=== PATIENT | male | born 1985 | race Caucasian/White ===

== ENCOUNTER 2018-03-11 11:37 | Emergency (ER) | payer OTHER, MEDICAID, SELFPAY ==
[2018-03-11 11:57] VITALS: BP 133/81; PULSE 77; RESP 18; TEMP 37.1; O2SAT 97
--- NOTE | 2018-03-11 14:19 | ED.HA ---
HPI - Headache <Anu Strickland PA-C - Last Filed: 03/11/18 20:50> General Chief Complaint: Headache Stated Complaint: MIGRANE Time Seen by Provider: 03/11/18 14:19 Source: patient Mode of arrival: ambulatory Limitations: no limitations History of Present Illness HPI Narrative: This 32-year-old male comes to the ED today due to migraine which is not improving with [id number] medication. He is a and has had numerous concussions. States he has chronic daily headache, but he has also had migraines for many years, up to twice a month, and sometimes down improve with [id number] Percogesic. He states that this is a typical migraine for him with generalized headache along with sensitivity to light as well as noise and smells. He states that he tried to drink coffee this morning and vomited that, still has some nausea but states this has not improved since he arrived here. He has not been sick recently, denies fever, earache or recent illness. He has not had any difficulty with new weakness, walking or talking and significant other who accompanies with him states he seems normal in terms of mentation and coordination today. Related Data Home Medications Medication Instructions Recorded Confirmed Unknown Night Medication 1 tab PO BEDTIME PRN 03/11/18 03/11/18 diphenhydramine-acetaminophen 1 tab PO PRN PRN 03/11/18 03/11/18 [Percogesic] metoprolol tartrate 1 tab PO BID 03/11/18 03/11/18 Allergies Allergy/AdvReac Type Severity Reaction Status Date / Time amoxicillin Allergy Verified 03/11/18 11:56 Review of Systems <Anu Strickland PA-C - Last Filed: 03/11/18 20:50> Review of Systems All systems reviewed & are unremarkable except as noted in HPI and below Exam <Anu Strickland PA-C - Last Filed: 03/11/18 20:50> Narrative Exam Narrative: GENERAL APPEARANCE: Patient sitting comfortably, in no distress. HEENT: PERRL, EOMI, normal TMs and oropharynx, no sinus TTP NECK: Supple LUNGS: Clear to auscultation bilaterally. HEART: Rate and rhythm regular without murmur, normal S1 and S2, no S3 or S4. ABDOMEN: Soft, NT, ND, + BS x 4 quadrants NEUROLOGIC: Alert and oriented, normal speech, gait and coordination. MUSCULOSKELETAL: Full Csp AROM Initial Vital Signs Initial Vital Signs: Vital Signs Temperature 98.7 F 03/11/18 11:57 Pulse Rate 77 03/11/18 11:57 Respiratory Rate 18 03/11/18 11:57 Blood Pressure 133/81 H 03/11/18 11:57 Pulse Oximetry 97 03/11/18 11:57 <Marysol Vazquez DO - Last Filed: 03/12/18 08:51> Initial Vital Signs Initial Vital Signs: Vital Signs Temperature 98.7 F 03/11/18 11:57 Pulse Rate 77 03/11/18 11:57 Respiratory Rate 18 03/11/18 11:57 Blood Pressure 133/81 H 03/11/18 11:57 Pulse Oximetry 97 03/11/18 11:57 Course <Anu Strickland PA-C - Last Filed: 03/11/18 20:50> Hospital Course: Patient reported feeling much improved after administration of fluids and medications Orders Ordered: Discontinued Medications Sodium Chloride (Normal Saline 0.9%) 1,000 mls @ 1,000 mls/hr IV BOLUS ONE Stop: 03/11/18 14:40 Last Infusion: 03/11/18 16:05 Dose: 0 mls/hr Admin: 03/11/18 14:31 Dose: 1,000 mls/hr Ketorolac Tromethamine (Toradol) 30 mg IV NOW ONE Stop: 03/11/18 14:29 Last Admin: 03/11/18 14:30 Dose: 30 mg Ondansetron HCl (Zofran) 4 mg IV NOW ONE Stop: 03/11/18 13:42 Last Admin: 03/11/18 14:30 Dose: 4 mg Vital Signs - 8 hr 03/11/18 16:02 Pulse Rate 66 Respiratory Rate 14 Blood Pressure [Right Arm] 115/68 Pulse Oximetry 95 <Marysol Vazquez DO - Last Filed: 03/12/18 08:51> Orders Ordered: Discontinued Medications Sodium Chloride (Normal Saline 0.9%) 1,000 mls @ 1,000 mls/hr IV BOLUS ONE Stop: 03/11/18 14:40 Last Infusion: 03/11/18 16:05 Dose: 0 mls/hr Admin: 03/11/18 14:31 Dose: 1,000 mls/hr Ketorolac Tromethamine (Toradol) 30 mg IV NOW ONE Stop: 03/11/18 14:29 Last Admin: 03/11/18 14:30 Dose: 30 mg Ondansetron HCl (Zofran) 4 mg IV NOW ONE Stop: 03/11/18 13:42 Last Admin: 03/11/18 14:30 Dose: 4 mg Vital Signs - 8 hr 03/11/18 16:02 Pulse Rate 66 Respiratory Rate 14 Blood Pressure [Right Arm] 115/68 Pulse Oximetry 95 Discharge Plan Departure Patient Disposition: Home, Self-Care Clinical Impression: Migraine Discharge Date/Time: 03/11/18 16:14 Interventions: ED Discharge Assessment Last Done: 03/11/18 16:14 Instructions: DI for Migraine Activity Restrictions/Additional Instructions: Please get to the closest ED if you have any acutely worsening symptoms, otherwise rest in a dark, quiet room for the rest of the day. Continue your usual medications. You should follow up with your PCP to discuss whether you should be on preventative medication for your migraines Prescriptions: No Action metoprolol tartrate 25 mg tablet 1 tab PO BID RF: 0 diphenhydramine-acetaminophen [Percogesic] 12.5-325 mg Tablet 1 tab PO PRN PRN (Reason: Headache) RF: 0 Unknown Night Medication 1 tab PO BEDTIME PRN (Reason: Migraine Headache) RF: 0 Referrals: Zac WONG [Other] <Marysol Vazquez DO - Last Filed: 03/12/18 08:51> Cosign ED Attending Khurramature Attestation: I was immediately available in the department for consultation. Documentation has been reviewed. I agree with assessment and plan.
[2018-03-11] MEDS: ONDANSETRON 4 MG/2 ML INJ IV (14:30)
[2018-03-11] MEDS: KETOROLAC 60 MG/2 ML VIAL 30 MG IV (14:30)
[2018-03-11] MEDS: SODIUM CHLORIDE 0.9% 1,000 ML 1000 ML IV (14:31)
[2018-03-11 16:02] VITALS: BP 115/68; PULSE 66; RESP 14; O2SAT 95
== END 2018-03-11 16:14 | disposition home or self-care (01) ==
PROVIDERS: Emergency Provider Internal Medicine
DX: G43.909 Migraine, unspecified, not intractable, without status migrainosus (principal)
CPT/HCPCS: 96361; 96374; 96375; 99283; 99284; J1885; J2405

== ENCOUNTER 2018-12-02 16:47 | Emergency (ER) | payer OTHER, MEDICAID, SELFPAY ==
[2018-12-02 16:54] VITALS: BP 143/82; PULSE 89; RESP 19; TEMP 37.2; O2SAT 96; BMI 32.2
--- NOTE | 2018-12-02 19:59 | PC.NURSE ---
pt reports tooth has been broken for a long time. Denies fever, chills N/V/D, vision changes, jaw pain. Reports that he is having a headache from the tooth and his right ear hurts In front of it motioning to the front of his right ear.
--- NOTE | 2018-12-02 20:01 | PC.NURSE ---
Pt states he has an appointment with [facility] for dental care tomorrow. States I was hoping I could sleep some tonight and is in the ER for pain relief.
--- NOTE | 2018-12-02 20:14 | ED.DENTAL ---
HPI - Dental/Oral <Anu Strickland PA-C - Last Filed: 12/02/18 22:41> General Chief complaint: Dental/Oral Stated complaint: TOOTH INFECTION RIGHT SIDE PAIN MIGRAINE Time Seen by Provider: 12/02/18 19:57 Source: patient Mode of arrival: ambulatory Limitations: no limitations History of Present Illness HPI Narrative: This 33-year-old male complains of worsening dental pain. He states that he has had a broken right lower tooth for some time, however pain has been worsening for the past few days to the point that his usual usrf-ewc-[id number] pain relievers (since that time, oragel, warm salt water), are not helping. He states that he has not had any fever. He has not had any new cough, cold, or respiratory symptoms. No earache or sinus pain. He states that he tends to try to avoid medications at home including NSAIDs as he took a lot in the in past. Did take a leftover [place] that he had from shoulder problems and this did not help. He states that he does have a dental appointment in the morning at [facility] and was hoping to get some pain medication for this to help him sleep tonight. He states that he used to use pain medications in the past for injuries but does not now. Review of state [employer] database shows no prescriptions Related Data Home Medications Medication Instructions Recorded Confirmed Unknown Night Medication 1 tab PO BEDTIME PRN 03/11/18 03/11/18 diphenhydramine-acetaminophen 1 tab PO PRN PRN 03/11/18 03/11/18 [Percogesic] metoprolol tartrate 1 tab PO BID 03/11/18 03/11/18 Allergies Allergy/AdvReac Type Severity Reaction Status Date / Time amoxicillin Allergy Verified 03/11/18 11:56 Review of Systems <Anu Strickland PA-C - Last Filed: 12/02/18 22:41> Review of Systems ROS Unobtainable: All systems reviewed & are unremarkable except as noted in HPI and below PFSH <Anu Strickland PA-C - Last Filed: 12/02/18 22:41> Medical History Chronic back pain (Chronic) Chronic daily headache (Chronic) History of multiple concussions (Chronic) Migraine headache (Chronic) Tendinitis (Chronic) Surgical History Hx of tympanostomy tubes (Resolved) Social History Smoking Status: Current every day smoker Tobacco: How many years used: 20 alcohol intake: current substance use type: marijuana Social History Smoking Status: Current every day smoker Tobacco: How many years used: 20 alcohol intake: current substance use type: marijuana Exam <Anu Strickland PA-C - Last Filed: 12/02/18 22:41> Narrative Exam Narrative: GENERAL APPEARANCE: Patient sitting comfortably, in no distress. HEAD: No sinus TTP. EYES: PERRL, EOMI. EARS: Normal auditory canals, TMS intact with normal light reflexes. ORAL CAVITY: Poor dentition with multiple repairs and fractures right lower premolars, 1 with some pulp exposed that is tender. No gumline inflammation or abscess. THROAT: Clear. NECK/THYROID: Neck supple, full range of motion, no cervical lymphadenopathy. LUNGS: Clear to auscultation HEART: RRR without murmur, nl S1, S2, no S3 or S4. Initial Vital Signs Initial Vital Signs: Vital Signs Temperature 98.9 F 12/02/18 16:54 Pulse Rate 89 12/02/18 16:54 Respiratory Rate 12/02/18 16:54 Blood Pressure 143/82 H 12/02/18 16:54 Pulse Oximetry 96 12/02/18 16:54 <Neo Galaviz DO - Last Filed: 12/02/18 22:56> Initial Vital Signs Initial Vital Signs: Vital Signs Temperature 98.9 F 12/02/18 16:54 Pulse Rate 89 12/02/18 16:54 Respiratory Rate 12/02/18 16:54 Blood Pressure 143/82 H 12/02/18 16:54 Pulse Oximetry 96 12/02/18 16:54 Course <Anu Strickland PA-C - Last Filed: 12/02/18 22:41> Orders Ordered: Discontinued Medications Ibuprofen (Advil) 800 mg PO NOW ONE Stop: 12/02/18 20:16 Last Admin: 12/02/18 20:19 Dose: 800 mg Oxycodone/Acetaminophen (Percocet 5/325) 2 tab PO NOW ONE Stop: 12/02/18 20:29 Last Admin: 12/02/18 20:40 Dose: 2 tab Vital Signs - 8 hr 12/02/18 16:54 12/02/18 21:17 Temperature 98.9 F Pulse Rate 89 72 Respiratory Rate 19 14 Blood Pressure 143/82 H 125/85 Pulse Oximetry 96 97 <Neo Galaviz DO - Last Filed: 12/02/18 22:56> Orders Ordered: Discontinued Medications Ibuprofen (Advil) 800 mg PO NOW ONE Stop: 12/02/18 20:16 Last Admin: 12/02/18 20:19 Dose: 800 mg Oxycodone/Acetaminophen (Percocet 5/325) 2 tab PO NOW ONE Stop: 12/02/18 20:29 Last Admin: 12/02/18 20:40 Dose: 2 tab Vital Signs - 8 hr 12/02/18 16:54 12/02/18 21:17 Temperature 98.9 F Pulse Rate 89 72 Respiratory Rate 19 14 Blood Pressure 143/82 H 125/85 Pulse Oximetry 96 97 Discharge Plan Departure Patient Disposition: Home Clinical Impression: Toothache Fracture of tooth Qualifiers: Encounter type: initial encounter Fracture type: closed Qualified Code(s): S02.5XXA - Fracture of tooth (traumatic), initial encounter for closed fracture Discharge Date/Time: 12/02/18 21:19 Interventions: ED Discharge Assessment Last Done: 12/02/18 21:17 Instructions: DI for Dental Pain Activity Restrictions/Additional Instructions: We have given you a dose of strong pain medication tonight along with ibuprofen to help inflammation. Please continue your Orajel at home, and see your dentist as planned tomorrow morning Prescriptions: No Action metoprolol tartrate 25 mg tablet 1 tab PO BID RF: 0 diphenhydramine-acetaminophen [Percogesic] 12.5-325 mg Tablet 1 tab PO PRN PRN (Reason: Headache) RF: 0 Unknown Night Medication 1 tab PO BEDTIME PRN (Reason: Migraine Headache) RF: 0 Referrals: MARVIN, Zac Palacios [Other] [facility] [Other] <Neo Galaviz DO - Last Filed: 12/02/18 22:56> Cosign ED Attending Laura Attestation: I was available for consultation during this patient's emergency department encounter
[2018-12-02] MEDS: IBUPROFEN 400 MG TABLET 800 MG PO (20:19)
--- NOTE | 2018-12-02 20:37 | ED_ITS ---
HPI - Dental/Oral <Anu Strickland PA-C - Last Filed: 12/02/18 22:41> General Chief complaint: Dental/Oral Stated complaint: TOOTH INFECTION RIGHT SIDE PAIN MIGRAINE Time Seen by Provider: 12/02/18 19:57 Source: patient Mode of arrival: ambulatory Limitations: no limitations History of Present Illness HPI Narrative: This 33-year-old male complains of worsening dental pain. He states that he has had a broken right lower tooth for some time, however pain has been worsening for the past few days to the point that his usual mjxf-ylb-[id number] pain relievers (since that time, oragel, warm salt water), are not helping. He states that he has not had any fever. He has not had any new cough, cold, or respiratory symptoms. No earache or sinus pain. He states that he tends to try to avoid medications at home including NSAIDs as he took a lot in the in past. Did take a leftover [place] that he had from shoulder problems and this did not help. He states that he does have a dental appointment in the morning at [facility] and was hoping to get some pain medication for this to help him sleep tonight. He states that he used to use pain medications in the past for injuries but does not now. Review of state [employer] database shows no prescriptions Related Data Home Medications Medication Instructions Recorded Confirmed Unknown Night Medication 1 tab PO BEDTIME PRN 03/11/18 03/11/18 diphenhydramine-acetaminophen 1 tab PO PRN PRN 03/11/18 03/11/18 [Percogesic] metoprolol tartrate 1 tab PO BID 03/11/18 03/11/18 Allergies Allergy/AdvReac Type Severity Reaction Status Date / Time amoxicillin Allergy Verified 03/11/18 11:56 Review of Systems <Anu Strickland PA-C - Last Filed: 12/02/18 22:41> Review of Systems ROS Unobtainable: All systems reviewed & are unremarkable except as noted in HPI and below PFSH <Anu Strickland PA-C - Last Filed: 12/02/18 22:41> Medical History Chronic back pain (Chronic) Chronic daily headache (Chronic) History of multiple concussions (Chronic) Migraine headache (Chronic) Tendinitis (Chronic) Surgical History Hx of tympanostomy tubes (Resolved) Social History Smoking Status: Current every day smoker Tobacco: How many years used: 20 alcohol intake: current substance use type: marijuana Social History Smoking Status: Current every day smoker Tobacco: How many years used: 20 alcohol intake: current substance use type: marijuana Exam <Anu Strickland PA-C - Last Filed: 12/02/18 22:41> Narrative Exam Narrative: GENERAL APPEARANCE: Patient sitting comfortably, in no distress. HEAD: No sinus TTP. EYES: PERRL, EOMI. EARS: Normal auditory canals, TMS intact with normal light reflexes. ORAL CAVITY: Poor dentition with multiple repairs and fractures right lower premolars, 1 with some pulp exposed that is tender. No gumline inflammation or abscess. THROAT: Clear. NECK/THYROID: Neck supple, full range of motion, no cervical lymphadenopathy. LUNGS: Clear to auscultation HEART: RRR without murmur, nl S1, S2, no S3 or S4. Initial Vital Signs Initial Vital Signs: Vital Signs Temperature 98.9 F 12/02/18 16:54 Pulse Rate 89 12/02/18 16:54 Respiratory Rate 12/02/18 16:54 Blood Pressure 143/82 H 12/02/18 16:54 Pulse Oximetry 96 12/02/18 16:54 <Neo Galaviz DO - Last Filed: 12/02/18 22:56> Initial Vital Signs Initial Vital Signs: Vital Signs Temperature 98.9 F 12/02/18 16:54 Pulse Rate 89 12/02/18 16:54 Respiratory Rate 12/02/18 16:54 Blood Pressure 143/82 H 12/02/18 16:54 Pulse Oximetry 96 12/02/18 16:54 Course <Anu Strickland PA-C - Last Filed: 12/02/18 22:41> Orders Ordered: Discontinued Medications Ibuprofen (Advil) 800 mg PO NOW ONE Stop: 12/02/18 20:16 Last Admin: 12/02/18 20:19 Dose: 800 mg Oxycodone/Acetaminophen (Percocet 5/325) 2 tab PO NOW ONE Stop: 12/02/18 20:29 Last Admin: 12/02/18 20:40 Dose: 2 tab Vital Signs - 8 hr 12/02/18 16:54 12/02/18 21:17 Temperature 98.9 F Pulse Rate 89 72 Respiratory Rate 19 14 Blood Pressure 143/82 H 125/85 Pulse Oximetry 96 97 <Neo Galaviz DO - Last Filed: 12/02/18 22:56> Orders Ordered: Discontinued Medications Ibuprofen (Advil) 800 mg PO NOW ONE Stop: 12/02/18 20:16 Last Admin: 12/02/18 20:19 Dose: 800 mg Oxycodone/Acetaminophen (Percocet 5/325) 2 tab PO NOW ONE Stop: 12/02/18 20:29 Last Admin: 12/02/18 20:40 Dose: 2 tab Vital Signs - 8 hr 12/02/18 16:54 12/02/18 21:17 Temperature 98.9 F Pulse Rate 89 72 Respiratory Rate 19 14 Blood Pressure 143/82 H 125/85 Pulse Oximetry 96 97 Discharge Plan Departure Patient Disposition: Home Clinical Impression: Toothache Fracture of tooth Qualifiers: Encounter type: initial encounter Fracture type: closed Qualified Code(s): S02.5XXA - Fracture of tooth (traumatic), initial encounter for closed fracture Discharge Date/Time: 12/02/18 21:19 Interventions: ED Discharge Assessment Last Done: 12/02/18 21:17 Instructions: DI for Dental Pain Activity Restrictions/Additional Instructions: We have given you a dose of strong pain medication tonight along with ibuprofen to help inflammation. Please continue your Orajel at home, and see your dentist as planned tomorrow morning Prescriptions: No Action metoprolol tartrate 25 mg tablet 1 tab PO BID RF: 0 diphenhydramine-acetaminophen [Percogesic] 12.5-325 mg Tablet 1 tab PO PRN PRN (Reason: Headache) RF: 0 Unknown Night Medication 1 tab PO BEDTIME PRN (Reason: Migraine Headache) RF: 0 Referrals: MARVIN, Zac Palacios [Other] [facility] [Other] <Neo Galaviz DO - Last Filed: 12/02/18 22:56> Cosign ED Attending Laura Attestation: I was available for consultation during this patient's emergency department encounter
[2018-12-02] MEDS: OXYCODONE/ACETAMINOPHEN 5/325 TABLET 2 TAB PO (20:40)
[2018-12-02 21:17] VITALS: BP 125/85; PULSE 72; RESP 14; O2SAT 97
== END 2018-12-02 21:19 | disposition home or self-care (01) ==
PROVIDERS: Emergency Provider Internal Medicine
DX: K03.81 Cracked tooth (principal)
CPT/HCPCS: 99282

== ENCOUNTER 2018-12-20 22:16 | Emergency (ER) | payer OTHER, MEDICAID, SELFPAY ==
[2018-12-20 23:04] VITALS: BP 152/93; PULSE 75; RESP 18; TEMP 36.9; O2SAT 98; BMI 31.9
[2018-12-21] MEDS: KETOROLAC 60 MG/2 ML VIAL 30 MG IV (01:08)
[2018-12-21] MEDS: diphenhydrAMINE 50 MG/ML VIAL 25 MG IV (01:08)
[2018-12-21] MEDS: METOCLOPRAMIDE 10 MG/2 ML INJ IV (01:09)
[2018-12-21] MEDS: SODIUM CHLORIDE 0.9% 1,000 ML 1000 ML IV (01:09)
--- NOTE | 2018-12-21 01:47 | ED.DENTAL ---
HPI - Dental/Oral General Chief complaint: Dental/Oral Stated complaint: DENTAL PAIN, HEADACHE Time Seen by Provider: 12/21/18 01:01 Source: patient Mode of arrival: ambulatory Limitations: no limitations History of Present Illness HPI Narrative: Patient is a 33-year-old male with a history of migraines here for evaluation of a migraine. He states that he has known dental issues both on the left lower in the left upper teeth. [place] His next scheduled dental appointment is not for several weeks. He states that his pain in the left side of his mouth has worsened over the past several days. Related Data Home Medications Medication Instructions Recorded Confirmed Unknown Night Medication 1 tab PO BEDTIME PRN 03/11/18 03/11/18 diphenhydramine-acetaminophen 1 tab PO PRN PRN 03/11/18 03/11/18 [Percogesic] metoprolol tartrate 1 tab PO BID 03/11/18 03/11/18 Previous Rx's Medication Instructions Recorded clindamycin HCl 300 mg PO Q6H 7 Days #28 cap 12/21/18 hydrocodone-acetaminophen [[place]] 1 tab PO Q4-6H PRN #10 tab 12/21/18 Allergies Allergy/AdvReac Type Severity Reaction Status Date / Time amoxicillin Allergy Verified 12/20/18 23:04 Review of Systems Constitutional Denies fatigue, Denies fever(s), Reports headache(s) and Denies weakness ENT Ears, Nose, Mouth, and Throat: Denies change in voice, Denies dizziness, Reports headache(s), Denies disequilibrium, Denies sore throat and Denies throat swelling Comments: Dental pain Cardiovascular Denies dyspnea Respiratory Denies dyspnea Musculoskeletal Denies myalgias and Denies arthralgias Integumentary/Breasts Denies rash Neurologic Denies confusion, Denies dizziness, Reports headache(s), Denies paresthesias, Denies disequilibrium and Denies weakness Psychiatric Denies anxiety and Denies confusion Endocrine Denies fatigue Allergic/Immunologic Denies throat swelling [facility] Medical History Chronic back pain (Chronic) Chronic daily headache (Chronic) History of multiple concussions (Chronic) Migraine headache (Chronic) Tendinitis (Chronic) Social History Smoking Status: Current every day smoker Tobacco: How many years used: 20 alcohol intake: current substance use type: marijuana Exam Initial Vital Signs Initial Vital Signs: Vital Signs Temperature 98.5 F 12/20/18 23:04 Pulse Rate 75 12/20/18 23:04 Respiratory Rate 18 12/20/18 23:04 Blood Pressure 152/93 H 12/20/18 23:04 Pulse Oximetry 98 12/20/18 23:04 Const General: well developed, well groomed and No acute distress Orientation: alert, awake and oriented x3 HENMT Teeth and gingiva: caries, poor dentition and other (Tooth 18. Fractured) Throat: posterior oropharynx normal Resp Effort & Inspection: normal respiratory effort Cardio Rate: regular rate Rhythm: regular rhythm Skin Lesions: no lesions Rashes: no rashes Neuro General: alert, awake and oriented x3 Cognition: normal cognition Speech: speech normal Gait: normal gait Extrem General: normal to inspection and capillary refill normal Psych Appearance: grossly normal and well kempt Course Orders Ordered: Discontinued Medications Hydrocodone Bitart/Acetaminophen (Vicodin Prepack) 1 bottle MISC SEEINSTR ONE Stop: 12/21/18 02:04 Last Admin: 12/21/18 02:44 Dose: 1 bottle Hydrocodone Bitart/Acetaminophen ([place] 5/325) 1 tab PO NOW ONE Stop: 12/21/18 02:04 Last Admin: 12/21/18 02:44 Dose: 1 tab Clindamycin HCl (Cleocin) 300 mg PO NOW ONE Stop: 12/21/18 02:04 Last Admin: 12/21/18 02:44 Dose: 300 mg Diphenhydramine HCl (Benadryl) 25 mg IV NOW ONE Stop: 12/21/18 00:38 Last Admin: 12/21/18 01:08 Dose: 25 mg Sodium Chloride (Normal Saline 0.9%) 1,000 mls @ 1,000 mls/hr IV BOLUS ONE Stop: 12/21/18 01:36 Last Infusion: 12/21/18 02:33 Dose: 0 mls/hr Admin: 12/21/18 01:09 Dose: 1,000 mls/hr Ketorolac Tromethamine (Toradol) 30 mg IV NOW ONE Stop: 12/21/18 00:38 Last Admin: 12/21/18 01:08 Dose: 30 mg Metoclopramide HCl (Reglan) 10 mg IV NOW ONE Stop: 12/21/18 00:38 Last Admin: 12/21/18 01:09 Dose: 10 mg Vital Signs - 8 hr 12/20/18 23:04 Temperature 98.5 F Pulse Rate 75 Respiratory Rate 18 Blood Pressure 152/93 H Pulse Oximetry 98 MDM - Dental/Oral MDM Narrative Medical decision making narrative: Patient reported improvement of some of his headache after the medicines here in the ER. Has no drainable abscess noted on the exam today. Does have multiple caries and fractured teeth. Informed him he needed to follow up with his dentist regarding this. Will send home with a prescription for pain medication and also antibiotics. He was given a 1st dose of these medications here in the ER. Patient expressed understanding and agreement plan. Discharge Plan Departure Patient Disposition: Home Clinical Impression: Dental caries Headache Qualifiers: Headache type: unspecified Headache chronicity pattern: unspecified pattern Intractability: not intractable Qualified Code(s): R51 - Headache Instructions: DI for Dental Pain Activity Restrictions/Additional Instructions: Take the medications as directed. You were given your 1st dose of antibiotics here in the emergency department. The next dose will be later this morning. Your dental issues do require a dentist. Return to the emergency department for any new or worsening symptoms Prescriptions: New clindamycin HCl 300 mg capsule 300 mg PO Q6H 7 Days Qty: 28 RF: 0 hydrocodone-acetaminophen [[place]] 5-325 mg tablet 1 tab PO Q4-6H PRN (Reason: pain) Qty: 10 RF: 0 No Action metoprolol tartrate 25 mg tablet 1 tab PO BID RF: 0 diphenhydramine-acetaminophen [Percogesic] 12.5-325 mg Tablet 1 tab PO PRN PRN (Reason: Headache) RF: 0 Unknown Night Medication 1 tab PO BEDTIME PRN (Reason: Migraine Headache) RF: 0
[2018-12-21] MEDS: HYDROCODONE/ACET 5/325 PREPACK 1 BOTTLE MISC (02:44)
[2018-12-21] MEDS: CLINDAMYCIN 150 MG CAPSULE 300 MG PO (02:44)
[2018-12-21] MEDS: HYDROCODONE/ACET 5/325 TABLET 1 TAB PO (02:44)
[2018-12-21 02:59] VITALS: BP 126/78; PULSE 80; RESP 18; O2SAT 98
== END 2018-12-21 03:05 | disposition home or self-care (01) ==
PROVIDERS: Emergency Provider Emergency Medicine
DX: K02.9 Dental caries, unspecified (principal); R51 Headache
CPT/HCPCS: 36591; 96361; 96374; 96375; 99283; 99284; J1200; J1885; J2765

== ENCOUNTER 2019-09-19 21:04 | Emergency (ER) | payer OTHER, MEDICAID, SELFPAY ==
[2019-09-19 21:13] VITALS: BP 138/78; PULSE 88; RESP 18; TEMP 36.9; O2SAT 98
--- NOTE | 2019-09-19 21:21 | ED.HA ---
HPI - Headache General Chief Complaint: Headache Stated Complaint: migraine Time Seen by Provider: 09/19/19 21:15 Source: patient Mode of arrival: Ambulatory Limitations: no limitations History of Present Illness HPI Narrative: 34-year-old male with a history of migraines here with what he states his migraine. He states that he did have a headache yesterday but he took his medication at home and is seem to keep it low. He states that today the medicines were not working. He states his feels just like his prior headaches. No fevers. Related Data Home Medications Medication Instructions Recorded Confirmed Unknown Night Medication 1 tab PO BEDTIME PRN 03/11/18 03/11/18 diphenhydramine-acetaminophen 1 tab PO PRN PRN 03/11/18 03/11/18 [Percogesic] metoprolol tartrate 1 tab PO BID 03/11/18 03/11/18 Previous Rx's Medication Instructions Recorded hydrocodone-acetaminophen [[place]] 1 tab PO Q4-6H PRN #10 tab 12/21/18 Allergies Allergy/AdvReac Type Severity Reaction Status Date / Time amoxicillin Allergy Verified 12/20/18 23:04 Review of Systems Constitutional Constitutional: Denies fever(s) and Reports headache(s) Eyes Eyes: Reports photophobia ENT Ears, Nose, Mouth, and Throat: Denies vertigo, Denies dizziness, Reports headache(s) and Denies disequilibrium Cardiovascular Cardiovascular: Denies chest pain and Denies dyspnea Respiratory Respiratory: Denies dyspnea Gastrointestinal Gastrointestinal: Denies abdominal pain Integumentary/Breasts Skin/Breast: Denies rash Neurologic Neurologic: Denies confusion, Denies vertigo, Denies dizziness, Reports headache(s) and Denies disequilibrium Psychiatric Psychiatric: Denies confusion Hematologic/Lymphatic Hematologic/Lymphatic: Denies easy bleeding and Denies easy bruising Patient History Medical History Chronic back pain (Chronic) Chronic daily headache (Chronic) History of multiple concussions (Chronic) Migraine headache (Chronic) Tendinitis (Chronic) Surgical History Hx of tympanostomy tubes (Resolved) Social History Smoking Status: Current every day smoker Tobacco: How many years used: 20 alcohol intake: current substance use type: marijuana Smoking Status: Current every day smoker alcohol intake frequency: holidays/special occasions only Substance Use Type: marijuana Exam Initial Vital Signs Initial Vital Signs: Vital Signs Temperature 98.4 F 09/19/19 21:13 Pulse Rate 88 09/19/19 21:13 Respiratory Rate 18 09/19/19 21:13 Blood Pressure 138/78 09/19/19 21:13 Pulse Oximetry 98 09/19/19 21:13 Const General: cooperative, healthy appearing, comfortable and well developed Orientation: alert, awake and oriented x3 HENMT Head: normal to inspection and normocephalic Resp Effort & Inspection: normal respiratory effort Auscultation: clear to auscultation bilaterally Cardio Rate: regular rate Rhythm: regular rhythm Skin Lesions: no lesions Rashes: no rashes Neuro General: alert, awake and oriented x3 Cranial Nerves: CN's II-XI intact bilaterally Cognition: normal cognition Speech: speech normal Gait: normal gait Extrem General: normal to inspection and capillary refill normal Psych Appearance: grossly normal and well kempt Course Orders Ordered: Discontinued Medications Diphenhydramine HCl (Benadryl) 25 mg IV NOW ONE Stop: 09/19/19 21:22 Last Admin: 09/19/19 21:37 Dose: 25 mg Documented by: SHAYLA Sodium Chloride (Normal Saline 0.9%) 1,000 mls @ 1,000 mls/hr IV BOLUS ONE Stop: 09/19/19 22:20 Last Admin: 09/19/19 21:37 Dose: 1,000 mls/hr Documented by: SHAYLA Ketorolac Tromethamine (Toradol) 30 mg IV NOW ONE Stop: 09/19/19 21:22 Last Admin: 09/19/19 21:37 Dose: 30 mg Documented by: SHAYLA Metoclopramide HCl (Reglan) 10 mg IV NOW ONE Stop: 09/19/19 21:22 Last Admin: 09/19/19 21:37 Dose: 10 mg Documented by: SHAYLA Vital Signs Vital signs: Vital Signs - 8 hr 09/19/19 21:13 Temperature 98.4 F Pulse Rate 88 Respiratory Rate 18 Blood Pressure 138/78 Pulse Oximetry 98 MDM - Headache MDM Narrative Medical decision making narrative: Patient reports improvement of symptoms after medications. He has a history of migraines and states this feels just like his migraines. Was not a sudden onset. No neck pain. No fevers. Will hold on any radiologic studies for now. Patient has medication at home that he takes. He was given return precautions and follow-up instructions. He expressed understanding and agreement with plan. Discharge Plan Departure Patient Disposition: Home Clinical Impression: Migraine Qualifiers: Migraine type: unspecified Status migrainosus presence: without status migrainosus Intractability: not intractable Qualified Code(s): G43.909 - Migraine, unspecified, not intractable, without status migrainosus Instructions: DI for Migraine Activity Restrictions/Additional Instructions: Continue all of your medications as directed. Contact your primary provider for follow-up. Return to the emergency department for any new or worsening symptoms Prescriptions: No Action metoprolol tartrate 25 mg tablet 1 tab PO BID RF: 0 diphenhydramine-acetaminophen [Percogesic] 12.5-325 mg Tablet 1 tab PO PRN PRN (Reason: Headache) RF: 0 Unknown Night Medication 1 tab PO BEDTIME PRN (Reason: Migraine Headache) RF: 0 hydrocodone-acetaminophen [[place]] 5-325 mg tablet 1 tab PO Q4-6H PRN (Reason: pain) Qty: 10 RF: 0
[2019-09-19] MEDS: METOCLOPRAMIDE 10 MG/2 ML INJ IV (21:37)
[2019-09-19] MEDS: diphenhydrAMINE 50 MG/ML VIAL 25 MG IV (21:37)
[2019-09-19] MEDS: KETOROLAC 60 MG/2 ML VIAL 30 MG IV (21:37)
[2019-09-19] MEDS: SODIUM CHLORIDE 0.9% 1,000 ML 1000 ML IV (21:37)
[2019-09-19 22:46] VITALS: BP 116/75; PULSE 67; RESP 18; O2SAT 96
== END 2019-09-19 22:46 | disposition home or self-care (01) ==
PROVIDERS: Emergency Provider Emergency Medicine
DX: G43.909 Migraine, unspecified, not intractable, without status migrainosus (principal)
CPT/HCPCS: 36415; 96361; 96374; 96375; 99284; J1200; J1885; J2765

== ENCOUNTER 2019-12-06 20:27 | Emergency (ER) | payer OTHER, MEDICAID, SELFPAY ==
[2019-12-06 20:33] VITALS: BP 135/68; PULSE 115; RESP 24; TEMP 36.3; O2SAT 96
--- NOTE | 2019-12-06 22:28 | ED_ITS ---
HPI - Fever General Chief Complaint: Fever Stated Complaint: chills, cough, vomiting Time Seen by Provider: 12/06/19 22:28 Source: patient Mode of arrival: Ambulatory Limitations: no limitations History of Present Illness HPI Narrative: This is a 34-year-old male comes in with fevers, chills, patient states he has had nausea and vomiting that started today. He has had a cough but he states this is been chronic and likely secondary to his tobacco use. He has had a little bit yellow productive sputum. Productive sputum is not new. He denies any chest pain or shortness of breath. He has had a little bit of h eadache. No neck pain. No altered mental status. He has not had a bowel movement for about 24 hours but states he is passing gas regularly. He denies any abdominal pain. Denies any back or flank pain. Denies any urinary frequency, dysuria urgency. No rashes or skin changes. He states he has myalgias and hurts all over. He does have a roommate who had recent cold-like symptoms. He is also accompanied by his was here for her ankle. He has a history of migraines, and is supposed to take vitamin D3. He denies any other medical history. Has multiple history of orthopedic injuries but no prior surgeries. He does use tobacco as well as marijuana, denies other illicit. Occasional alcohol none recent. Related Data Home Medications Medication Instructions Recorded Confirmed Unknown Night Medication 1 tab PO BEDTIME PRN 03/11/18 03/11/18 diphenhydramine-acetaminophen 1 tab PO PRN PRN 03/11/18 03/11/18 [Percogesic] metoprolol tartrate 1 tab PO BID 03/11/18 03/11/18 Previous Rx's Medication Instructions Recorded hydrocodone-acetaminophen [[place]] 1 tab PO Q4-6H PRN #10 tab 12/21/18 ondansetron HCl [Zofran] 4 mg PO Q6H PRN #5 tab 12/06/19 oseltamivir [Tamiflu] 75 mg PO Q12H 5 Days #10 cap 12/06/19 Allergies Allergy/AdvReac Type Severity Reaction Status Date / Time amoxicillin Allergy Verified 12/20/18 23:04 Review of Systems Review of Systems ROS Unobtainable: All systems reviewed & are unremarkable except as noted in HPI and below Patient History Medical History Chronic back pain (Chronic) Chronic daily headache (Chronic) History of multiple concussions (Chronic) Migraine headache (Chronic) Tendinitis (Chronic) Surgical History Hx of tympanostomy tubes (Resolved) Social History Smoking Status: Current every day smoker Tobacco: How many years used: 20 alcohol intake: current substance use type: marijuana Smoking Status: Current every day smoker alcohol intake frequency: holidays/special occasions only Substance Use Type: marijuana Exam Narrative Exam Narrative: GEN: well nourished, well appearing male, alert and oriented x 3, patient appears to be in moderate distress. Patient is diaphoretic. He feels warm to the touch. HEENT: Atraumatic, pupils are equal round reactive to light, extraocular movements are intact, nares are clear, TMs are clear with no fluid, there is no conjunctival pallor. Throat is clear without any exudates, erythema, tonsillar enlargement or uvular deviation HEART: Regular rate and rhythm without murmur, clicks, rubs. LUNGS:Lungs clear to auscultation, no wheezes, rales, crackles, chest moves symmetrically, dry cough is present. No tachypnea accessory muscle use. ABD:bowel sounds normal, soft, non-tender, no guarding, rebound, rigidity, no masses noted, no hepatosplenomegaly :No CVA tenderness MSCL: Non-tender, no muscle atrophy, full range of motion, normal gait NEURO:CN 2-12 intact, sensation normal SKIN: No rash or other skin changes. No petechiae. Initial Vital Signs Initial Vital Signs: Vital Signs Temperature 97.4 F L 12/06/19 20:33 Pulse Rate 115 H 12/06/19 20:33 Respiratory Rate 24 12/06/19 20:33 Blood Pressure 135/68 12/06/19 20:33 Pulse Oximetry 96 12/06/19 20:33 Course Orders Ordered: ED Orders 12/06/19 21:17 Influenza A & B (PCR) Stat Discontinued Medications Ondansetron HCl (Zofran Odt Prepack) 1 bottle MISC SEEINSTR ONE Stop: 03/11/20 22:47 Last Admin: 12/06/19 22:58 Dose: 1 bottle Documented by: SHAYLA Oseltamivir Phosphate (Tamiflu) 75 mg PO NOW ONE Stop: 12/06/19 22:47 Last Admin: 12/06/19 22:58 Dose: 75 mg Documented by: SHAYLA Vital Signs Vital signs: Vital Signs - 8 hr 12/06/19 23:05 Temperature 98.8 F Pulse Rate 105 H Respiratory Rate 18 Blood Pressure 113/63 Pulse Oximetry 96 MDM - Fever Lab Data Attestation: I reviewed the patient's lab results. Labs: Lab Results 12/06/19 Range/Units 21:17 Influenza A (RT-PCR) Flu a positive H (NEGATIVE) Influenza B (RT-PCR) Flu b negative (NEGATIVE) Discharge Plan Departure Patient Disposition: Home Clinical Impression: Influenza A Discharge Date/Time: 12/06/19 23:06 Instructions: DI for Influenza -- Adult Activity Restrictions/Additional Instructions: Follow-up with your physician in the next week if her symptoms are not starting to improve. Continue ibuprofen and/or Tylenol as needed for fevers. You may take Tamiflu 1 tablet twice daily x5 days. You may take Zofran 1 tablet every 6 hours as needed for nausea. Return to ER for new shortness of breath, chest pain or pressure, lightheadedness or passing out, persistent vomiting, black or bloody stools, abdominal pain, swelling in her extremities, altered mental status or new or concerning symptoms. Prescriptions: New ondansetron HCl [Zofran] 4 mg tablet 4 mg PO Q6H PRN (Reason: nausea and vomiting) Qty: 5 RF: 0 oseltamivir [Tamiflu] 75 mg capsule 75 mg PO Q12H 5 Days Qty: 10 RF: 0 No Action metoprolol tartrate 25 mg tablet 1 tab PO BID RF: 0 diphenhydramine-acetaminophen [Percogesic] 12.5-325 mg Tablet 1 tab PO PRN PRN (Reason: Headache) RF: 0 Unknown Night Medication 1 tab PO BEDTIME PRN (Reason: Migraine Headache) RF: 0 hydrocodone-acetaminophen [[place]] 5-325 mg tablet 1 tab PO Q4-6H PRN (Reason: pain) Qty: 10 RF: 0 Stand Alone Forms: Work Release Note
[2019-12-06 22:38] LABS: Influenza A - CEPHEID Flu A POSITIVE (NEGATIVE); Influenza B - CEPHEID Flu B NEGATIVE (NEGATIVE)
[2019-12-06] MEDS: ONDANSETRON 4 MG ODT PREPACK 1 BOTTLE MISC (22:58)
[2019-12-06] MEDS: OSELTAMIVIR 75 MG CAPSULE PO (22:58)
[2019-12-06 23:05] VITALS: BP 113/63; PULSE 105; RESP 18; TEMP 37.1; O2SAT 96
== END 2019-12-06 23:06 | disposition home or self-care (01) ==
PROVIDERS: Emergency Provider Emergency Medicine
DX: J10.1 Influenza due to other identified influenza virus with other respiratory manifestations (principal)
CPT/HCPCS: 87502; 99283

== ENCOUNTER 2019-12-10 04:18 | Emergency (ER) | payer OTHER, MEDICAID, SELFPAY ==
[2019-12-10 04:27] VITALS: BP 140/78; PULSE 84; RESP 18; TEMP 36.4; O2SAT 97; BMI 31.9
--- NOTE | 2019-12-10 04:36 | ED.BACK ---
HPI - Back Pain/Injury General Chief Complaint: Back Pain/Injury Stated Complaint: low back pain, rt hip pain Time Seen by Provider: 12/10/19 04:23 Source: patient Mode of arrival: Ambulatory Limitations: no limitations History of Present Illness HPI Narrative: 34-year-old male here for evaluation of lower back pain and right hip and right upper leg pain. He states the symptoms have been going on for past 24-36 hours. He was recently here in the emergency department and diagnosed with the flu. He has been taking Tylenol and ibuprofen for those symptoms any does feel like that the body aches associated with the flu have improved. He is not having any bowel or bladder symptoms. No fevers. No specific trauma. Did not fall on his hip. Related Data Home Medications Medication Instructions Recorded Confirmed Unknown Night Medication 1 tab PO BEDTIME PRN 03/11/18 03/11/18 diphenhydramine-acetaminophen 1 tab PO PRN PRN 03/11/18 03/11/18 [Percogesic] metoprolol tartrate 1 tab PO BID 03/11/18 03/11/18 Previous Rx's Medication Instructions Recorded hydrocodone-acetaminophen [[place]] 1 tab PO Q4-6H PRN #10 tab 12/21/18 ondansetron HCl [Zofran] 4 mg PO Q6H PRN #5 tab 12/06/19 oseltamivir [Tamiflu] 75 mg PO Q12H 5 Days #10 cap 12/06/19 cyclobenzaprine 10 mg PO TID PRN #12 tab 12/10/19 hydrocodone-acetaminophen [[place]] 1 tab PO Q6H PRN #7 tab 12/10/19 Allergies Allergy/AdvReac Type Severity Reaction Status Date / Time amoxicillin Allergy Verified 12/20/18 23:04 Review of Systems Constitutional Constitutional: Denies headache(s) ENT Ears, Nose, Mouth, and Throat: Denies headache(s) Musculoskeletal Musculoskeletal: Reports back pain Comments: Right hip pain Integumentary/Breasts Skin/Breast: Denies lesions and Denies rash Neurologic Neurologic: Denies behavioral changes and Denies headache(s) Psychiatric Psychiatric: Denies behavioral changes Hematologic/Lymphatic Hematologic/Lymphatic: Denies easy bleeding and Denies easy bruising Patient History Medical History Chronic back pain (Chronic) Chronic daily headache (Chronic) History of multiple concussions (Chronic) Migraine headache (Chronic) Tendinitis (Chronic) Social History Smoking Status: Current every day smoker Tobacco: How many years used: 20 alcohol intake: current substance use type: marijuana Smoking Status: Current every day smoker alcohol intake frequency: holidays/special occasions only Substance Use Type: marijuana Exam Initial Vital Signs Initial Vital Signs: Vital Signs Temperature 97.6 F 12/10/19 04:27 Pulse Rate 84 12/10/19 04:27 Respiratory Rate 18 12/10/19 04:27 Blood Pressure 140/78 12/10/19 04:27 Pulse Oximetry 97 12/10/19 04:27 Const General: cooperative and comfortable Resp Effort & Inspection: normal respiratory effort Cardio Rate: regular rate Back/Spine/Pelvis Thoracic/Lumbar Spine: No thoracic spinal tenderness and No lumbar spinal tenderness Skin Lesions: no lesions Rashes: no rashes Extrem General: capillary refill normal Psych Appearance: grossly normal and well kempt Course Orders Ordered: Discontinued Medications Al Hydrox/Mg Hydrox/Simethicone 20 ml/ Lidocaine HCl 15 ml 0 ml PO NOW ONE Stop: 12/10/19 04:37 Last Admin: 12/10/19 04:45 Dose: Not Given Documented by: MAREK Ketorolac Tromethamine (Toradol) 30 mg IM NOW ONE Stop: 12/10/19 04:38 Vital Signs Vital signs: Vital Signs - 8 hr 12/10/19 04:27 Temperature 97.6 F Pulse Rate 84 Respiratory Rate 18 Blood Pressure 140/78 Pulse Oximetry 97 MDM - Back Pain/Injury MDM Narrative Medical decision making narrative: Patient without red flag symptoms consistent with cauda equina. No specific trauma. I feel we could hold on radiologic studies. I do suspect this is musculoskeletal. Was given Toradol here in the ER. Will send home with other symptomatic treatment. Patient was given return precautions and follow-up instructions. He expressed understanding and agreement. Discharge Plan Departure Patient Disposition: Home Clinical Impression: Lumbar back pain Radiculopathy Qualifiers: Spinal region: lumbosacral Qualified Code(s): M54.17 - Radiculopathy, lumbosacral region Instructions: DI for Back Pain With Sciatica Activity Restrictions/Additional Instructions: Take antibiotics as directed. Contact your primary provider for a follow-up. Return to the emergency department for any new or worsening symptoms Prescriptions: New cyclobenzaprine 10 mg tablet 10 mg PO TID PRN (Reason: muscle spasm) Qty: 12 RF: 0 hydrocodone-acetaminophen [[place]] 5-325 mg tablet 1 tab PO Q6H PRN (Reason: pain) Qty: 7 RF: 0 No Action ondansetron HCl [Zofran] 4 mg tablet 4 mg PO Q6H PRN (Reason: nausea and vomiting) Qty: 5 RF: 0 oseltamivir [Tamiflu] 75 mg capsule 75 mg PO Q12H 5 Days Qty: 10 RF: 0 metoprolol tartrate 25 mg tablet 1 tab PO BID RF: 0 diphenhydramine-acetaminophen [[place]ercoges[place]] 12.5-325 mg Tablet 1 tab PO PRN PRN (Reason: Headache) RF: 0 Unknown Night Medication 1 tab PO BEDTIME PRN (Reason: Migraine Headache) RF: 0 hydrocodone-acetaminophen [[place]] 5-325 mg tablet 1 tab PO Q4-6H PRN (Reason: pain) Qty: 10 RF: 0
[2019-12-10] MEDS: KETOROLAC 60 MG/2 ML VIAL 30 MG IM (05:05)
[2019-12-10 05:10] VITALS: BP 130/73; PULSE 83; RESP 18; TEMP 36.6; O2SAT 100
== END 2019-12-10 05:11 | disposition home or self-care (01) ==
PROVIDERS: Emergency Provider Emergency Medicine
DX: M54.17 Radiculopathy, lumbosacral region (principal); M54.6 Pain in thoracic spine
CPT/HCPCS: 96372; 99283; J1885

== ENCOUNTER 2020-02-25 20:27 | Emergency (ER) | payer OTHER, MEDICAID, SELFPAY ==
[2020-02-25 20:47] VITALS: BP 120/69; PULSE 85; RESP 20; TEMP 36.8; O2SAT 99; BMI 28.8
--- NOTE | 2020-02-25 20:56 | DI.RAD.S_ITS ---
PROCEDURE: XR FINGER RT MIN 2V INDICATIONS: caught in mower, blood and limited movement to distal TECHNIQUE: AP hand, 2 views of the second finger(s) acquired. COMPARISON: None. FINDINGS: Bones: No fractures or dislocations. The second digit appears intact. The there is a remote partially dictation of the third digit tuft. No suspicious bony lesions. Soft tissues: No suspicious soft tissue calcifications. No radiodense foreign bodies in the soft tissue. IMPRESSION: 1. Intact the second digit. 2. Probable remote partially dictation of the third digit tuft. Dictated by: Mica Chu M.D. on 02/25/2020 at 21:38 Approved by: Mica Chu M.D. on 02/25/2020 at 21:39
--- NOTE | 2020-02-25 22:41 | ED.GENADULT ---
HPI - General Adult General Chief complaint: Extremity Injury, Upper Stated complaint: injured right index finger Time Seen by Provider: 02/25/20 22:18 Source: patient Mode of arrival: Ambulatory Limitations: no limitations History of Present Illness HPI narrative: 34-year-old [id number] male here for evaluation of an injury that he sustained to the tip of his right index finger. Patient states that he was working on his mobile or when he caught his finger between the bleed and the edge of the more. The more was not on at the time. He was try and dislodge a object that was stuck in the area. No other injuries reported from the event. Related Data Home Medications Medication Instructions Recorded Confirmed Unknown Night Medication 1 tab PO BEDTIME PRN 03/11/18 03/11/18 diphenhydramine-acetaminophen 1 tab PO PRN PRN 03/11/18 03/11/18 [Percogesic] metoprolol tartrate 1 tab PO BID 03/11/18 03/11/18 Previous Rx's Medication Instructions Recorded hydrocodone-acetaminophen [[place]] 1 tab PO Q4-6H PRN #10 tab 12/21/18 ondansetron HCl [Zofran] 4 mg PO Q6H PRN #5 tab 12/06/19 cyclobenzaprine 10 mg PO TID PRN #12 tab 12/10/19 hydrocodone-acetaminophen [[place]] 1 tab PO Q6H PRN #7 tab 12/10/19 Allergies Allergy/AdvReac Type Severity Reaction Status Date / Time amoxicillin Allergy Verified 12/20/18 23:04 Review of Systems ENT Ears, Nose, Mouth, and Throat: Denies disequilibrium Musculoskeletal Comments: Right index finger pain Integumentary/Breasts Comments: Bruising to the right index finger Neurologic Neurologic: Denies disequilibrium Hematologic/Lymphatic Hematologic/Lymphatic: Denies easy bleeding and Denies easy bruising Patient History Medical History Chronic back pain (Chronic) Chronic daily headache (Chronic) History of multiple concussions (Chronic) Migraine headache (Chronic) Tendinitis (Chronic) Surgical History Hx of tympanostomy tubes (Resolved) Social History Smoking Status: Current every day smoker Tobacco: How many years used: 20 alcohol intake: current substance use type: marijuana Smoking Status: Current every day smoker alcohol intake frequency: 0-2 drinks per day Substance Use Type: marijuana Exam Initial Vital Signs Initial Vital Signs: Vital Signs Temperature 98.3 F 02/25/20 20:47 Pulse Rate 85 02/25/20 20:47 Respiratory Rate 20 02/25/20 20:47 Blood Pressure 120/69 02/25/20 20:47 Pulse Oximetry 99 02/25/20 20:47 Cardio Pulses: radial pulses present on the right Skin Other: Bruising to distal right index finger Extrem Other: Right index finger MCP and PIP joint unremarkable. Some pain with flexion of the D IP joint however has quite a bit of discomfort with palpation of the distal right index finger. Does have a very distal subungual hematoma however proximal portion of the nail unremarkable. Psych Appearance: well kempt Procedures Orthopedic Splinting/Casting Injury #1: Side: right Upper Extremity Injury Location: finger Upper Extremity Immobilizer: aluminum form splint Post splinting neuro exam: no change Post splinting vascular exam: no change Placed by: Nursing Course Orders Ordered: ED Orders 02/25/20 20:56 XR finger RT min 2V Stat Vital Signs Vital signs: Vital Signs - 8 hr 02/25/20 20:47 Temperature 98.3 F Pulse Rate 85 Respiratory Rate 20 Blood Pressure 120/69 Pulse Oximetry 99 Medical Decision Making Imaging Data Extremity x-ray #1: Radiologist's Impression: [address] [id number] XRay Report Signed Patient: Andrzej Kirkland JMR#: [id number] : 1985Acct:[id number] Age/Sex: 34 / MDate of Service: 02/25/20 Loc: ED Accession Number: [id number] Procedure: XR finger RT min 2V Ordering Provider: Neo Galaviz D.O. PROCEDURE: XR FINGER RT MIN 2V INDICATIONS: caught in mower, blood and limited movement to distal TECHNIQUE: AP hand, 2 views of the second finger(s) acquired. COMPARISON: None. FINDINGS: Bones: No fractures or dislocations. The second digit appears intact. The there is a remote partially dictation of the third digit tuft. No suspicious bony lesions. Soft tissues: No suspicious soft tissue calcifications. No radiodense foreign bodies in the soft tissue. IMPRESSION: 1. Intact the second digit. 2. Probable remote partially dictation of the third digit tuft. Dictated by: Mica Chu M.D. on 02/25/2020 at 21:38 Approved by: Mica Chu M.D. on 02/25/2020 at 21:39 [facility] Narrative Medical decision making narrative: My read of the review graft shows what looks like a distal tuft fracture of the right index finger. Has a very distal subungual hematoma. I have low suspicion that there is a nail bed injury. Was placed in a aluminum splint for comfort. Discussed this with the patient. He expressed understanding and agreement with plan. Discharge Plan Departure Patient Disposition: Home Clinical Impression: Closed fracture of phalanx of index finger Qualifiers: Encounter type: initial encounter Phalanx: distal Fracture alignment: nondisplaced Laterality: right Qualified Code(s): S62.660A - Nondisplaced fracture of distal phalanx of right index finger, initial encounter for closed fracture Discharge Date/Time: 02/25/20 22:54 Instructions: How to Take Care of Your Splint Activity Restrictions/Additional Instructions: You can take the splint off to shower however I would keep it on for the majority of the time for the next 4 weeks. Contact your primary provider for follow-up. Return to the emergency department for any new or worsening symptoms Prescriptions: No Action ondansetron HCl [Zofran] 4 mg tablet 4 mg PO Q6H PRN (Reason: nausea and vomiting) Qty: 5 RF: 0 metoprolol tartrate 25 mg tablet 1 tab PO BID RF: 0 diphenhydramine-acetaminophen [[place]] 12.5-325 mg Tablet 1 tab PO PRN PRN (Reason: Headache) RF: 0 Unknown Night Medication 1 tab PO BEDTIME PRN (Reason: Migraine Headache) RF: 0 hydrocodone-acetaminophen [[place]] 5-325 mg tablet 1 tab PO Q4-6H PRN (Reason: pain) Qty: 10 RF: 0 cyclobenzaprine 10 mg tablet 10 mg PO TID PRN (Reason: muscle spasm) Qty: 12 RF: 0 hydrocodone-acetaminophen [[place]] 5-325 mg tablet 1 tab PO Q6H PRN (Reason: pain) Qty: 7 RF: 0 Stand Alone Forms: Work Release Note
--- NOTE | 2020-02-25 22:53 | PC.NURSE ---
aluminum splint and coban applied to finger.
== END 2020-02-25 22:54 | disposition home or self-care (01) ==
PROVIDERS: Emergency Provider Emergency Medicine
DX: S62.660A Nondisplaced fracture of distal phalanx of right index finger, initial encounter for closed fracture (principal)
CPT/HCPCS: 73140; 99283

== ENCOUNTER 2020-05-14 01:28 | Emergency (ER) | payer OTHER, MEDICAID, SELFPAY ==
[2020-05-14 01:30] VITALS: BP 153/95; PULSE 77; RESP 20; TEMP 36.6; O2SAT 98; BMI 30.4
--- NOTE | 2020-05-14 01:43 | ED.GENADULT ---
HPI - General Adult General Chief complaint: Headache Stated complaint: migraine/ has had body aches Time Seen by Provider: 05/14/20 01:41 Source: patient Mode of arrival: Ambulatory Limitations: no limitations History of Present Illness HPI narrative: Patient is a 34-year-old male with a history of migraines. Patient states that he has daily headaches and then his. The time when his headaches are worse than others. He does take medication for these. He has been taking his medication. He is here for evaluation of what he states is 1 of his typical migraines that has just progressed to the point where he felt like he needed to come into the emergency department. He has been in the emergency department in the past for similar symptoms and states that the IV medications he receives very often improves his headache. He denies any fevers. No trauma. Does have photophobia. States that loud noises also make his headache worse. Related Data Home Medications Medication Instructions Recorded Confirmed Unknown Night Medication 1 tab PO BEDTIME PRN 03/11/18 03/11/18 diphenhydramine-acetaminophen 1 tab PO PRN PRN 03/11/18 03/11/18 [Percogesic] metoprolol tartrate 1 tab PO BID 03/11/18 03/11/18 Previous Rx's Medication Instructions Recorded hydrocodone-acetaminophen [[place]] 1 tab PO Q4-6H PRN #10 tab 12/21/18 ondansetron HCl [Zofran] 4 mg PO Q6H PRN #5 tab 12/06/19 cyclobenzaprine 10 mg PO TID PRN #12 tab 12/10/19 hydrocodone-acetaminophen [[place]] 1 tab PO Q6H PRN #7 tab 12/10/19 Allergies Allergy/AdvReac Type Severity Reaction Status Date / Time amoxicillin Allergy Verified 12/20/18 23:04 Review of Systems Constitutional Constitutional: Denies fever(s) and Reports headache(s) Eyes Eyes: Reports blurry vision and Reports photophobia ENT Ears, Nose, Mouth, and Throat: Denies vertigo, Denies dizziness, Reports headache(s), Denies tinnitus, Denies sinus pain, Denies sinus pressure and Denies sore throat Cardiovascular Cardiovascular: Denies chest pain and Denies dyspnea Respiratory Respiratory: Denies dyspnea Gastrointestinal Gastrointestinal: Denies abdominal pain and Reports nausea Musculoskeletal Musculoskeletal: Denies arthralgias, Denies myalgias and Denies tingling Integumentary/Breasts Skin/Breast: Denies lesions and Denies rash Neurologic Neurologic: Denies behavioral changes, Denies confusion, Denies vertigo, Denies dizziness, Reports headache(s) and Denies tingling Psychiatric Psychiatric: Denies behavioral changes and Denies confusion Hematologic/Lymphatic Hematologic/Lymphatic: Denies easy bleeding and Denies easy bruising Patient History Medical History Chronic back pain (Chronic) Chronic daily headache (Chronic) History of multiple concussions (Chronic) Migraine headache (Chronic) Tendinitis (Chronic) Surgical History Hx of tympanostomy tubes (Resolved) Social History Smoking Status: Current every day smoker Tobacco: How many years used: 20 alcohol intake: current substance use type: marijuana Smoking Status: Current every day smoker alcohol intake frequency: 0-2 drinks per day Substance Use Type: marijuana Exam Initial Vital Signs Initial Vital Signs: Vital Signs Temperature 97.8 F 05/14/20 01:30 Pulse Rate 77 05/14/20 01:30 Respiratory Rate 20 05/14/20 01:30 Blood Pressure 153/95 H 05/14/20 01:30 Pulse Oximetry 98 05/14/20 01:30 Const General: cooperative Limitations: mental status not altered HENMT Head: normal to inspection and normocephalic Nose: external nose normal Face and sinus: normal facial exam Resp Effort & Inspection: normal respiratory effort Auscultation: clear to auscultation bilaterally Cardio Rate: regular rate Rhythm: regular rhythm Skin Lesions: no lesions Rashes: no rashes Neuro General: patient alert, patient awake and patient oriented x3 Cranial Nerves: CN's II-XI intact bilaterally Cognition: normal cognition Speech: speech normal Sensory Exam: no sensory deficits noted Extrem General: normal to inspection and capillary refill normal Psych Appearance: grossly normal and well kempt Scores GCS Abiodun coma scale eye opening: Spontaneous Abiodun coma scale verbal response: Orientated [place] coma scale motor response: Obey commands [place] coma scale total score: 15 Course Orders Ordered: Discontinued Medications Acetaminophen (Tylenol) 975 mg PO NOW ONE Stop: 05/14/20 01:48 Last Admin: 05/14/20 02:06 Dose: 975 mg Documented by: ARLENE Diphenhydramine HCl (Benadryl) 25 mg IV NOW ONE Stop: 05/14/20 01:48 Last Admin: 05/14/20 02:07 Dose: 25 mg Documented by: ARLENE Sodium Chloride (Normal Saline 0.9%) 1,000 mls @ 1,000 mls/hr IV BOLUS ONE Stop: 05/14/20 02:46 Last Infusion: 05/14/20 03:10 Dose: 0 mls/hr Documented by: Admin: 05/14/20 02:06 Dose: 1,000 mls/hr Documented by: ARLENE Ketorolac Tromethamine (Toradol) 30 mg IV NOW ONE Stop: 05/14/20 01:48 Last Admin: 05/14/20 02:09 Dose: 30 mg Documented by: ARLENE Metoclopramide HCl (Reglan) 10 mg IV NOW ONE Stop: 05/14/20 01:48 Last Admin: 05/14/20 02:10 Dose: 10 mg Documented by: ARLENE Vital Signs Vital signs: Vital Signs - 8 hr 05/14/20 01:30 05/14/20 03:03 Temperature 97.8 F Pulse Rate 77 92 H Respiratory Rate 20 16 Blood Pressure 153/95 H 122/78 Pulse Oximetry 98 99 Medical Decision Making MDM Narrative Medical decision making narrative: Patient reports improvement of his headache after the IV medications. He states that is improved from a 7/10 to a 4/10. He states that he feels like it is at the point where he can be discharged home. He is still having some photophobia but it is much improved. Low suspicion for TIA/CVA or subarachnoid hemorrhage. He states this feels like 1 of his typical migraines. Hold on radiologic studies for now. He is given return precautions and follow-up instructions. He expressed understanding and agreement. Discharge Plan Departure Patient Disposition: Home Clinical Impression: Migraine Qualifiers: Migraine type: unspecified Status migrainosus presence: without status migrainosus Intractability: not intractable Qualified Code(s): G43.909 - Migraine, unspecified, not intractable, without status migrainosus Discharge Date/Time: 05/14/20 03:11 Instructions: DI for Migraine Activity Restrictions/Additional Instructions: Continue all of your medications as directed. Contact your primary provider for follow-up. Return to the emergency department for any new or worsening symptoms Prescriptions: No Action ondansetron HCl [Zofran] 4 mg tablet 4 mg PO Q6H PRN (Reason: nausea and vomiting) Qty: 5 RF: 0 metoprolol tartrate 25 mg tablet 1 tab PO BID RF: 0 diphenhydramine-acetaminophen [Percogesic] 12.5-325 mg Tablet 1 tab PO PRN PRN (Reason: Headache) RF: 0 Unknown Night Medication 1 tab PO BEDTIME PRN (Reason: Migraine Headache) RF: 0 hydrocodone-acetaminophen [[place]] 5-325 mg tablet 1 tab PO Q4-6H PRN (Reason: pain) Qty: 10 RF: 0 cyclobenzaprine 10 mg tablet 10 mg PO TID PRN (Reason: muscle spasm) Qty: 12 RF: 0 hydrocodone-acetaminophen [[place]] 5-325 mg tablet 1 tab PO Q6H PRN (Reason: pain) Qty: 7 RF: 0
[2020-05-14] MEDS: SODIUM CHLORIDE 0.9% 1,000 ML 1000 ML IV (02:06)
[2020-05-14] MEDS: ACETAMINOPHEN 325 MG TABLET 975 MG PO (02:06)
[2020-05-14] MEDS: diphenhydrAMINE 50 MG/ML VIAL 25 MG IV (02:07)
[2020-05-14] MEDS: KETOROLAC 60 MG/2 ML VIAL 30 MG IV (02:09)
[2020-05-14] MEDS: METOCLOPRAMIDE 10 MG/2 ML INJ IV (02:10)
[2020-05-14 03:03] VITALS: BP 122/78; PULSE 92; RESP 16; O2SAT 99
== END 2020-05-14 03:11 | disposition home or self-care (01) ==
PROVIDERS: Emergency Provider Emergency Medicine
DX: G43.909 Migraine, unspecified, not intractable, without status migrainosus (principal)
CPT/HCPCS: 36415; 96361; 96374; 96375; 99284; J1200; J1885; J2765

== ENCOUNTER 2020-05-16 19:33 | Emergency (ER) | payer OTHER, MEDICAID, SELFPAY ==
[2020-05-16 19:44] VITALS: BP 139/100; PULSE 79; RESP 18; TEMP 36.2; O2SAT 99
[2020-05-16 20:30] VITALS: BP 148/93; PULSE 99; O2SAT 98
--- NOTE | 2020-05-16 20:34 | PC.NURSE ---
Patient states awoke with headache and left side posterior neck pain this morning. Reports headache as 2/10 and neckpain as 5/10/ States that neck pain is primary reason for visit to ED. Denies muscular injury and able to flex neck to chin. No abnormalities noted upon palpation and no visible wounds.
--- NOTE | 2020-05-16 21:13 | ED.HA ---
HPI - Headache General Chief Complaint: Headache Stated Complaint: migraine/ massive head ache, neck pain Time Seen by Provider: 05/16/20 21:13 Source: patient Mode of arrival: Ambulatory Limitations: no limitations History of Present Illness HPI Narrative: 34-year-old male here for evaluation of a headache on the right side of his head and also pain on the left side of back of his neck. He was seen here in this emergency department a couple days ago by myself for a migraine. Patient states that since that time his symptoms have improved somewhat however worsened recently. He states that the pain in his neck is not causing him to have headache. No fevers. Has not tried anything for symptoms prior to arrival Related Data Home Medications Medication Instructions Recorded Confirmed Unknown Night Medication 1 tab PO BEDTIME PRN 03/11/18 03/11/18 diphenhydramine-acetaminophen 1 tab PO PRN PRN 03/11/18 03/11/18 [Percogesic] metoprolol tartrate 1 tab PO BID 03/11/18 03/11/18 Previous Rx's Medication Instructions Recorded hydrocodone-acetaminophen [[place]] 1 tab PO Q4-6H PRN #10 tab 12/21/18 ondansetron HCl [Zofran] 4 mg PO Q6H PRN #5 tab 12/06/19 cyclobenzaprine 10 mg PO TID PRN #12 tab 12/10/19 hydrocodone-acetaminophen [[place]] 1 tab PO Q6H PRN #7 tab 12/10/19 Allergies Allergy/AdvReac Type Severity Reaction Status Date / Time amoxicillin Allergy Verified 05/16/20 19:50 Review of Systems Constitutional Constitutional: Denies fever(s) and Reports headache(s) ENT Ears, Nose, Mouth, and Throat: Reports headache(s) Cardiovascular Cardiovascular: Denies chest pain and Denies dyspnea Respiratory Respiratory: Denies dyspnea Gastrointestinal Gastrointestinal: Denies abdominal pain, Reports nausea and Denies vomiting Musculoskeletal Comments: Left neck pain Integumentary/Breasts Skin/Breast: Denies lesions and Denies rash Neurologic Neurologic: Reports headache(s) Hematologic/Lymphatic Hematologic/Lymphatic: Denies easy bleeding and Denies easy bruising Patient History Medical History Chronic back pain (Chronic) Chronic daily headache (Chronic) History of multiple concussions (Chronic) Migraine headache (Chronic) Tendinitis (Chronic) Surgical History Hx of tympanostomy tubes (Resolved) Social History Smoking Status: Current every day smoker Tobacco: How many years used: 20 alcohol intake: current substance use type: marijuana Smoking Status: Current every day smoker alcohol intake frequency: 0-2 drinks per day Substance Use Type: marijuana Exam Initial Vital Signs Initial Vital Signs: Vital Signs Temperature 97.1 F L 05/16/20 19:44 Pulse Rate 79 05/16/20 19:44 Respiratory Rate 18 05/16/20 19:44 Blood Pressure 139/100 H 05/16/20 19:44 Pulse Oximetry 99 05/16/20 19:44 Const General: cooperative and comfortable Limitations: mental status not altered HENMT Head: normal to inspection and normocephalic Eyes General: appearance normal, both eyes and all related structures Resp Effort & Inspection: normal respiratory effort Cardio Rate: regular rate Back/Spine/Pelvis Cervical Spine: cervical muscular tenderness, No cervical spinal tenderness and other (Pain left-sided paraspinal region) Skin Lesions: no lesions Rashes: no rashes Neuro General: patient alert and patient awake Cognition: normal cognition Speech: speech normal Extrem General: capillary refill normal Psych Appearance: grossly normal and well kempt Course Orders Ordered: Discontinued Medications Diphenhydramine HCl (Benadryl) 25 mg IV NOW ONE Stop: 05/16/20 21:53 Last Admin: 05/16/20 22:06 Dose: 25 mg Documented by: JINARTIN Sodium Chloride (Normal Saline 0.9%) 1,000 mls @ 1,000 mls/hr IV BOLUS ONE Stop: 05/16/20 22:51 Last Infusion: 05/16/20 23:35 Dose: 0 mls/hr Documented by: Admin: 05/16/20 22:03 Dose: 1,000 mls/hr Documented by: JINARTIN Ketorolac Tromethamine (Toradol) 30 mg IV NOW ONE Stop: 05/16/20 21:53 Last Admin: 05/16/20 22:04 Dose: 30 mg Documented by: JINARTIN Lidocaine HCl (Xylocaine 1% (Pf)) 2 ml INJ NOW ONE Stop: 05/16/20 21:23 Last Admin: 05/16/20 22:03 Dose: 2 ml Documented by: ARLENE Metoclopramide HCl (Reglan) 10 mg IV NOW ONE Stop: 05/16/20 21:53 Last Admin: 05/16/20 22:05 Dose: 10 mg Documented by: ARLENE Vital Signs Vital signs: Vital Signs - 8 hr 05/16/20 20:30 05/16/20 23:35 Pulse Rate 99 H 66 Respiratory Rate 16 Blood Pressure 148/93 H 121/66 Pulse Oximetry 98 98 MDM - Headache MDM Narrative Medical decision making narrative: Patient reports that his headache on the right side is head is just like his prior headaches. He does have an area of maximal tenderness on the left paraspinal region which I provided a trigger point injection with 2 cc of 1% lidocaine without epi. No fevers. Was treated for his headache. Upon re-evaluation patient states that his symptoms have almost completely resolved. Low suspicion for subarachnoid hemorrhage. Low suspicion for meningitis. Will discharge patient home. Is given follow-up instructions return precautions. He expressed understanding and agreement. Discharge Plan Departure Patient Disposition: Home Clinical Impression: Tension headache Migraine Qualifiers: Migraine type: unspecified Status migrainosus presence: without status migrainosus Intractability: not intractable Qualified Code(s): G43.909 - Migraine, unspecified, not intractable, without status migrainosus Discharge Date/Time: 05/16/20 23:45 Instructions: DI for Migraine Activity Restrictions/Additional Instructions: Continue all of your medications as directed. Contact your primary provider for follow-up. Return to the emergency department for any new or worsening symptoms Prescriptions: No Action ondansetron HCl [Zofran] 4 mg tablet 4 mg PO Q6H PRN (Reason: nausea and vomiting) Qty: 5 RF: 0 metoprolol tartrate 25 mg tablet 1 tab PO BID RF: 0 diphenhydramine-acetaminophen [Percogesic] 12.5-325 mg Tablet 1 tab PO PRN PRN (Reason: Headache) RF: 0 Unknown Night Medication 1 tab PO BEDTIME PRN (Reason: Migraine Headache) RF: 0 hydrocodone-acetaminophen [[place]] 5-325 mg tablet 1 tab PO Q4-6H PRN (Reason: pain) Qty: 10 RF: 0 cyclobenzaprine 10 mg tablet 10 mg PO TID PRN (Reason: muscle spasm) Qty: 12 RF: 0 hydrocodone-acetaminophen [[place]] 5-325 mg tablet 1 tab PO Q6H PRN (Reason: pain) Qty: 7 RF: 0
[2020-05-16] MEDS: LIDOCAINE 1% (PF) 2 ML INJ (22:03)
[2020-05-16] MEDS: SODIUM CHLORIDE 0.9% 1,000 ML 1000 ML IV (22:03)
[2020-05-16] MEDS: KETOROLAC 60 MG/2 ML VIAL 30 MG IV (22:04)
[2020-05-16] MEDS: METOCLOPRAMIDE 10 MG/2 ML INJ IV (22:05)
[2020-05-16] MEDS: diphenhydrAMINE 50 MG/ML VIAL 25 MG IV (22:06)
[2020-05-16 23:35] VITALS: BP 121/66; PULSE 66; RESP 16; O2SAT 98
== END 2020-05-16 23:45 | disposition home or self-care (01) ==
PROVIDERS: Emergency Provider Emergency Medicine
DX: G43.909 Migraine, unspecified, not intractable, without status migrainosus (principal)
CPT/HCPCS: 96361; 96374; 96375; 99283; 99284; J1200; J1885; J2765

== ENCOUNTER 2020-05-18 00:02 | Emergency (ER) | payer OTHER, MEDICAID, SELFPAY ==
[2020-05-18 00:09] VITALS: BP 156/74; PULSE 83; RESP 18; TEMP 36.9; O2SAT 95
--- NOTE | 2020-05-18 00:11 | PC.NURSE ---
Patient seen in ED yesterday for some problem. States awoke today approximately 3pm with headache and neck pain. Reports pain as 9/10 that worsens with movement of neck. Reports trying heat and ice at home which slightly helped. Patient affirms nausea, but denies vomiting.
--- NOTE | 2020-05-18 00:40 | ED.HA ---
HPI - Headache General Chief Complaint: Headache Stated Complaint: Pain back of head and migraine since Time Seen by Provider: 05/18/20 00:05 Source: patient and family Mode of arrival: Ambulatory Limitations: no limitations History of Present Illness HPI Narrative: 34-year-old male daily smoker with history of nonspecific headaches presents with his significant other and a chief complaint of ongoing headache and neck discomfort for the past few days. He has had 2 prior visits with complete resolution of symptoms earlier this week. He denies any fever or chills. He denies runny nose, sore throat or cough. He denies any blurred vision, trouble swallowing, chest pain or shortness of breath. He denies any recent injuries. He states that his headache started 1st and presented gradually and a settled into the anterior portion of his head. He states it is worse with bright lights, loud noises, which is similar to prior migraines. His neck pain started a day or 2 later and seems to be at the insertion point of the paraspinal muscles more on the left than other. He feels the most improvement with his chin to his chest. He does admit that he historically would drink a very large amount of caffeine every day and started cutting his caffeine intake in half just as this seems to have started. MD Complaint: headache and migraine Onset (ago): day(s) Onset description: gradual Location: frontal Severity: moderate Quality: aching and throbbing Relieving factors: dark room Exacerbating factors: light and noise Treatments prior to arrival: other Related Data Home Medications Medication Instructions Recorded Confirmed Unknown Night Medication 1 tab PO BEDTIME PRN 03/11/18 03/11/18 diphenhydramine-acetaminophen 1 tab PO PRN PRN 03/11/18 03/11/18 [Percogesic] metoprolol tartrate 1 tab PO BID 03/11/18 03/11/18 Previous Rx's Medication Instructions Recorded hydrocodone-acetaminophen [[place]] 1 tab PO Q4-6H PRN #10 tab 12/21/18 ondansetron HCl [Zofran] 4 mg PO Q6H PRN #5 tab 12/06/19 cyclobenzaprine 10 mg PO TID PRN #12 tab 12/10/19 hydrocodone-acetaminophen [[place]] 1 tab PO Q6H PRN #7 tab 12/10/19 Allergies Allergy/AdvReac Type Severity Reaction Status Date / Time amoxicillin Allergy Verified 05/16/20 19:50 Review of Systems Constitutional Constitutional: Denies chills, Denies fatigue, Denies fever(s), Denies frequent falls, Reports headache(s), Denies lethargy and Denies weakness Eyes Eyes: Denies change in vision, Denies eye discharge, Denies irritation and Denies loss of vision ENT Ears, Nose, Mouth, and Throat: Denies change in voice, Denies dizziness, Reports headache(s), Reports neck pain, Denies sore throat and Denies throat swelling Cardiovascular Cardiovascular: Denies chest pain, Denies irregular heart rhythm, Denies lightheadedness, Denies palpitations, Denies dyspnea, Denies dyspnea on exertion and Denies orthopnea Respiratory Respiratory: Denies cough, Denies dyspnea, Denies dyspnea on exertion and Denies wheezing Gastrointestinal Gastrointestinal: Denies abdominal pain, Denies change in bowel habits, Denies diarrhea, Denies nausea and Denies vomiting Musculoskeletal Musculoskeletal: Reports neck pain and Denies numbness Integumentary/Breasts Skin/Breast: Denies pruritus, Denies erythema, Denies rash and Denies wounds Neurologic Neurologic: Denies behavioral changes, Denies confusion, Denies dizziness, Denies frequent falls, Reports headache(s), Denies loss of vision, Denies numbness and Denies weakness Psychiatric Psychiatric: Denies anxiety, Denies behavioral changes, Denies confusion, Denies depression, Denies homicidal ideation and Denies suicidal ideation Endocrine Endocrine: Denies fatigue, Denies flushing and Denies palpitations Hematologic/Lymphatic Hematologic/Lymphatic: Denies easy bruising Allergic/Immunologic Allergic/Immunologic: Denies urticaria, Denies throat swelling and Denies wheezing Patient History Medical History Chronic back pain (Chronic) Chronic daily headache (Chronic) History of multiple concussions (Chronic) Migraine headache (Chronic) Tendinitis (Chronic) Surgical History Hx of tympanostomy tubes (Resolved) Social History Smoking Status: Current every day smoker Tobacco: How many years used: 20 alcohol intake: current substance use type: marijuana Smoking Status: Current every day smoker alcohol intake frequency: 0-2 drinks per day Substance Use Type: marijuana Exam Narrative Exam Narrative: GENERAL: [34] year old patient appears stated age. Well-nourished, well-developed patient, in mild distress. Sitting in a dark room HEAD: Atraumatic. Normocephalic. EYES: Pupils equal round and reactive. Extraocular motions intact. No scleral icterus. No injection or drainage. ENT: Nose without bleeding, purulent drainage. Throat without erythema, tonsillar hypertrophy or exudate. Airway patent. NECK: Trachea midline. No midline tenderness. Two palpable posterior lymph nodes noted. No meningeal signs such as Kernig's/Brudzinski's, no pain with ROM. No pain with axial loading. CARDIOVASCULAR: Regular rate and rhythm without murmurs, gallops, or rubs. RESPIRATORY: Clear to auscultation. Breath sounds equal bilaterally. No wheezes, rales, or rhonchi. GASTROINTESTINAL: Abdomen soft, non-tender, nondistended. EXTREMITIES: No edema or joint tenderness. BACK: Nontender without deformity or crepitance. No flank tenderness. NEURO: AOx3. SKIN: No rash or erythema of visible areas Initial Vital Signs Initial Vital Signs: Vital Signs Temperature 98.5 F 05/18/20 00:09 Pulse Rate 83 05/18/20 00:09 Respiratory Rate 18 05/18/20 00:09 Blood Pressure 156/74 H 05/18/20 00:09 Pulse Oximetry 95 05/18/20 00:09 Course Orders Ordered: ED Orders 05/18/20 01:02 CT head/brain wo con Stat Discontinued Medications Sodium Chloride (Normal Saline 0.9%) 1,000 mls @ 1,000 mls/hr IV BOLUS ONE Stop: 05/18/20 02:01 Last Admin: 05/18/20 01:53 Dose: 1,000 mls/hr Documented by: ARLENE Ketorolac Tromethamine (Toradol) 15 mg IV NOW ONE Stop: 05/18/20 01:03 Last Admin: 05/18/20 01:51 Dose: 15 mg Documented by: ARLENE Prochlorperazine (Compazine) 10 mg IV NOW ONE Stop: 05/18/20 01:03 Last Admin: 05/18/20 01:52 Dose: 10 mg Documented by: ARLENE Vital Signs Vital signs: Vital Signs - 8 hr 05/18/ 00:09 Temperature 98.5 F Pulse Rate 83 Respiratory Rate 18 Blood Pressure 156/74 H Pulse Oximetry 95 MDM - Headache Lab Data Labs: Point of Care Testing Rapid Strep A Negative Imaging Data CT scan - head: Radiologist's Impression: Negative for acute intracranial abnormality MDM Narrative Medical decision making narrative: Gradual onset headache without red flag findings. Head CT reassuring. No meningeal signs. Very low suspicion of meningitis or SAH. Patient had complete resolution of symptoms after above stated therapies. Patient given return precautions and questions answered to his apparent satisfaction. Discharge Plan Departure Patient Disposition: Home Clinical Impression: Migraine Qualifiers: Migraine type: unspecified Status migrainosus presence: without status migrainosus Intractability: not intractable Qualified Code(s): G43.909 - Migraine, unspecified, not intractable, without status migrainosus Instructions: DI for Migraine Activity Restrictions/Additional Instructions: *You have been diagnosed with [ migraine type headache. Low suspicion for critical cause such as bleeding or meningitis. Possible caffeine withdrawal effect] *What to do: *Take medications as directed *Follow up with your primary care provider in 2-3 days, call for an appointment. Let them know you were seen in the Emergency Department and that we ask that you be seen in follow up *Return to ER if you should have any new, worsening or concerning symptoms Prescriptions: No Action ondansetron HCl [Zofran] 4 mg tablet 4 mg PO Q6H PRN (Reason: nausea and vomiting) Qty: 5 RF: 0 metoprolol tartrate 25 mg tablet 1 tab PO BID RF: 0 diphenhydramine-acetaminophen [Percogesic] 12.5-325 mg Tablet 1 tab PO PRN PRN (Reason: Headache) RF: 0 Unknown Night Medication 1 tab PO BEDTIME PRN (Reason: Migraine Headache) RF: 0 hydrocodone-acetaminophen [[place]] 5-325 mg tablet 1 tab PO Q4-6H PRN (Reason: pain) Qty: 10 RF: 0 cyclobenzaprine 10 mg tablet 10 mg PO TID PRN (Reason: muscle spasm) Qty: 12 RF: 0 hydrocodone-acetaminophen [[place]] 5-325 mg tablet 1 tab PO Q6H PRN (Reason: pain) Qty: 7 RF: 0 Referrals: [facility] [Outside]
--- NOTE | 2020-05-18 01:02 | DI.CT.S_ITS ---
PROCEDURE: CT HEAD/BRAIN WO CON INDICATIONS: severe headache, 3 visits TECHNIQUE: Noncontrast 4.5 mm thick angled axial sections acquired from the foramen magnum to the vertex, with coronal and sagittal reformats. For radiation dose reduction, the following was used: automated exposure control, adjustment of mA and/or kV according to patient size. COMPARISON: None. FINDINGS: Image quality: Excellent. CSF spaces: Basal cisterns are patent. No extra-axial fluid collections. Ventricles are normal in size and shape. Brain: No midline shift. No intracranial masses or hemorrhage. Bay-white matter interface is normal. Skull and face: Calvarium and visualized facial bones are intact, without suspicious lesions. Sinuses: There is a mucous retention cyst seen involving the left maxillary sinus. Visualized sinuses and mastoids otherwise appear clear. IMPRESSION: Negative study, without acute hemorrhage or other cause of headache observed. Left maxillary sinus mucous retention cyst incidentally noted. Note: No significant discrepancy from the preliminary report. Dictated by: Murali Cervantes M.D. on 05/18/2020 at 9:41 Approved by: Murali Cervantes M.D. on 05/18/2020 at 9:42
[2020-05-18] MEDS: KETOROLAC 60 MG/2 ML VIAL 15 MG IV (01:51)
[2020-05-18] MEDS: PROCHLORPERAZINE 10 MG/2 ML VIAL IV (01:52)
[2020-05-18] MEDS: SODIUM CHLORIDE 0.9% 1,000 ML 1000 ML IV (01:53)
[2020-05-18 02:00] VITALS: BP 149/76; PULSE 74; RESP 16; O2SAT 97
== END 2020-05-18 02:27 | disposition home or self-care (01) ==
PROVIDERS: Emergency Provider Emergency Medicine
DX: G43.909 Migraine, unspecified, not intractable, without status migrainosus (principal); M54.2 Cervicalgia
CPT/HCPCS: 36415; 70450; 87880; 96361; 96374; 96375; 99284; J0780; J1885

== ENCOUNTER 2020-09-09 09:39 | Emergency (ER) | payer OTHER, MEDICAID, SELFPAY ==
[2020-09-09] VITALS (8 sets, daily range): BP systolic 111–143; BP diastolic 56–84; PULSE 61–92; RESP 20; TEMP 36.3; O2SAT 96–99; BMI 33.0
[2020-09-09 10:31] LABS: Add Manual Diff / Slide Review NO; Basophils Absolute Auto 100 /uL (0-100); Basophils Percent Auto 1.3 % (0-2); Eosinophils Absolute Auto 800 /uL (0-450); Eosinophils Percent Auto 8.1 % (2-4); Hematocrit 48.2 % (41-53); Hemoglobin 16.9 g/dL (13.5-17.5); Lymphocytes Absolute Auto 2100 /uL (1100-4500); Lymphocytes Percent Auto 20.4 % (25-40); Mean Corpuscular HGB Conc 35.1 % (30-36); Mean Corpuscular Hemoglobin 31.3 PG (26-34); Mean Corpuscular Volume 89.1 fL (80-100); Monocytes Absolute Auto 500 /uL (0-900); Monocytes Percent Auto 5.1 % (3-14); Neutrophils Absolute Auto 6600 /uL (1500-7000); Neutrophils Percent Auto 65.1 % (50-75); Platelet Count 260 X10^3/uL (150-400); Red Blood Cell Count 5.41 X10^6/uL (4.5-5.9); Red Cell Distribution Width 13.2 % (11.6-14.8); White Blood Cell Count 10.1 X10^3/uL (4.5-11.0)
[2020-09-09 10:36] LABS: Prothrombin Time 11.6 SECONDS (10.1-12.7)
[2020-09-09 10:39] LABS: PTT Partial Thromboplastin Tim 27 SECONDS (26.4-36.2)
[2020-09-09 10:44] LABS: Alanine Aminotransferase 43 IU/L (<50); Albumin 4.6 g/dL (3.5-5.0); Albumin Globulin Ratio 1.5 (1.0-2.8); Alkaline Phosphatase 44 U/L (38-126); Aspartate Aminotransferase 40 IU/L (17-59); BUN Creatinine Ratio 16.3 (6-22); Bilirubin Total 0.4 mg/dL (0.2-1.3); Blood Urea Nitrogen 14 mg/dL (9-20); Calcium 9.1 mg/dL (8.4-10.2); Carbon Dioxide 24 mmol/L (22-32); Chloride 107 mmol/L (98-107); Estimated Glomerular Filt Rate > 60.0 mL/min (>60); Globulin 3.1 g/dL (1.7-4.1); Glucose 97 mg/dL (70-100); HEMOLYSIS < 15 (0-50); Lipase 56 U/L (23-300); Potassium 3.9 mmol/L (3.4-5.1); Sodium 139 mmol/L (137-145); Total Protein 7.7 g/dL (6.3-8.2)
--- NOTE | 2020-09-09 13:04 | ED.ABDPAIN ---
HPI - Abdominal Pain <DANAE Pulido - Last Filed: 09/09/20 16:48> General Chief Complaint: Abdominal Pain Stated Complaint: vomiting,sharp pain in left side,pain in back Time Seen by Provider: 09/09/20 12:31 Source: patient Mode of arrival: Ambulatory Limitations: no limitations History of Present Illness HPI narrative: The patient is a 35-year-old male Current smoker with history of lower abdominal pain. He states he has not had any severe fevers, muscle aches or chills. He has had 2 episodes of vomiting, states that he feels metallic taste in his mouth, does not have any nausea associated. Notes that he has had slightly loose stools over the past few days. Denies any significant GI history, or abdominal surgeries. Has not taken anything to feel better. States that he occasionally takes Tylenol, CBD oil or THC for the pain. He states that his pain has been going on for few days. States it is worse with motion and pressure. Related Data Home Medications Medication Instructions Recorded Confirmed Unknown Night Medication 1 tab PO BEDTIME PRN 03/11/18 03/11/18 diphenhydramine-acetaminophen 1 tab PO PRN PRN 03/11/18 03/11/18 [Percogesic] metoprolol tartrate 1 tab PO BID 03/11/18 03/11/18 Previous Rx's Medication Instructions Recorded hydrocodone-acetaminophen [Callaway] 1 tab PO Q4-6H PRN #10 tab 12/21/18 ondansetron HCl [Zofran] 4 mg PO Q6H PRN #5 tab 12/06/19 cyclobenzaprine 10 mg PO TID PRN #12 tab 12/10/19 hydrocodone-acetaminophen [Callaway] 1 tab PO Q6H PRN #7 tab 12/10/19 ondansetron 4 mg PO Q6H PRN #20 tab 09/09/20 prednisone 40 mg PO DAILY 5 Days #10 tab 09/09/20 Allergies Allergy/AdvReac Type Severity Reaction Status Date / Time amoxicillin Allergy Verified 05/16/20 19:50 Review of Systems <DANAE Pulido - Last Filed: 09/09/20 16:48> Review of Systems Narrative: GENERAL: Denies chills, fatigue, malaise, fever, sweats. HEENT: Denies sinus pain, ear pain, sore throat, difficulty swallowing, dizziness. RESPIRATORY: Denies dyspnea, cough, wheezing, hemoptysis, sputum. CARDIOVASCULAR: Denies chest pain, palpitations, orthopnea, edema, GASTROINTESTINAL: See HPI : Denies dysuria, frequency, incontinence, hematuria, urinary retention. MUSCULOSKELETAL: denies weakness, joint pain, or bony pain SKIN: Denies rash, skin lesions, or other NEUROLOGIC: Denies weakness, headache, numbness, change in speech, confusion, seizures, incoordination. PSYCHIATRIC: No concerning psychosocial issues. 12 point review of systems is negative except for those stated above Patient History <DANAE Pulido - Last Filed: 09/09/20 16:48> Medical History Chronic back pain Chronic daily headache History of multiple concussions Migraine headache Tendinitis Surgical History Hx of tympanostomy tubes Social History Smoking Status: Current every day smoker Tobacco: How many years used: 20 alcohol intake: current substance use type: marijuana Smoking Status: Current every day smoker alcohol intake frequency: 0-2 drinks per day Substance Use Type: marijuana Exam <DANAE Pulido - Last Filed: 09/09/20 16:48> Narrative Exam Narrative: GENERAL: This is a well-nourished, well-developed patient, in no acute distress HEAD: Atraumatic. Normocephalic. No temporal or scalp tenderness. EYES: Pupils equal round and reactive. Extraocular motions intact. No scleral icterus. No injection or drainage. ENT: Nose without bleeding, purulent drainage or septal hematoma. Throat without erythema, tonsillar hypertrophy or exudate. Uvula midline. Airway patent. Moist mucous membranes noted. NECK: Trachea midline. No JVD or lymphadenopathy. Supple, nontender, no meningeal signs. CARDIOVASCULAR: Regular rate and rhythm RESPIRATORY: Clear to auscultation. Breath sounds equal bilaterally. No wheezes, rales, or rhonchi. No cough. No increased respiratory effort. No accessory muscle use. GASTROINTESTINAL: Abdomen soft, diffuse tenderness to left lower quadrant palpation with slight guarding, nondistended. No hepato-splenomegaly, or palpable masses. Active bowel sounds all 4 quadrants EXTREMITIES: No clubbing, cyanosis, or edema. No joint tenderness, effusion, or edema noted. BACK: Nontender without deformity or crepitance. No flank tenderness. NEURO: AOx3. SKIN: No rash or erythema on visible skin Initial Vital Signs Initial Vital Signs: Vital Signs Temperature 97.4 F L 09/09/20 09:45 Pulse Rate 79 09/09/20 09:45 Respiratory Rate 09/09/20 09:45 Blood Pressure 138/84 09/09/20 09:45 Pulse Oximetry 99 09/09/20 09:45 <Dianna Kennedy MD - Last Filed: 09/10/20 07:32> Initial Vital Signs Initial Vital Signs: Vital Signs Temperature 97.4 F L 09/09/20 09:45 Pulse Rate 79 09/09/20 09:45 Respiratory Rate 09/09/20 09:45 Blood Pressure 138/84 09/09/20 09:45 Pulse Oximetry 99 09/09/20 09:45 Scores <DANAE Pulido - Last Filed: 09/09/20 16:48> GCS Abiodun coma scale eye opening: Spontaneous Abiodun coma scale verbal response: Orientated Abiodun coma scale motor response: Obey commands [place] coma scale total score: 15 Course <DANAE Pulido - Last Filed: 09/09/20 16:48> Orders Ordered: Discontinued Medications Sodium Chloride (Normal Saline 0.9%) 1,000 mls @ 1,000 mls/hr IV BOLUS ONE Stop: 09/09/20 13:53 Last Infusion: 09/09/20 14:35 Dose: 0 mls/hr Documented by: Admin: 09/09/20 13:21 Dose: 1,000 mls/hr Documented by: BARBARA Ondansetron HCl (Ondansetron 4 Mg/2 Ml Inj) 4 mg IV NOW ONE Stop: 09/09/20 12:55 Last Admin: 09/09/20 13:21 Dose: 4 mg Documented by: BARBARA Vital Signs Vital signs: Vital Signs - 8 hr 09/09/20 09:45 09/09/20 12:33 09/09/20 13:00 Temperature 97.4 F L Pulse Rate 79 75 92 H Respiratory Rate 20 Blood Pressure 138/84 143/65 H Pulse Oximetry 99 98 96 09/09/20 13:01 09/09/20 13:36 09/09/20 13:37 Temperature Pulse Rate 78 82 74 Respiratory Rate Blood Pressure 131/67 121/64 Pulse Oximetry 97 97 99 09/09/20 14:00 09/09/20 14:30 Temperature Pulse Rate 84 61 Respiratory Rate Blood Pressure 115/64 111/56 L Pulse Oximetry 99 97 <Dianna Kennedy MD - Last Filed: 09/10/20 07:32> Orders Ordered: Discontinued Medications Sodium Chloride (Normal Saline 0.9%) 1,000 mls @ 1,000 mls/hr IV BOLUS ONE Stop: 09/09/20 13:53 Last Infusion: 09/09/20 14:35 Dose: 0 mls/hr Documented by: Admin: 09/09/20 13:21 Dose: 1,000 mls/hr Documented by: BARBARA Ondansetron HCl (Ondansetron 4 Mg/2 Ml Inj) 4 mg IV NOW ONE Stop: 09/09/20 12:55 Last Admin: 09/09/20 13:21 Dose: 4 mg Documented by: BARBARA Vital Signs Vital signs: Vital Signs - 8 hr 09/09/20 09:45 09/09/20 12:33 09/09/20 13:00 Temperature 97.4 F L Pulse Rate 79 75 92 H Respiratory Rate 20 Blood Pressure 138/84 143/65 H Pulse Oximetry 99 98 96 09/09/20 13:01 09/09/20 13:36 09/09/20 13:37 Temperature Pulse Rate 78 82 74 Respiratory Rate Blood Pressure 131/67 121/64 Pulse Oximetry 97 97 99 09/09/20 14:00 09/09/20 14:30 Temperature Pulse Rate 84 61 Respiratory Rate Blood Pressure 115/64 111/56 L Pulse Oximetry 99 97 MDM - Abdominal Pain <DANAE Pulido - Last Filed: 09/09/20 16:48> Lab Data Attestation: I reviewed the patient's lab results. Result diagrams: 09/09/20 10:16 09/09/20 10:16 Labs: Lab Results 09/09/20 09/09/20 09/09/20 Range/Units 10:16 10:16 10:16 WBC 10.1 (4.5-11.0) X10^3/uL RBC 5.41 (4.5-5.9) X10^6/uL Hgb 16.9 (13.5-17.5) g/dL Hct 48.2 (41-53) % MCV 89.1 (80-100) fL MCH 31.3 (26-34) PG MCHC 35.1 (30-36) % RDW 13.2 (11.6-14.8) % Plt Count 260 (150-400) X10^3/uL Neut % (Auto) 65.1 (50-75) % Lymph % (Auto) 20.4 L (25-40) % [place] % (Auto) 5.1 (3-14) % Eos % (Auto) 8.1 H (2-4) % Baso % (Auto) 1.3 (0-2) % Neut # (Auto) 6600 (8888-7993) /uL Lymph # (Auto) 2100 (2664-6536) /uL [place] # (Auto) 500 (0-900) /uL Eos # (Auto) 800 H (0-450) /uL Baso # (Auto) 100 (0-100) /uL PT 11.6 (10.1-12.7) SECONDS INR 1.0 (0.9-1.3) APTT 27 (26.4-36.2) SECONDS Sodium 139 (137-145) mmol/L Potassium 3.9 (3.4-5.1) mmol/L Chloride 107 (98-107) mmol/L Carbon Dioxide 24 (22-32) mmol/L BUN 14 (9-20) mg/dL Creatinine 0.86 (0.66-1.25) mg/dL Estimated GFR > 60.0 (>60) mL/min BUN/Creatinine Ratio 16.3 (6-22) Glucose 97 (70-100) mg/dL Calcium 9.1 (8.4-10.2) mg/dL Total Bilirubin 0.4 (0.2-1.3) mg/dL AST 40 (17-59) IU/L ALT 43 (<50) IU/L Alkaline Phosphatase 44 (38-126) U/L Total Protein 7.7 (6.3-8.2) g/dL Albumin 4.6 (3.5-5.0) g/dL Globulin 3.1 (1.7-4.1) g/dL Albumin/Globulin Ratio 1.5 (1.0-2.8) Lipase 56 (23-300) U/L COVID-19 PCR (Negative) 09/09/20 Range/Units 14:30 WBC (4.5-11.0) X10^3/uL RBC (4.5-5.9) X10^6/uL Hgb (13.5-17.5) g/dL Hct (41-53) % MCV (80-100) fL MCH (26-34) PG MCHC (30-36) % RDW (11.6-14.8) % Plt Count (150-400) X10^3/uL Neut % (Auto) (50-75) % Lymph % (Auto) (25-40) % [place] % (Auto) (3-14) % Eos % (Auto) (2-4) % Baso % (Auto) (0-2) % Neut # (Auto) (9693-6051) /uL Lymph # (Auto) (8689-0950) /uL [place] # (Auto) (0-900) /uL Eos # (Auto) (0-450) /uL Baso # (Auto) (0-100) /uL PT (10.1-12.7) SECONDS INR (0.9-1.3) APTT (26.4-36.2) SECONDS Sodium (137-145) mmol/L Potassium (3.4-5.1) mmol/L Chloride (98-107) mmol/L Carbon Dioxide (22-32) mmol/L BUN (9-20) mg/dL Creatinine (0.66-1.25) mg/dL Estimated GFR (>60) mL/min BUN/Creatinine Ratio (6-22) Glucose (70-100) mg/dL Calcium (8.4-10.2) mg/dL Total Bilirubin (0.2-1.3) mg/dL AST (17-59) IU/L ALT (<50) IU/L Alkaline Phosphatase (38-126) U/L Total Protein (6.3-8.2) g/dL Albumin (3.5-5.0) g/dL Globulin (1.7-4.1) g/dL Albumin/Globulin Ratio (1.0-2.8) Lipase (23-300) U/L COVID-19 PCR Negative (Negative) Point of care testing: Urine Dip Bedside Urine Glucose Negative Bedside Urine Bilirubin - Negative Bedside Urine Ketone - Negative Urine Specific [place] 1.015 Bedside Urine Occult Blood - Negative Bedside Urine pH 7.5 Bedside Urine Protein - Negative Bedside Urine Urobilinogen - Negative Bedside Urine Nitrite - Negative Bedside Urine Leukocytes - Negative Esterase Imaging Data CT scan - abdomen/pelvis: Radiologist's Impression: [address] [place] [id number] Scan ReportSigned Patient: Andrzej Kirkland JMR#: [id number]: [id number]:[id number]/Sex: 35 / MDate of Service: 09/09/20Loc: EDAccession Number: [id number] Procedure: CT abdomen pelvis w con Ordering Provider: Tonie Choi [employer] OPERATOR- PROCEDURE: CT ABDOMEN PELVIS W CON INDICATIONS: LLQ pain, vomiting, stool changes TECHNIQUE: After the administration of intravenous contrast, 5 mm thick sections acquired from the diaphragm to the symphysis. 5 mm coronal and sagittal reformats were acquired. For radiation dose reduction, the following was used: automated exposure control, adjustment of mA and/or kV according to patient size. COMPARISON: None. FINDINGS: Image quality: Excellent. ABDOMEN: Lung bases: Lung bases are clear. Heart size is normal. There is a small hiatal hernia. Solid organs: Liver is normal in size and enhancement. Gallbladder is normal . Biliary system is non dilated. Pancreas enhances normally. Spleen is normal in size and enhancement. No adrenal nodules. Kidneys demonstrate normal size and enhancement, without hydronephrosis. There is a cortical scar in the superior pole of the right kidney. Peritoneum and bowel: There is diffuse colonic wall thickening involving the splenic flexure, descending and sigmoid colon, as well as rectum consistent with colitis. The appendix is normal in caliber without stranding. Multiple appendicoliths are noted in the tip of the appendix. Bowel loops demonstrate normal wall thickness and caliber. No free fluid or air. Nodes and vessels: No retroperitoneal or mesenteric adenopathy by size criteria. Aorta and inferior vena cava are normal in size. Miscellaneous: No ventral hernias. PELVIS: Genitourinary: Bladder wall thickness is normal. Miscellaneous: No inguinal adenopathy. Small fat containing inguinal hernia. Bones: No suspicious bony lesions. No vertebral body compression fractures. IMPRESSION: 1. Diffuse colonic wall thickening involving the splenic flexure, descending, sigmoid colon and rectum, consistent with colitis. Differential diagnosis include infectious colitis versus inflammatory bowel disease, such as ulcerative colitis. Dictated by: Shimon Rapp M.D. on 09/09/2020 at 13:26 Approved by: Shimon Rapp M.D. on 09/09/2020 at 13:33 MDM Narrative Medical decision making narrative: The patient is a 35-year-old male who presents with a chief complaint of left lower quadrant pain. Given his exam, CT was obtained which illustrated colitis of infectious versus inflammatory etiology. Given that the patient has no fevers, no leukocytosis, normal vital signs will treat for inflammatory colitis at this point time with prednisone. Zofran given in patient felt much better. He declines any pain medications in the ER. Is able to tolerate p.o. food and fluids prior to discharge. I discussed at length the importance of follow-up with primary care provider in the next few days as well as coming back to the ER for acute concerns such as abdominal pain with fever, inability keep down fluids etcetera patient has no questions or concerns upon discharge and states understanding return precautions as well as follow-up care. <Dianna Kennedy MD - Last Filed: 09/10/20 07:32> Lab Data Labs: Lab Results 09/09/20 09/09/20 09/09/20 Range/Units 10:16 10:16 10:16 WBC 10.1 (4.5-11.0) X10^3/uL RBC 5.41 (4.5-5.9) X10^6/uL Hgb 16.9 (13.5-17.5) g/dL Hct 48.2 (41-53) % MCV 89.1 (80-100) fL MCH 31.3 (26-34) PG MCHC 35.1 (30-36) % RDW 13.2 (11.6-14.8) % Plt Count 260 (150-400) X10^3/uL Neut % (Auto) 65.1 (50-75) % Lymph % (Auto) 20.4 L (25-40) % [place] % (Auto) 5.1 (3-14) % Eos % (Auto) 8.1 H (2-4) % Baso % (Auto) 1.3 (0-2) % Neut # (Auto) 6600 (4848-2702) /uL Lymph # (Auto) 2100 (6725-0685) /uL [place] # (Auto) 500 (0-900) /uL Eos # (Auto) 800 H (0-450) /uL Baso # (Auto) 100 (0-100) /uL PT 11.6 (10.1-12.7) SECONDS INR 1.0 (0.9-1.3) APTT 27 (26.4-36.2) SECONDS Sodium 139 (137-145) mmol/L Potassium 3.9 (3.4-5.1) mmol/L Chloride 107 (98-107) mmol/L Carbon Dioxide 24 (22-32) mmol/L BUN 14 (9-20) mg/dL Creatinine 0.86 (0.66-1.25) mg/dL Estimated GFR > 60.0 (>60) mL/min BUN/Creatinine Ratio 16.3 (6-22) Glucose 97 (70-100) mg/dL Calcium 9.1 (8.4-10.2) mg/dL Total Bilirubin 0.4 (0.2-1.3) mg/dL AST 40 (17-59) IU/L ALT 43 (<50) IU/L Alkaline Phosphatase 44 (38-126) U/L Total Protein 7.7 (6.3-8.2) g/dL Albumin 4.6 (3.5-5.0) g/dL Globulin 3.1 (1.7-4.1) g/dL Albumin/Globulin Ratio 1.5 (1.0-2.8) Lipase 56 (23-300) U/L COVID-19 PCR (Negative) 09/09/20 Range/Units 14:30 WBC (4.5-11.0) X10^3/uL RBC (4.5-5.9) X10^6/uL Hgb (13.5-17.5) g/dL Hct (41-53) % MCV (80-100) fL MCH (26-34) PG MCHC (30-36) % RDW (11.6-14.8) % Plt Count (150-400) X10^3/uL Neut % (Auto) (50-75) % Lymph % (Auto) (25-40) % [place] % (Auto) (3-14) % Eos % (Auto) (2-4) % Baso % (Auto) (0-2) % Neut # (Auto) (2825-6490) /uL Lymph # (Auto) (9957-6972) /uL [place] # (Auto) (0-900) /uL Eos # (Auto) (0-450) /uL Baso # (Auto) (0-100) /uL PT (10.1-12.7) SECONDS INR (0.9-1.3) APTT (26.4-36.2) SECONDS Sodium (137-145) mmol/L Potassium (3.4-5.1) mmol/L Chloride (98-107) mmol/L Carbon Dioxide (22-32) mmol/L BUN (9-20) mg/dL Creatinine (0.66-1.25) mg/dL Estimated GFR (>60) mL/min BUN/Creatinine Ratio (6-22) Glucose (70-100) mg/dL Calcium (8.4-10.2) mg/dL Total Bilirubin (0.2-1.3) mg/dL AST (17-59) IU/L ALT (<50) IU/L Alkaline Phosphatase (38-126) U/L Total Protein (6.3-8.2) g/dL Albumin (3.5-5.0) g/dL Globulin (1.7-4.1) g/dL Albumin/Globulin Ratio (1.0-2.8) Lipase (23-300) U/L COVID-19 PCR Negative (Negative) Point of care testing: Urine Dip Bedside Urine Glucose Negative Bedside Urine Bilirubin - Negative Bedside Urine Ketone - Negative Urine Specific [place] 1.015 Bedside Urine Occult Blood - Negative Bedside Urine pH 7.5 Bedside Urine Protein - Negative Bedside Urine Urobilinogen - Negative Bedside Urine Nitrite - Negative Bedside Urine Leukocytes - Negative Esterase Discharge Plan Departure Patient Disposition: Home Clinical Impression: Colitis Instructions: DI for Colitis Activity Restrictions/Additional Instructions: Thank you for trusting us with your care today Today you tested negative for coronavirus As discussed, your CT is concerning for colitis. We are treating this as inflammatory colitis given that you do not have any fever, no elevated white blood cell count. I sent 2 prescriptions to [facility] in [place]. This includes prednisone, which is a steroid to decrease inflammation as well as ondansetron for nausea Please follow-up with primary care provider in the next 48-72 hours. Please remember as we discussed, this could also be infectious cause. Please monitor for high fevers etcetera and come back to the emergency department for any acute concerns. I have given you a work note for several days off work Prescriptions: New prednisone 20 mg tablet 40 mg PO DAILY 5 Days Qty: 10 RF: 0 ondansetron 4 mg tablet,disintegrating 4 mg PO Q6H PRN (Reason: nausea and vomiting) Qty: 20 RF: 0 No Action ondansetron HCl [Zofran] 4 mg tablet 4 mg PO Q6H PRN (Reason: nausea and vomiting) Qty: 5 RF: 0 metoprolol tartrate 25 mg tablet 1 tab PO BID RF: 0 diphenhydramine-acetaminophen [Percogesic] 12.5-325 mg Tablet 1 tab PO PRN PRN (Reason: Headache) RF: 0 Unknown Night Medication 1 tab PO BEDTIME PRN (Reason: Migraine Headache) RF: 0 hydrocodone-acetaminophen [Callaway] 5-325 mg tablet 1 tab PO Q4-6H PRN (Reason: pain) Qty: 10 RF: 0 cyclobenzaprine 10 mg tablet 10 mg PO TID PRN (Reason: muscle spasm) Qty: 12 RF: 0 hydrocodone-acetaminophen [Callaway] 5-325 mg tablet 1 tab PO Q6H PRN (Reason: pain) Qty: 7 RF: 0 Referrals: Sylvia Huynh MD [Primary Care Provider] - Stand Alone Forms: Work Release Note <Dianna Kennedy MD - Last Filed: 09/10/20 07:32> [facility] Khurramature Attestation: I was immediately available in the department for consultation throughout this patient's visit. I agree with documentation as above. Dianna Kennedy MD
[2020-09-09] MEDS: ONDANSETRON 4 MG/2 ML INJ IV (13:21)
[2020-09-09] MEDS: SODIUM CHLORIDE 0.9% 1,000 ML 1000 ML IV (13:21)
--- NOTE | 2020-09-09 13:35 | DI.CT.S_ITS ---
PROCEDURE: CT ABDOMEN PELVIS W CON INDICATIONS: LLQ pain, vomiting, stool changes TECHNIQUE: After the administration of intravenous contrast, 5 mm thick sections acquired from the diaphragm to the symphysis. 5 mm coronal and sagittal reformats were acquired. For radiation dose reduction, the following was used: automated exposure control, adjustment of mA and/or kV according to patient size. COMPARISON: None. FINDINGS: Image quality: Excellent. ABDOMEN: Lung bases: Lung bases are clear. Heart size is normal. There is a small hiatal hernia. Solid organs: Liver is normal in size and enhancement. Gallbladder is normal . Biliary system is non dilated. Pancreas enhances normally. Spleen is normal in size and enhancement. No adrenal nodules. Kidneys demonstrate normal size and enhancement, without hydronephrosis. There is a cortical scar in the superior pole of the right kidney. Peritoneum and bowel: There is diffuse colonic wall thickening involving the splenic flexure, descending and sigmoid colon, as well as rectum consistent with colitis. The appendix is normal in caliber without stranding. Multiple appendicoliths are noted in the tip of the appendix. Bowel loops demonstrate normal wall thickness and caliber. No free fluid or air. Nodes and vessels: No retroperitoneal or mesenteric adenopathy by size criteria. Aorta and inferior vena cava are normal in size. Miscellaneous: No ventral hernias. PELVIS: Genitourinary: Bladder wall thickness is normal. Miscellaneous: No inguinal adenopathy. Small fat containing inguinal hernia. Bones: No suspicious bony lesions. No vertebral body compression fractures. IMPRESSION: 1. Diffuse colonic wall thickening involving the splenic flexure, descending, sigmoid colon and rectum, consistent with colitis. Differential diagnosis include infectious colitis versus inflammatory bowel disease, such as ulcerative colitis. Dictated by: Shimon Rapp M.D. on 09/09/2020 at 13:26 Approved by: Shimon Rapp M.D. on 09/09/2020 at 13:33
[2020-09-09 14:52] LABS: COVID19 -Nasal RAPID Negative (Negative)
== END 2020-09-09 15:38 | disposition home or self-care (01) ==
PROVIDERS: Emergency Medicine; Emergency Provider Nurse Practitioner Family; PCP Family Medicine
DX: K52.9 Noninfective gastroenteritis and colitis, unspecified (principal); R11.10 Vomiting, unspecified
CPT/HCPCS: 36415; 74177; 80053; 81003; 83690; 85025; 85610; 85730; 87635; 96361; 96374; 99283; 99284; J2405; Q9967

== ENCOUNTER 2020-10-29 23:00 | Emergency (ER) | payer OTHER, MEDICAID, SELFPAY ==
[2020-10-29 23:10] VITALS: BP 139/79; PULSE 84; RESP 22; TEMP 36.4; O2SAT 98
--- NOTE | 2020-10-30 00:06 | ED_ITS ---
HPI - Dental/Oral General Chief complaint: Dental/Oral Stated complaint: tooth and jaw pain Time Seen by Provider: 10/29/20 23:59 Source: patient Mode of arrival: Ambulatory History of Present Illness HPI Narrative: Patient complains 1-2 weeks of pain to the teeth 4. Number 31 number 32. Patient does smoke. Seen by his primary care at [facility], prescribed clindamycin. No pain medication. Has appointment with dentist for extraction on November 14 in November 19 this month. No drooling. No trouble breathing. No facial swelling no fever. Patient here with . Has a delivery truck driver. Patient provided forms from his [facility] office visit for same complaint and is noted to have follow-up later this month with dentist for extraction Related Data Home Medications Medication Instructions Recorded Confirmed Unknown Night Medication 1 tab PO BEDTIME PRN 03/11/18 03/11/18 diphenhydramine-acetaminophen 1 tab PO PRN PRN 03/11/18 03/11/18 [Percogesic] metoprolol tartrate 1 tab PO BID 03/11/18 03/11/18 Previous Rx's Medication Instructions Recorded hydrocodone-acetaminophen [Garvin] 1 tab PO Q4-6H PRN #10 tab 12/21/18 ondansetron HCl [Zofran] 4 mg PO Q6H PRN #5 tab 12/06/19 cyclobenzaprine 10 mg PO TID PRN #12 tab 12/10/19 hydrocodone-acetaminophen [Garvin] 1 tab PO Q6H PRN #7 tab 12/10/19 ondansetron 4 mg PO Q6H PRN #20 tab 09/09/20 hydrocodone-acetaminophen 1 tab PO Q6H PRN #7 tab 10/30/20 ondansetron 4 mg PO Q8H PRN #10 tab 10/30/20 Allergies Allergy/AdvReac Type Severity Reaction Status Date / Time amoxicillin Allergy Verified 05/16/20 19:50 Review of Systems Review of Systems Narrative: GENERAL: Denies chills, fatigue, malaise, fever, sweats. HEENT: Denies sinus pain, ear pain, sore throat, difficulty swallowing RESPIRATORY: Denies dyspnea, cough CARDIOVASCULAR: Denies chest pain, palpitations, edema, GASTROINTESTINAL: Denies nausea, vomiting, abdominal pain, diarrhea MUSCULOSKELETAL: denies muscle or bony pain SKIN: Denies rash, skin lesions NEUROLOGIC: Denies weakness, headache ROS Unobtainable: All systems reviewed & are unremarkable except as noted in HPI and below Patient History Medical History (Updated 10/30/20 @ 01:06 by Torey Dwyer MD) Chronic back pain Chronic daily headache History of multiple concussions Migraine headache Tendinitis Surgical History Hx of tympanostomy tubes Social History Smoking Status: Current every day smoker Tobacco: How many years used: 20 alcohol intake: current substance use type: marijuana Smoking Status: Current every day smoker alcohol intake frequency: 0-2 drinks per day Substance Use Type: marijuana Exam Narrative Exam Narrative: GENERAL: patient appears stated age. Well-nourished, well- developed patient, in no distress, not toxic not dyspneic HEAD: Normocephalic. EYES: Pupils equal round and reactive. No scleral icterus. No injection no discharge ENT: Mucous membranes moist. No drooling no tongue elevation no trismus no malocclusion, diffuse dental caries bilaterally and upper and lower. Teeth 4. And 31 and 32, no palpable abscess. No facial swelling. No gum erythema or edema. Has extensive dental decay. NECK: Trachea midline. Non tender, no midline shift. Trachea is midline. No stridor NEURO: AOx4. SKIN: Warm and dry PSYCH: Not anxious, is cooperative Initial Vital Signs Initial Vital Signs: Vital Signs Temperature 97.5 F L 10/29/20 23:10 Pulse Rate 84 10/29/20 23:10 Respiratory Rate 22 10/29/20 23:10 Blood Pressure 139/79 10/29/20 23:10 Pulse Oximetry 98 10/29/20 23:10 Course Course Course Narrative: No new issues during course of stay Orders Ordered: Discontinued Medications Hydrocodone Bitart/Acetaminophen (Hydrocodone/Acet 5/325 Tablet) 2 tab PO NOW ONE Stop: 10/30/20 00:05 Last Admin: 10/30/20 00:24 Dose: 2 tab Documented by: ABIMAEL Ibuprofen (Ibuprofen 400 Mg Tablet) 400 mg PO NOW ONE Stop: 10/30/20 00:05 Last Admin: 10/30/20 00:24 Dose: 400 mg Documented by: ABIMAEL Ondansetron HCl (Ondansetron 4 Mg Odt) 4 mg SL NOW ONE Stop: 10/30/20 00:05 Last Admin: 10/30/20 00:24 Dose: 4 mg Documented by: ABIMAEL Reevaluation(s) Reevaluation #1: Patient agrees with treatment plan. Continue antibiotics and follow up with dentist as scheduled. Time: 00:26 Vital Signs Vital signs: Vital Signs - 8 hr 10/29/20 23:10 Temperature 97.5 F L Pulse Rate 84 Respiratory Rate 22 Blood Pressure 139/79 Pulse Oximetry 98 MDM - Dental/Oral Differential Diagnosis Differential diagnosis: Likely gingival abscess, dental caries, toothache, dental abscess and fracture of tooth MDM Narrative Medical decision making narrative: Appropriate for discharge home. Nontoxic. No laboratory studies indicated. No CT scan. No clinical signs of abscess. No cellulitis. Has appointment scheduled for dentist already. Discharge Plan Departure Patient Disposition: Home Clinical Impression: Dental caries Instructions: Tooth Decay, DI for Dental Pain Activity Restrictions/Additional Instructions: No driving or operating machinery tonight. See your dentist as scheduled this month November 14 in November 19 as scheduled. Continue antibiotics prescribed to you by your provider. Return if worse or if any questions concerns. Stop smoking. Prescriptions: New hydrocodone-acetaminophen 5-325 mg tablet 1 tab PO Q6H PRN (Reason: pain) Qty: 7 RF: 0 ondansetron 4 mg tablet,disintegrating 4 mg PO Q8H PRN (Reason: nausea and vomiting) Qty: 10 RF: 0 No Action ondansetron HCl [Zofran] 4 mg tablet 4 mg PO Q6H PRN (Reason: nausea and vomiting) Qty: 5 RF: 0 metoprolol tartrate 25 mg tablet 1 tab PO BID RF: 0 diphenhydramine-acetaminophen [Percogesic] 12.5-325 mg Tablet 1 tab PO PRN PRN (Reason: Headache) RF: 0 Unknown Night Medication 1 tab PO BEDTIME PRN (Reason: Migraine Headache) RF: 0 hydrocodone-acetaminophen [Garvin] 5-325 mg tablet 1 tab PO Q4-6H PRN (Reason: pain) Qty: 10 RF: 0 cyclobenzaprine 10 mg tablet 10 mg PO TID PRN (Reason: muscle spasm) Qty: 12 RF: 0 hydrocodone-acetaminophen [Garvin] 5-325 mg tablet 1 tab PO Q6H PRN (Reason: pain) Qty: 7 RF: 0 ondansetron 4 mg tablet,disintegrating 4 mg PO Q6H PRN (Reason: nausea and vomiting) Qty: 20 RF: 0 Referrals: Sylvia Huynh MD [Primary Care Provider] -
[2020-10-30] MEDS: HYDROCODONE/ACET 5/325 TABLET 2 TAB PO (00:24)
[2020-10-30] MEDS: ONDANSETRON 4 MG ODT SL (00:24)
[2020-10-30] MEDS: IBUPROFEN 400 MG TABLET PO (00:24)
== END 2020-10-30 00:38 | disposition home or self-care (01) ==
PROVIDERS: Emergency Provider Emergency Medicine; PCP Family Medicine
DX: K02.9 Dental caries, unspecified (principal)
CPT/HCPCS: 99281; 99283

== ENCOUNTER 2022-07-19 20:31 | Emergency (ER) | payer OTHER, MEDICAID, SELFPAY ==
[2022-07-19 20:33] VITALS: BP 143/82; PULSE 90; RESP 20; TEMP 36.4; O2SAT 98; BMI 31.1
--- NOTE | 2022-07-19 20:50 | ED.BACK ---
HPI - Back Pain/Injury General Chief Complaint: Back Pain/Injury Stated Complaint: Lower RT back pain Time Seen by Provider: 07/19/22 20:46 Source: patient Mode of arrival: Ambulatory Limitations: no limitations History of Present Illness HPI Narrative: 37-year-old male here for evaluation of right-sided lower back discomfort. Symptoms started last evening. He got off work. He went and sat in his car when he had a fairly sudden onset of the discomfort. There was no specific injury that caused it. It has been worsening since then. He now has a difficult time standing up straight. It feels somewhat better to put ice over the area. It is worse with palpation. Related Data Home Medications Medication Instructions Recorded Confirmed Unknown Night Medication 1 tab PO BEDTIME PRN Migraine 03/11/18 03/11/18 Headache diphenhydramine 12.5 1 tab PO PRN PRN Headache 03/11/18 03/11/18 mg-acetaminophen 325 mg tablet (Percogesic) metoprolol tartrate 25 mg tablet 1 tab PO BID 03/11/18 03/11/18 Previous Rx's Medication Instructions Recorded hydrocodone 5 mg-acetaminophen 325 1 tab PO Q4-6H PRN pain #10 tabs 12/21/ mg tablet ([place]) ondansetron HCl 4 mg tablet 4 mg PO Q6H PRN nausea and 12/06/19 (Zofran) vomiting #5 tabs cyclobenzaprine 10 mg tablet 10 mg PO TID PRN muscle spasm #12 12/10/19 tabs hydrocodone 5 mg-acetaminophen 325 1 tab PO Q6H PRN pain #7 tabs 12/09/20 mg tablet ([place]) ondansetron 4 mg disintegrating 4 mg PO Q6H PRN nausea and 09/09/20 tablet vomiting #20 tabs hydrocodone 5 mg-acetaminophen 325 1 tab PO Q6H PRN pain #7 tabs 10/30/ mg tablet ondansetron 4 mg disintegrating 4 mg PO Q8H PRN nausea and 10/30/20 tablet vomiting #10 tabs cyclobenzaprine 10 mg tablet 10 mg PO TID PRN muscle spasm #21 07/19/22 tabs Allergies Allergy/AdvReac Type Severity Reaction Status Date / Time amoxicillin Allergy Verified 05/16/20 19:50 Review of Systems Genitourinary Genitourinary: Reports system reviewed and no additional complaints, except as documented Musculoskeletal Musculoskeletal: Reports system reviewed and no additional complaints, except as documented Integumentary/Breasts Skin/Breast: Reports system reviewed and no additional complaints, except as documented Neurologic Neurologic: Reports system reviewed and no additional complaints, except as documented Hematologic/Lymphatic On Anticoagulants: No Patient History Medical History Chronic back pain Chronic daily headache History of multiple concussions Migraine headache Tendinitis Surgical History Hx of tympanostomy tubes Social History Smoking Status: Current every day smoker Tobacco: How many years used: 20 alcohol intake: current substance use type: marijuana Smoking Status: Current every day smoker alcohol intake frequency: 0-2 drinks per day Substance Use Type: marijuana Exam Initial Vital Signs Initial Vital Signs: Vital Signs Temperature 97.6 F 07/19/22 20:33 Pulse Rate 90 07/19/22 20:33 Respiratory Rate 20 07/19/22 20:33 Blood Pressure 143/82 H 07/19/22 20:33 Pulse Oximetry 98 07/19/22 20:33 Oxygen Delivery Method 07/19/22 20:33 Const General: cooperative and healthy appearing Resp Effort & Inspection: normal respiratory effort Cardio Rate: regular rate Back/Spine/Pelvis Thoracic/Lumbar Spine: paraspinal tenderness, No thoracic spinal tenderness and No lumbar spinal tenderness Skin General: no rashes or lesions noted Extrem General: normal to inspection and capillary refill normal Psych Appearance: grossly normal Course Orders Ordered: Discontinued Medications Hydrocodone Bitart/Acetaminophen (Hydrocodone/Acet 5/325 Tablet) 1 tab PO NOW ONE Stop: 07/19/22 21:50 Last Admin: 07/19/22 21:57 Dose: 1 tab Documented By: YANET Cyclobenzaprine HCl (Cyclobenzaprine 10 Mg Tablet) 10 mg PO NOW ONE Stop: 07/19/22 20:51 Last Admin: 07/19/22 21:01 Dose: 10 mg Documented By: MLYoselin Cyclobenzaprine HCl (Cyclobenzaprine 10 Mg Prepack) 1 bottle MISC SEEINSTR ONE Stop: 07/19/22 21:50 Last Admin: 10/23/22 21:56 Dose: 1 bottle Documented By: YANET Ketorolac Tromethamine (Ketorolac 30 Mg/Ml Vial) 30 mg IM NOW ONE Stop: 07/19/22 20:51 Last Admin: 07/19/22 21:01 Dose: 30 mg Documented By: KIMMY Vital Signs Vital signs: Vital Signs - 8 hr 07/19/22 20:33 07/19/22 22:00 Temperature 97.6 F Pulse Rate 90 69 Respiratory Rate 20 18 Blood Pressure 143/82 H 127/77 Pulse Oximetry 98 99 Oxygen Delivery Method Room Air Room Air MDM - Back Pain/Injury MDM Narrative Medical decision making narrative: Obvious muscle spasm right-sided paraspinal region with fullness in this area. No indication for radiologic studies. Will treat symptoms with medications. He was given return precautions. He expressed understanding and Discharge Plan Departure Patient Disposition: Home Clinical Impression: Spasm of lumbar paraspinous muscle Instructions: DI for Muscle Strain Activity Restrictions/Additional Instructions: I recommend that you use the muscle relaxers as directed other conservative measures such as heat/ice/massage and stretching can be helpful as well. Return to the emergency department for any new symptoms Prescriptions: New cyclobenzaprine 10 mg tablet 10 mg PO TID PRN (Reason: muscle spasm) Qty: 21 0RF No Action ondansetron HCl [Zofran] 4 mg tablet 4 mg PO Q6H PRN (Reason: nausea and vomiting) Qty: 5 0RF hydrocodone-acetaminophen 5-325 mg tablet 1 tab PO Q6H PRN (Reason: pain) Qty: 7 0RF ondansetron 4 mg tablet,disintegrating 4 mg PO Q8H PRN (Reason: nausea and vomiting) Qty: 10 0RF metoprolol tartrate 25 mg tablet 1 tab PO BID Label Comments: not sure of date last taken...states was in November. cannot find medication. diphenhydramine-acetaminophen [Percogesic] 12.5-325 mg Tablet 1 tab PO PRN PRN (Reason: Headache) Unknown Night Medication 1 tab PO BEDTIME PRN (Reason: Migraine Headache) Label Comments: patient misplaced medication. has not taken for some time. Written for by Dr. Harriet Palacios hydrocodone-acetaminophen [[place]] 5-325 mg tablet 1 tab PO Q4-6H PRN (Reason: pain) Qty: 10 0RF cyclobenzaprine 10 mg tablet 10 mg PO TID PRN (Reason: muscle spasm) Qty: 12 0RF hydrocodone-acetaminophen [[place]] 5-325 mg tablet 1 tab PO Q6H PRN (Reason: pain) Qty: 7 0RF ondansetron 4 mg tablet,disintegrating 4 mg PO Q6H PRN (Reason: nausea and vomiting) Qty: 20 0RF Referrals: Sylvia Huynh MD [Primary Care Provider] - Stand Alone Forms: Work Release Note Visit Report Forms: Patient Portal/API
[2022-07-19] MEDS: KETOROLAC 30 MG/ML VIAL IM (21:01)
[2022-07-19] MEDS: CYCLOBENZAPRINE 10 MG TABLET PO (21:01)
[2022-07-19] MEDS: CYCLOBENZAPRINE 10 MG PREPACK 1 BOTTLE MISC (21:56)
[2022-07-19] MEDS: HYDROCODONE/ACET 5/325 TABLET 1 TAB PO (21:57)
[2022-07-19 22:00] VITALS: BP 127/77; PULSE 69; RESP 18; O2SAT 99
== END 2022-07-19 22:01 | disposition home or self-care (01) ==
PROVIDERS: Emergency Provider Emergency Medicine; PCP Family Medicine
DX: M62.830 Muscle spasm of back (principal)
CPT/HCPCS: 96372; 99283; J1885

== ENCOUNTER 2022-09-20 19:31 | Emergency (ER) | payer OTHER, MEDICAID, SELFPAY ==
[2022-09-20] VITALS (10 sets, daily range): BP systolic 119–143; BP diastolic 56–92; PULSE 88–112; RESP 16–33; TEMP 36.5–37.5; O2SAT 93–99; BMI 32.6
--- NOTE | 2022-09-20 19:55 | DI.RAD.S_ITS ---
PROCEDURE: XR CHEST 1V INDICATIONS: Shortness of breath TECHNIQUE: One view of the chest was acquired. COMPARISON: CT, CT ABDOMEN PELVIS W CON, 09/09/2020, 13:09. FINDINGS: Surgical changes and devices: None. Lungs and pleura: Lungs are clear. No pleural effusions or pneumothorax. It is noted costophrenic angles are not fully included within the field of view and cannot be evaluated. Mediastinum: Mediastinal contours appear normal. Heart size is normal. Bones and chest wall: No suspicious bony lesions. Overlying soft tissues appear unremarkable. IMPRESSION: No consolidations. Dictated by: Beth Harmon M.D. on 09/20/2022 at 20:32 Approved by: Beth Harmon M.D. on 09/20/2022 at 20:33
--- NOTE | 2022-09-20 20:24 | ED_ITS ---
HPI - General Adult General Chief complaint: Upper Respiratory Symptoms Stated complaint: coughing/sob x2 days Time Seen by Provider: 09/20/22 19:49 History of Present Illness HPI narrative: 37-year-old gentleman transitioning male to female with no hormones for the last year( has no preference with pronoun use), chronic stomach issues, PTSD, asthma, 20+ pack-year history of tobacco use, chronic [facility]ra[facility] typically followed [facility] but minimally compliant with medications presents with acute onset last night of nasal stuffiness and then today dramatically increased short shortness of breath, cough exertional dyspnea difficulty even getting out of bed because of myalgias, dry heaves through most of the day. He does not complain of palpitations he has had mild headaches. Related Data Home Medications Medication Instructions Recorded Confirmed Unknown Night Medication 1 tab PO BEDTIME PRN Migraine 03/11/18 03/11/18 Headache diphenhydramine 12.5 1 tab PO PRN PRN Headache 03/11/18 03/11/18 mg-acetaminophen 325 mg tablet (Percogesic) metoprolol tartrate 25 mg tablet 1 tab PO BID 03/11/18 03/11/18 Previous Rx's Medication Instructions Recorded hydrocodone 5 mg-acetaminophen 325 1 tab PO Q4-6H PRN pain #10 tabs 12/21/ mg tablet ([facility]) ondansetron HCl 4 mg tablet 4 mg PO Q6H PRN nausea and 12/06/19 (Zofran) vomiting #5 tabs cyclobenzaprine 10 mg tablet 10 mg PO TID PRN muscle spasm #12 12/10/19 tabs hydrocodone 5 mg-acetaminophen 325 1 tab PO Q6H PRN pain #7 tabs 12/09/20 mg tablet ([facility]) ondansetron 4 mg disintegrating 4 mg PO Q6H PRN nausea and 09/09/20 tablet vomiting #20 tabs hydrocodone 5 mg-acetaminophen 325 1 tab PO Q6H PRN pain #7 tabs 10/30/20 mg tablet ondansetron 4 mg disintegrating 4 mg PO Q8H PRN nausea and 10/30/20 tablet vomiting #10 tabs cyclobenzaprine 10 mg tablet 10 mg PO TID PRN muscle spasm #21 07/19/22 tabs ondansetron 4 mg disintegrating 4 mg PO Q8H PRN nausea and 09/20/22 tablet vomiting #14 tabs Allergies Allergy/AdvReac Type Severity Reaction Status Date / Time amoxicillin Allergy Verified 05/16/20 19:50 Review of Systems Review of Systems Narrative: Remainder of complete review of systems is otherwise unremarkable except for that included in the HPI. Patient History Medical History (Updated 09/20/22 @ 22:14 by Dianna Kennedy MD) Chronic back pain Chronic daily headache History of multiple concussions Migraine headache Tendinitis Surgical History Hx of tympanostomy tubes Social History Smoking Status: Current every day smoker Tobacco: How many years used: 20 alcohol intake: current substance use type: marijuana Smoking Status: Current every day smoker alcohol intake frequency: 0-2 drinks per day Substance Use Type: marijuana Exam Initial Vital Signs Initial Vital Signs: Vital Signs Temperature 97.7 F 09/20/22 19:43 Pulse Rate 112 H 09/20/22 19:43 Respiratory Rate 16 09/20/22 19:43 Blood Pressure 143/92 H 09/20/22 19:43 Pulse Oximetry 95 09/20/22 19:43 Oxygen Delivery Method 09/20/22 19:43 General: Appears to feel unwell, pale, profusely diaphoretic but Able to give a complete and coherent history. Well-nourished well-developed HEENT: Moist mucous membranes, normal sclera with reactive pupils, Neck: No JVD, supple Respiratory: Lungs with poor overall air movement, wheezing in all lung german minimized due to poor overall air movement, no consolidated findings he is able to speak in full sentences and is not using accessory muscles Cardiac: Tachycardic but otherwise Regular rate and rhythm no murmurs no bruits Abdomen: Soft, nontender, good bowel tones, no flank pain Skin: Diaphoretic,, no rashes Neurologic: Grossly neurologically intact with no obvious asymmetries or abnormalities Extremities: No trauma, well perfused Psych: Cooperative, appropriate insight and affect Course Orders Ordered: ED Orders 09/20/22 19:45 Covid-19 + FLU A/B + RSV - PCR Stat 09/20/22 19:46 Respiratory Panel (Film Array) Stat 09/20/22 19:55 XR chest 1V Stat EKG-12 Lead Stat Measure peak expiratory flow ONCE RT Consult Eval and Treat NOW 09/20/22 20:10 Complete Blood Count AUTO DIFF Stat Comprehensive Metabolic Panel Stat D Dimer Stat Lactate (Lactic Acid) Stat NT-proBNP (BNP-Adult 18+) Stat Procalcitonin Stat Prothrombin Time INR Stat Troponin I Stat 09/20/22 20:45 CT abdomen pelvis w con Stat Discontinued Medications Albuterol/Ipratropium (Albuterol/Ipratropium 3 Ml Ampul) 3 ml INH NOW ONE Stop: 09/20/22 20:28 Last Admin: 09/20/22 20:39 Dose: 3 ml Documented By: Sodium Chloride (Normal Saline 0.9%) 1,000 mls @ 1,000 mls/hr IV BOLUS ONE Stop: 09/20/22 21:22 Last Infusion: 09/20/22 21:58 Dose: 0 mls/hr Documented By: Admin: 09/20/22 20:33 Dose: 1,000 mls/hr Documented By: GET Magnesium Sulfate (Magnesium Sulfate) 2 gm in 50 mls @ 150 mls/hr IV NOW ONE Stop: 09/20/22 20:46 Last Infusion: 09/20/22 21:05 Dose: 0 mls/hr Documented By: GET Co-signed By: BRADY Admin: 09/20/22 20:44 Dose: 150 mls/hr Documented By: GET Co-signed By: BRADY Methylprednisolone (Methylprednisolone 125 Mg/2 Ml Vial) 125 mg IV NOW ONE Stop: 09/20/22 20:24 Last Admin: 09/20/22 20:33 Dose: 125 mg Documented By: GET Ondansetron HCl (Ondansetron 4 Mg/2 Ml Inj) 4 mg IV NOW ONE Stop: 09/20/22 20:24 Last Admin: 09/20/22 20:33 Dose: 4 mg Documented By: GET Vital Signs Vital signs: Vital Signs - 8 hr 09/20/22 19:43 09/20/22 20:00 09/20/22 20:00 Temperature 97.7 F Pulse Rate 112 H 101 H Respiratory Rate 16 Blood Pressure 143/92 H 134/80 Pulse Oximetry 95 94 Oxygen Delivery Method Room Air 09/20/22 20:30 09/20/22 20:32 09/20/22 20:32 Temperature Pulse Rate 88 90 Respiratory Rate 31 H 23 Blood Pressure 142/65 H Pulse Oximetry 95 94 Oxygen Delivery Method 09/20/22 20:45 09/20/22 20:45 09/20/22 20:50 Temperature Pulse Rate 99 H 102 H Respiratory Rate 27 H 33 H Blood Pressure 126/58 L Pulse Oximetry 99 97 Oxygen Delivery Method 09/20/22 20:50 09/20/22 21:19 09/20/22 21:19 Temperature Pulse Rate 105 H Respiratory Rate 19 Blood Pressure 135/63 123/65 Pulse Oximetry 96 Oxygen Delivery Method 09/20/22 21:30 09/20/22 21:30 Temperature Pulse Rate 97 H Respiratory Rate 26 H Blood Pressure 119/58 L Pulse Oximetry 95 Oxygen Delivery Method Room Air Medical Decision Making Lab Data Result diagrams: 09/20/22 20:10 09/20/22 20:10 Labs: Lab Results 09/20/22 09/20/22 09/20/22 Range/Units 19:45 19:46 20:10 WBC 14.2 H (4.5-11.0) X10^3/uL RBC 5.70 (4.5-5.9) X10^6/uL Hgb 17.5 (13.5-17.5) g/dL Hct 50.5 (41-53) % MCV 88.5 (80-100) fL MCH 30.7 (26-34) PG MCHC 34.7 (30-36) % RDW 13.3 (11.6-14.8) % Plt Count 259 (150-400) X10^3/uL Neut % (Auto) 85.7 H (50-75) % Lymph % (Auto) 5.7 L (25-40) % Roosevelt % (Auto) 4.5 (3-14) % Eos % (Auto) 3.8 (2-4) % Baso % (Auto) 0.3 (0-2) % Neut # (Auto) 47018 H (6821-1026) /uL Lymph # (Auto) 800 L (5858-6832) /uL Roosevelt # (Auto) 600 (0-900) /uL Eos # (Auto) 500 H (0-450) /uL Baso # (Auto) 0 (0-100) /uL PT (10.1-12.7) SECONDS INR (0.9-1.3) D-Dimer (<500) ng/ml Sodium (137-145) mmol/L Potassium (3.4-5.1) mmol/L Chloride (98-107) mmol/L Carbon Dioxide (22-32) mmol/L BUN (9-20) mg/dL Creatinine (0.66-1.25) mg/dL Estimated GFR (>60) mL/min BUN/Creatinine Ratio (6-22) Glucose (70-100) mg/dL Lactate (0.7-2.1) mmol/L Calcium (8.4-10.2) mg/dL Total Bilirubin (0.2-1.3) mg/dL AST (17-59) IU/L ALT (<50) IU/L Alkaline Phosphatase (38-126) U/L Troponin I (0.01-0.034) ng/mL NT-Pro-B Natriuret Pep (<125) pg/mL Total Protein (6.3-8.2) g/dL Albumin (3.5-5.0) g/dL Globulin (1.7-4.1) g/dL Albumin/Globulin Ratio (1.0-2.8) Procalcitonin (<0.5) ng/mL Chlamy pneumoniae PCR Not detected (Not Detect) Adenovirus (PCR) Not detected (Not Detect) B. pertussis DNA (PCR) Not detected (Not Detecte) B.parapertussis DNA PCR Not detected (Not Detecte) Coronavirus OC43 (PCR) Not detected (Not Detect) Coronavirus HKU1 (PCR) Not detected (Not Detect) Coronavirus 229E (PCR) Not detected (Not Detect) SARS-CoV-2 (PCR) Negative Not detected (Negative) Coronavirus NL63 (PCR) Not detected (Not Detect) Human Metapneumovir PCR Not detected (Not Detect) Influenza A (RT-PCR) Flu a negative (NEGATIVE) Influenza Type A (PCR) Not detected (Not Detect) Influenza B (RT-PCR) Flu b negative (NEGATIVE) Influenza Type B (PCR) Not detected (Not Detect) M. pneumoniae (PCR) Not detected (Not Detect) Parainfluenza 1 (PCR) Not detected (Not Detect) Parainfluenza 2 (PCR) Not detected (Not Detect) Parainfluenza 3 (PCR) Not detected (Not Detect) Parainfluenza 4 (PCR) Not detected (Not Detect) RSV (PCR) Negative Not detected (Negative) Entero/Rhino (PCR) Detected H (Not Detect) 09/20/22 09/20/22 09/20/22 Range/Units 20:10 20:10 20:10 WBC (4.5-11.0) X10^3/uL RBC (4.5-5.9) X10^6/uL Hgb (13.5-17.5) g/dL Hct (41-53) % MCV (80-100) fL MCH (26-34) PG MCHC (30-36) % RDW (11.6-14.8) % Plt Count (150-400) X10^3/uL Neut % (Auto) (50-75) % Lymph % (Auto) (25-40) % Roosevelt % (Auto) (3-14) % Eos % (Auto) (2-4) % Baso % (Auto) (0-2) % Neut # (Auto) (6314-8969) /uL Lymph # (Auto) (2256-4667) /uL Roosevelt # (Auto) (0-900) /uL Eos # (Auto) (0-450) /uL Baso # (Auto) (0-100) /uL PT 13.1 H (10.1-12.7) SECONDS INR 1.1 (0.9-1.3) D-Dimer (<500) ng/ml Sodium 140 (137-145) mmol/L Potassium 4.0 (3.4-5.1) mmol/L Chloride 106 (98-107) mmol/L Carbon Dioxide 23 (22-32) mmol/L BUN 9 (9-20) mg/dL Creatinine 1.07 (0.66-1.25) mg/dL Estimated GFR > 60 (>60) mL/min BUN/Creatinine Ratio 8.4 (6-22) Glucose 94 (70-100) mg/dL Lactate 1.1 (0.7-2.1) mmol/L Calcium 9.1 (8.4-10.2) mg/dL Total Bilirubin 1.0 (0.2-1.3) mg/dL AST 23 (17-59) IU/L ALT 21 (<50) IU/L Alkaline Phosphatase 65 (38-126) U/L Troponin I < 0.012 (0.01-0.034) ng/mL NT-Pro-B Natriuret Pep 54 (<125) pg/mL Total Protein 7.8 (6.3-8.2) g/dL Albumin 4.7 (3.5-5.0) g/dL Globulin 3.1 (1.7-4.1) g/dL Albumin/Globulin Ratio 1.5 (1.0-2.8) Procalcitonin (<0.5) ng/mL Chlamy pneumoniae PCR (Not Detect) Adenovirus (PCR) (Not Detect) B. pertussis DNA (PCR) (Not Detecte) B.parapertussis DNA PCR (Not Detecte) Coronavirus OC43 (PCR) (Not Detect) Coronavirus HKU1 (PCR) (Not Detect) Coronavirus 229E (PCR) (Not Detect) SARS-CoV-2 (PCR) (Negative) Coronavirus NL63 (PCR) (Not Detect) Human Metapneumovir PCR (Not Detect) Influenza A (RT-PCR) (NEGATIVE) Influenza Type A (PCR) (Not Detect) Influenza B (RT-PCR) (NEGATIVE) Influenza Type B (PCR) (Not Detect) M. pneumoniae (PCR) (Not Detect) Parainfluenza 1 (PCR) (Not Detect) Parainfluenza 2 (PCR) (Not Detect) Parainfluenza 3 (PCR) (Not Detect) Parainfluenza 4 (PCR) (Not Detect) RSV (PCR) (Negative) Entero/Rhino (PCR) (Not Detect) 09/20/22 09/20/22 Range/Units 20:10 20:10 WBC (4.5-11.0) X10^3/uL RBC (4.5-5.9) X10^6/uL Hgb (13.5-17.5) g/dL Hct (41-53) % MCV (80-100) fL MCH (26-34) PG MCHC (30-36) % RDW (11.6-14.8) % Plt Count (150-400) X10^3/uL Neut % (Auto) (50-75) % Lymph % (Auto) (25-40) % Roosevelt % (Auto) (3-14) % Eos % (Auto) (2-4) % Baso % (Auto) (0-2) % Neut # (Auto) (3651-8841) /uL Lymph # (Auto) (8802-5071) /uL Roosevelt # (Auto) (0-900) /uL Eos # (Auto) (0-450) /uL Baso # (Auto) (0-100) /uL PT (10.1-12.7) SECONDS INR (0.9-1.3) D-Dimer < 215 (<500) ng/ml Sodium (137-145) mmol/L Potassium (3.4-5.1) mmol/L Chloride (98-107) mmol/L Carbon Dioxide (22-32) mmol/L BUN (9-20) mg/dL Creatinine (0.66-1.25) mg/dL Estimated GFR (>60) mL/min BUN/Creatinine Ratio (6-22) Glucose (70-100) mg/dL Lactate (0.7-2.1) mmol/L Calcium (8.4-10.2) mg/dL Total Bilirubin (0.2-1.3) mg/dL AST (17-59) IU/L ALT (<50) IU/L Alkaline Phosphatase (38-126) U/L Troponin I (0.01-0.034) ng/mL NT-Pro-B Natriuret Pep (<125) pg/mL Total Protein (6.3-8.2) g/dL Albumin (3.5-5.0) g/dL Globulin (1.7-4.1) g/dL Albumin/Globulin Ratio (1.0-2.8) Procalcitonin 0.04 (<0.5) ng/mL Chlamy pneumoniae PCR (Not Detect) Adenovirus (PCR) (Not Detect) B. pertussis DNA (PCR) (Not Detecte) B.parapertussis DNA PCR (Not Detecte) Coronavirus OC43 (PCR) (Not Detect) Coronavirus HKU1 (PCR) (Not Detect) Coronavirus 229E (PCR) (Not Detect) SARS-CoV-2 (PCR) (Negative) Coronavirus NL63 (PCR) (Not Detect) Human Metapneumovir PCR (Not Detect) Influenza A (RT-PCR) (NEGATIVE) Influenza Type A (PCR) (Not Detect) Influenza B (RT-PCR) (NEGATIVE) Influenza Type B (PCR) (Not Detect) M. pneumoniae (PCR) (Not Detect) Parainfluenza 1 (PCR) (Not Detect) Parainfluenza 2 (PCR) (Not Detect) Parainfluenza 3 (PCR) (Not Detect) Parainfluenza 4 (PCR) (Not Detect) RSV (PCR) (Negative) Entero/Rhino (PCR) (Not Detect) Imaging Data Chest x-ray: Radiologist's Impression: FINDINGS:? ? Surgical changes and devices:? None.? ? Lungs and pleura:? Lungs are clear.? No pleural effusions or pneumothorax.? It is noted costophrenic angles are not fully included within the field of view and cannot be evaluated. ? Mediastinum:? Mediastinal contours appear normal.? Heart size is normal.? ? Bones and chest wall:? No suspicious bony lesions.? Overlying soft tissues appea r unremarkable.? ? IMPRESSION:? No consolidations. ? ? Dictated by: Beth Harmon M.D. on 09/20/2022 at 20:32 ? ? CT scan - abdomen/pelvis: Radiologist's Impression: FINDINGS:? Image quality:? Excellent.? ? Lung bases:? Unremarkable.? ? Heart:? No significant findings. ? ? ABDOMEN: Liver:? Mildly enlarged measuring 20.6 cm with steatosis. Gallbladder:? Unremarkable.? ? Biliary ducts:? Unremarkable.? ? Pancreas:? Unremarkable.? ? Spleen:? Unremarkable.? ? Adrenal Glands:? Unremarkable.? ? Kidneys and Ureters:? Low-attenuation focus is present within the right kidney likely small simple cyst ? Stomach and Bowel:? Stomach, small bowel loops, and colon are nonobstructive.? There is a thickened appearance at the rectosigmoid without pericolonic stranding.? Appendix is Peritoneum:? No abnormal intraperitoneal fluid.? No free air.? ? Ventral Wall: ? No hernia.? Abdominal Nodes:? No retroperitoneal or mesenteric adenopathy by size criteria.? Vessels:? Aorta and inferior vena cava are normal in size.? ? PELVIS: Pelvic Organs:? Unremarkable.? ? Bladder:? Unremarkable.? ? Pelvic Nodes: No enlarged lymph nodes.? Miscellaneous:? Fat containing inguinal hernias are present, left greater ? Bones:? Unremarkable.? IMPRESSION:? ? Slight appearance of thickening in the rectosigmoid colon.? This could be secondary to very early colitis given lack surrounding pericolonic inflammatory change or incomplete distention. ? ? Dictated by: Beth Harmon M.D. on 09/20/2022 at 21:21 ? ECG Data Interpretation: Independent evaluation by me Sinus rhythm at a rate of 96 Normal intervals, normal axis No acute ischemic changes MDM Narrative Medical decision making narrative: 37-year-old gentleman with acute shortness of breath, cough, diaphoresis. Interviewed patient and his . EMR is reviewed Initial COVID, influenza and RSV screen comes back negative. White blood cell count is slightly elevated to suggest a bacterial component. Does not clinically have pneumonia on his chest x-ray is unremarkable. Certainly could be 1 of the other viruses we been seen, continuing to wait for remainder of workup to return. Will go review findings with patient and re-examined his abdo men to see if that may be a source of infection or elevated white blood cell count, initial exam was benign however he was complaining of dry heaving. 845pm left upper quadrant is moderately tender in left lower quadrant is significantly tender. Will add a CT scan of the abdomen and expand the mini respiratory panel to a full Respiratory panel comes back positive for entero/rhino virus. CT scan suggests some slight thickening in the rectosigmoid colon however no secondary signs of diverticulitis. With recent recommendations for no antibiotic treatment for mild outpatient diverticulitis and chronic pain in that area I am not going to choose to use antibiotics to treat the thickening jeimy reciated in the rectosigmoid colon. Will need follow-up with primary care provider No evidence of pneumonia, pneumothorax, pulmonary embolism, acute coronary syndrome, congestive heart failure, pancreatitis Findings reviewed with patient. He does feel a bit better after fluids. Reviewed all findings with him. His lungs now have opened up significantly in has moderate wheeze in all lung german and is feeling better. Will discharge him home with treatment for an acute COPD exacerbation with 7 days of steroids and use of an albuterol MDI with spacer, prescription for Zofran to do with nausea should it recur and reassurance regarding his viral syndrome and conservative management for treatment of such. Discharge Plan Departure Patient Disposition: Home Clinical Impression: Disease due to enterovirus, Acute exacerbation of chronic obstructive pulmonary disease Instructions: DI for Viral Upper Respiratory Infection -- Adult Activity Restrictions/Additional Instructions: Thank you for coming in tonight You have entero/rhino virus and an acute COPD exacerbation. The upper respir atory virus will simply need to run its course and will last typically 7-10 days. I am going to give you a prescription for steroids to help with the COPD exacerbation and have sent you home with a spacer and an albuterol metered-dose inhaler to use 2 puffs every 6 hours as needed to help with the cough and wheezing. If you have additional nausea, you can use ondansetron tablets. A prescription for these have been electronically transmitted to [facility]. You do need to [facility]up [facility] regarding your COPD and strongly consider stopping smoking With your abdominal pain, your CT scan showed some thickening of the wall of your bowel in the left lower quadrant however it does not look like an acute infection. Again, this deserves outpatient follow-up. I have given you a printed copy of the CT scan result to take with you when you schedule your appointment with [facility]. If you find that you are getting worse or develop any new symptoms, please feel free to return to the emergency department for further evaluation. Prescriptions: New ondansetron 4 mg tablet,disintegrating 4 mg PO Q8H PRN (Reason: nausea and vomiting) Qty: 14 0RF No Action ondansetron HCl [Zofran] 4 mg tablet 4 mg PO Q6H PRN (Reason: nausea and vomiting) Qty: 5 0RF hydrocodone-acetaminophen 5-325 mg tablet 1 tab PO Q6H PRN (Reason: pain) Qty: 7 0RF ondansetron 4 mg tablet,disintegrating 4 mg PO Q8H PRN (Reason: nausea and vomiting) Qty: 10 0RF metoprolol tartrate 25 mg tablet 1 tab PO BID Label Comments: not sure of date last taken...states was in November. cannot find medication. diphenhydramine-acetaminophen [Percogesic] 12.5-325 mg Tablet 1 tab PO PRN PRN (Reason: Headache) Unknown Night Medication 1 tab PO BEDTIME PRN (Reason: Migraine Headache) Label Comments: patient misplaced medication. has not taken for some time. Written for by Dr. Harriet Palacios hydrocodone-acetaminophen [[facility]] 5-325 mg tablet 1 tab PO Q4-6H PRN (Reason: pain) Qty: 10 0RF cyclobenzaprine 10 mg tablet 10 mg PO TID PRN (Reason: muscle spasm) Qty: 12 0RF hydrocodone-acetaminophen [[facility]] 5-325 mg tablet 1 tab PO Q6H PRN (Reason: pain) Qty: 7 0RF ondansetron 4 mg tablet,disintegrating 4 mg PO Q6H PRN (Reason: nausea and vomiting) Qty: 20 0RF cyclobenzaprine 10 mg tablet 10 mg PO TID PRN (Reason: muscle spasm) Qty: 21 0RF Referrals: Sylvia Huynh MD [Primary Care Provider] -
[2022-09-20 20:27] LABS: Add Manual Diff / Slide Review NO; Basophils Absolute Auto 0 /uL (0-100); Basophils Percent Auto 0.3 % (0-2); Eosinophils Absolute Auto 500 /uL (0-450); Eosinophils Percent Auto 3.8 % (2-4); Hematocrit 50.5 % (41-53); Hemoglobin 17.5 g/dL (13.5-17.5); Lymphocytes Absolute Auto 800 /uL (1100-4500); Lymphocytes Percent Auto 5.7 % (25-40); Mean Corpuscular HGB Conc 34.7 % (30-36); Mean Corpuscular Hemoglobin 30.7 PG (26-34); Mean Corpuscular Volume 88.5 fL (80-100); Monocytes Absolute Auto 600 /uL (0-900); Monocytes Percent Auto 4.5 % (3-14); Neutrophils Absolute Auto 12200 /uL (1500-7000); Neutrophils Percent Auto 85.7 % (50-75); Platelet Count 259 X10^3/uL (150-400); Red Cell Distribution Width 13.3 % (11.6-14.8); White Blood Cell Count 14.2 X10^3/uL (4.5-11.0)
[2022-09-20 20:33] LABS: INR 1.1 (0.9-1.3); Prothrombin Time 13.1 SECONDS (10.1-12.7)
[2022-09-20 20:33] LABS: Influenza A - CEPHEID Flu A NEGATIVE (NEGATIVE); Influenza B - CEPHEID Flu B NEGATIVE (NEGATIVE); Respiratory Syncytial Virus Negative (Negative)
[2022-09-20] MEDS: ONDANSETRON 4 MG/2 ML INJ IV (20:33)
[2022-09-20] MEDS: SODIUM CHLORIDE 0.9% 1,000 ML 1000 ML IV (20:33)
[2022-09-20] MEDS: methylPREDNISolone 125 MG/2 ML VIAL IV (20:33)
[2022-09-20 20:36] LABS: Lactate (Lactic Acid) 1.1 mmol/L (0.7-2.1)
[2022-09-20 20:37] LABS: Alanine Aminotransferase 21 IU/L (<50); Albumin 4.7 g/dL (3.5-5.0); Albumin Globulin Ratio 1.5 (1.0-2.8); Alkaline Phosphatase 65 U/L (38-126); Aspartate Aminotransferase 23 IU/L (17-59); BUN Creatinine Ratio 8.4 (6-22); Blood Urea Nitrogen 9 mg/dL (9-20); Calcium 9.1 mg/dL (8.4-10.2); Carbon Dioxide 23 mmol/L (22-32); Chloride 106 mmol/L (98-107); Estimated Glomerular Filt Rate > 60 mL/min (>60); Globulin 3.1 g/dL (1.7-4.1); Glucose 94 mg/dL (70-100); HEMOLYSIS < 15 (0-50); Sodium 140 mmol/L (137-145); Total Protein 7.8 g/dL (6.3-8.2)
[2022-09-20 20:38] LABS: COVID-19 CEPHEID 4-PLEX PCR Negative (Negative)
[2022-09-20] MEDS: ALBUTEROL/IPRATROPIUM 3 ML AMPUL INH (20:39)
[2022-09-20 20:43] LABS: D Dimer < 215 ng/ml (<500)
[2022-09-20] MEDS: MAGNESIUM SULFATE 2 GM/50 ML PIGGYBACK IV (20:44)
--- NOTE | 2022-09-20 20:45 | DI.CT.S_ITS ---
PROCEDURE: CT ABDOMEN PELVIS W CON INDICATIONS: fever, leukocytosis, LLQ pain TECHNIQUE: After the administration of IV contrast, axial sections were acquired from the lung bases to the pubic symphysis. Coronal and sagittal reformats were performed. For radiation dose reduction, the following was used: automated exposure control, adjustment of mA and/or kV according to patient size. COMPARISON: [facility], CT, CT ABDOMEN PELVIS W CON, 09/09/2020, 13:09. FINDINGS: Image quality: Excellent. Lung bases: Unremarkable. Heart: No significant findings. ABDOMEN: Liver: Mildly enlarged measuring 20.6 cm with steatosis. Gallbladder: Unremarkable. Biliary ducts: Unremarkable. Pancreas: Unremarkable. Spleen: Unremarkable. Adrenal Glands: Unremarkable. Kidneys and Ureters: Low-attenuation focus is present within the right kidney likely small simple cyst Stomach and Bowel: Stomach, small bowel loops, and colon are nonobstructive. There is a thickened appearance at the rectosigmoid without pericolonic stranding. Appendix is Peritoneum: No abnormal intraperitoneal fluid. No free air. Ventral Wall: No hernia. Abdominal Nodes: No retroperitoneal or mesenteric adenopathy by size criteria. Vessels: Aorta and inferior vena cava are normal in size. PELVIS: Pelvic Organs: Unremarkable. Bladder: Unremarkable. Pelvic Nodes: No enlarged lymph nodes. Miscellaneous: Fat containing inguinal hernias are present, left greater Bones: Unremarkable. IMPRESSION: Slight appearance of thickening in the rectosigmoid colon. This could be secondary to very early colitis given lack surrounding pericolonic inflammatory change or incomplete distention. Dictated by: Beth Harmon M.D. on 09/20/2022 at 21:21 Approved by: Beth Harmon M.D. on 09/20/2022 at 21:25
[2022-09-20 20:49] LABS: NT-proBNP (BNP-Adult 18+) 54 pg/mL (<125); Troponin I < 0.012 ng/mL (0.01-0.034)
[2022-09-20 21:10] LABS: Procalcitonin 0.04 ng/mL (<0.5)
[2022-09-20 21:38] LABS: Adenovirus Not Detected (Not Detect); B. parapertussis Not Detected (Not Detecte); Bordetella pertussis Not Detected (Not Detecte); Chlamydophila pneumoniae Not Detected (Not Detect); Coronavirus 229E Not Detected (Not Detect); Coronavirus HKU1 Not Detected (Not Detect); Coronavirus NL 63 Not Detected (Not Detect); Coronavirus OC43 Not Detected (Not Detect); Human Metapneumovirus Not Detected (Not Detect); Human Rhinovirus/Enterovirus Detected (Not Detect); Influenza A Not Detected (Not Detect); Influenza B Not Detected (Not Detect); Mycoplasma pneumoniae Not Detected (Not Detect); Parainfluenza Virus 1 Not Detected (Not Detect); Parainfluenza Virus 2 Not Detected (Not Detect); Parainfluenza Virus 3 Not Detected (Not Detect); Parainfluenza Virus 4 Not Detected (Not Detect); Respiratory Syncytial Virus Not Detected (Not Detect); SARS- CoV-2 Not Detected (Not Detecte)
[2022-09-20] MEDS: ALBUTEROL HFA PREPACK 1 BOX MISC (22:20)
== END 2022-09-20 22:30 | disposition home or self-care (01) ==
PROVIDERS: Emergency Provider Emergency Medicine; PCP Family Medicine
DX: J44.1 Chronic obstructive pulmonary disease with (acute) exacerbation (principal); J06.9 Acute upper respiratory infection, unspecified; B34.1 Enterovirus infection, unspecified; R51.9 Headache, unspecified; Z79.899 Other long term (current) drug therapy; Z20.822 Contact with and (suspected) exposure to COVID-19
CPT/HCPCS: 0241U; 36415; 71045; 74177; 80053; 83605; 83880; 84145; 84484; 85025; 85379; 85610; 87633; 93005; 96361; 96374; 96375; 99284; J2405; J2930; J3475; Q9967

== ENCOUNTER 2022-12-12 20:24 | Emergency (ER) | payer OTHER, MEDICAID, SELFPAY ==
[2022-12-12 20:40] VITALS: BP 118/66; PULSE 114; RESP 22; TEMP 37.7; O2SAT 98; BMI 31.9
--- NOTE | 2022-12-12 20:48 | DI.RAD.S_ITS ---
PROCEDURE: XR CHEST 2V INDICATIONS: sob / covid + / fever TECHNIQUE: 2 views of the chest were acquired. COMPARISON: [facility], CR, XR CHEST 1V, 09/20/2022, 20:11. FINDINGS: Surgical changes and devices: None. Lungs and pleura: Lungs are abnormal, with a patchy alveolar prominence through the lungs bilaterally, best seen at the mid and lower lung parenchyma.. No pleural effusions or pneumothorax. Mediastinum: Mediastinal contours are normal. Heart size is normal. Bones and chest wall: No suspicious bony abnormalities. Soft tissues appear unremarkable. IMPRESSION: Bilateral airspace disease consistent with atypical/viral pneumonia. Dictated by: Cruz Strong M.D. on 12/12/2022 at 21:30 Approved by: Cruz Strong M.D. on 12/12/2022 at 21:31
[2022-12-12 20:53] VITALS: TEMP 37.7
[2022-12-12] MEDS: ACETAMINOPHEN 325 MG TABLET 975 MG PO (20:53)
[2022-12-12] MEDS: IBUPROFEN 400 MG TABLET 800 MG PO (20:53)
[2022-12-12] MEDS: ONDANSETRON 4 MG ODT SL (20:53)
[2022-12-12 21:33] LABS: COVID19 -Nasal RAPID POSITIVE (Negative)
[2022-12-12 21:56] VITALS: BP 103/67; PULSE 98; O2SAT 98
[2022-12-12 22:03] VITALS: TEMP 37.4
--- NOTE | 2022-12-12 22:45 | ED.URI ---
HPI - URI/Sore Throat General Chief Complaint: Upper Respiratory Symptoms Stated Complaint: covid+/body pain/fever x2 days Time Seen by Provider: 12/12/22 20:46 Source: patient Mode of arrival: Wheelchair History of Present Illness HPI Narrative: 37-year-old male smoker without significant chronic medical history presents with family in the chief complaint of various upper respiratory symptoms that started last which includes fever, mild headache, nasal congestion, sore throat and dry hacking cough. He has had nausea and a few episodes of vomiting. He denies any specific chest pain but complains more of just generalized body aches. He took a home COVID test last night which was positive Related Data Home Medications Medication Instructions Recorded Confirmed Unknown Night Medication 1 tab PO BEDTIME PRN Migraine 03/11/18 03/11/18 Headache diphenhydramine 12.5 1 tab PO PRN PRN Headache 03/11/18 03/11/18 mg-acetaminophen 325 mg tablet (Percogesic) metoprolol tartrate 25 mg tablet 1 tab PO BID 03/11/18 03/11/18 Previous Rx's Medication Instructions Recorded hydrocodone 5 mg-acetaminophen 325 1 tab PO Q4-6H PRN pain #10 tabs 12/21/ mg tablet ([place]) ondansetron HCl 4 mg tablet 4 mg PO Q6H PRN nausea and 12/06/19 (Zofran) vomiting #5 tabs cyclobenzaprine 10 mg tablet 10 mg PO TID PRN muscle spasm #12 12/10/19 tabs hydrocodone 5 mg-acetaminophen 325 1 tab PO Q6H PRN pain #7 tabs 12/09/20 mg tablet ([place]) ondansetron 4 mg disintegrating 4 mg PO Q6H PRN nausea and 09/09/20 tablet vomiting #20 tabs hydrocodone 5 mg-acetaminophen 325 1 tab PO Q6H PRN pain #7 tabs 10/30/ mg tablet ondansetron 4 mg disintegrating 4 mg PO Q8H PRN nausea and 10/30/20 tablet vomiting #10 tabs cyclobenzaprine 10 mg tablet 10 mg PO TID PRN muscle spasm #21 07/19/22 tabs ondansetron 4 mg disintegrating 4 mg PO Q8H PRN nausea and 09/20/22 tablet vomiting #14 tabs Allergies Allergy/AdvReac Type Severity Reaction Status Date / Time amoxicillin Allergy Verified 05/16/20 19:50 Review of Systems Review of Systems Narrative: GENERAL: See HPI HEENT: See HPI RESPIRATORY: See HPI CARDIOVASCULAR: Denies chest pain, palpitations, orthopnea, edema, GASTROINTESTINAL: See HPI : Denies dysuria, frequency, incontinence, hematuria, urinary retention. MUSCULOSKELETAL: denies weakness, joint pain, or bony pain SKIN: Denies rash, skin lesions, or other NEUROLOGIC: Denies weakness, headache, numbness, change in speech, confusion, seizures, incoordination. PSYCHIATRIC: No concerning psychosocial issues. 12 point review of systems is negative except for those stated above Patient History Medical History Chronic back pain Chronic daily headache History of multiple concussions Migraine headache Tendinitis Surgical History Hx of tympanostomy tubes Social History Smoking Status: Current every day smoker Tobacco: How many years used: 20 alcohol intake: current substance use type: marijuana Smoking Status: Current every day smoker tobacco type: cigarettes alcohol intake frequency: holidays/special occasions only Substance Use Type: marijuana Exam Narrative Exam Narrative: GENERAL: [37] year old patient appears stated age. Well-developed patient, in mild distress. HEAD: Atraumatic. Normocephalic. EYES: Pupils equal round and reactive. Extraocular motions intact. No scleral icterus. No injection or drainage. ENT: Nose without bleeding, purulent drainage. Throat without erythema, tonsillar hypertrophy or exudate. Airway patent. NECK: Trachea midline. Non tender CARDIOVASCULAR: Regular rate and rhythm without murmurs, gallops, or rubs. RESPIRATORY: Clear to auscultation. Breath sounds equal bilaterally. No wheezes, rales, or rhonchi. GASTROINTESTINAL: Abdomen soft, non-tender, nondistended. EXTREMITIES: No edema or joint tenderness. BACK: Nontender without deformity or crepitance. No flank tenderness. NEURO: AOx3. SKIN: No rash or erythema of visible areas Initial Vital Signs Initial Vital Signs: Vital Signs Temperature 100 F H 12/12/22 20:40 Pulse Rate 114 H 12/12/22 20:40 Respiratory Rate 22 03/18/23 20:40 Blood Pressure 118/66 12/12/22 20:40 Pulse Oximetry 98 12/12/22 20:40 Oxygen Delivery Method Room Air 12/12/22 20:40 Course Orders Ordered: Discontinued Medications Acetaminophen (Acetaminophen 325 Mg Tablet) 975 mg PO NOW ONE Stop: 12/12/22 20:48 Last Admin: 12/12/22 20:53 Dose: 975 mg Documented By: EMA Ibuprofen (Ibuprofen 400 Mg Tablet) 800 mg PO NOW ONE Stop: 12/12/22 20:48 Last Admin: 12/12/22 20:53 Dose: 800 mg Documented By: EMA Ondansetron HCl (Ondansetron 4 Mg Odt) 4 mg SL NOW ONE Stop: 12/12/22 20:51 Last Admin: 12/12/22 20:53 Dose: 4 mg Documented By: EMA Ondansetron HCl (Ondansetron 4 Mg Odt Prepack) 1 bottle MISC SEEINSTR ONE Stop: 12/12/22 22:47 Last Admin: 12/12/22 23:02 Dose: 1 bottle Documented By: PADMINI Vital Signs Vital signs: Vital Signs - 8 hr 12/12/22 20:40 12/12/22 20:53 12/12/22 21:56 Temperature 100 F H 100 F H Pulse Rate 114 H 98 H Respiratory Rate 22 Blood Pressure 118/66 103/67 Pulse Oximetry 98 98 Oxygen Delivery Method Room Air Room Air 12/12/22 22:03 Temperature 99.3 F Pulse Rate Respiratory Rate Blood Pressure Pulse Oximetry Oxygen Delivery Method MDM - URI/Sore Throat Lab Data Labs: Lab Results 12/12/22 Range/Units 20:55 SARS-CoV-2 (PCR) Positive H (Negative) [facility] Narrative Medical decision making narrative: [37] year old patient presents with multiple upper respiratory symptoms and home COVID test which is positive Multiple etiologies for patient's symptoms considered including, but not limited to: [COVID versus other] Prior Charts reviewed in our EMR Primary Historian: patient Labs reviewed and interpreted by myself: Imaging reviewed: Findings consistent with viral pneumonia Patient with COVID demonstrates no respiratory distress or need for supplemental oxygen, he is tolerating orals Patient's symptoms improved over duration of stay with above-stated therapies. Findings and discharge diagnosis discussed with patient/family followed by verbalization of understanding Return precautions discussed with patient/family whom verbalize understanding of diagnosis and plan Discharge Plan Departure Patient Disposition: Home Clinical Impression: COVID-19 Instructions: COVID-19 Activity Restrictions/Additional Instructions: *You have been diagnosed with [ COVID-19] *What to do: ?* per recommendations from the CDC and the [facility] Department of Health ?* stay home except to get medical care. ?Restrict activities outside your home, except for getting medical care. ?Do not go to work, school, or public areas. ?Avoid using public transportation, ride sharing, or taxis. ?* separate yourself from other people in your home. ?* call ahead before visiting your doctor ?* Wear a facemask ?* Cover your coughs and sneezes ?* Clean your hands often ?* Avoid sharing household items ?* Clean all high-touch services every day ?* Monitor your symptoms and seek prompt medical attention if your illness is worsening, particularly with difficulty in breathing. You may discontinue your isolation when: ?1. You have been fever-free for at least 24 hours without the use of fever reducing medication, AND ?2. Your symptoms are getting better, AND ?3. At least 5 days have passed since symptoms first appeared ?4. If you have fever, continue to stay home until fever resolves Individuals with laboratory confirmed COVID-19 who have not had any symptoms may discontinue home isolation when at least 5 days have passed since the date of their first COVID-19 diagnostic test and have had no subsequent illness You should notifiy any friends and family that have been in close contact *If up to date on COVID Vaccines, then they do not need to quarantine unless symptoms develop. Get tested on day 5 (or sooner if symptoms develop). Take precautions and watch for symptoms until day 10 *If NOT up to date on COVID Vaccines, then CDC recommends quarantine for at least 5 full days. Wear a well fitted mask at home if you must be around others. If they ?develop symptoms they should get tested. If they remain asymptomatic they should get tested on day 5. They should take precautions and monitor for symptoms until day 10. Prescriptions: No Action ondansetron HCl [Zofran] 4 mg tablet 4 mg PO Q6H PRN (Reason: nausea and vomiting) Qty: 5 0RF hydrocodone-acetaminophen 5-325 mg tablet 1 tab PO Q6H PRN (Reason: pain) Qty: 7 0RF ondansetron 4 mg tablet,disintegrating 4 mg PO Q8H PRN (Reason: nausea and vomiting) Qty: 10 0RF metoprolol tartrate 25 mg tablet 1 tab PO BID Patient Comments: not sure of date last taken...states was in November. cannot find medication. diphenhydramine-acetaminophen [Percogesic] 12.5-325 mg Tablet 1 tab PO PRN PRN (Reason: Headache) Unknown Night Medication 1 tab PO BEDTIME PRN (Reason: Migraine Headache) Patient Comments: patient misplaced medication. has not taken for some time. Written for by Dr. Harriet Palacios hydrocodone-acetaminophen [[place]] 5-325 mg tablet 1 tab PO Q4-6H PRN (Reason: pain) Qty: 10 0RF cyclobenzaprine 10 mg tablet 10 mg PO TID PRN (Reason: muscle spasm) Qty: 12 0RF hydrocodone-acetaminophen [[place]] 5-325 mg tablet 1 tab PO Q6H PRN (Reason: pain) Qty: 7 0RF ondansetron 4 mg tablet,disintegrating 4 mg PO Q6H PRN (Reason: nausea and vomiting) Qty: 20 0RF cyclobenzaprine 10 mg tablet 10 mg PO TID PRN (Reason: muscle spasm) Qty: 21 0RF ondansetron 4 mg tablet,disintegrating 4 mg PO Q8H PRN (Reason: nausea and vomiting) Qty: 14 0RF Referrals: Sylvia Huynh MD [Primary Care Provider] - Stand Alone Forms: Patient Portal/API
[2022-12-12 23:02] VITALS: BP 128/60; PULSE 87; RESP 16; O2SAT 98
[2022-12-12] MEDS: ONDANSETRON 4 MG ODT PREPACK 1 BOTTLE MISC (23:02)
== END 2022-12-12 23:07 | disposition home or self-care (01) ==
PROVIDERS: Emergency Provider Emergency Medicine; PCP Family Medicine
DX: U07.1 COVID-19 (principal); R11.2 Nausea with vomiting, unspecified
CPT/HCPCS: 71046; 87635; 99283; C9803

== ENCOUNTER 2023-04-13 23:52 | Emergency (ER) | payer SELFPAY ==
[2023-04-13 23:59] VITALS: BP 146/88; PULSE 75; RESP 18; TEMP 36.5; O2SAT 97; BMI 29.6
[2023-04-14 01:29] VITALS: O2SAT 96
[2023-04-14 01:30] VITALS: BP 148/72; PULSE 69; O2SAT 96
[2023-04-14] MEDS: SODIUM CHLORIDE 0.9% 1,000 ML 1000 ML IV (01:31)
[2023-04-14] MEDS: METOCLOPRAMIDE 10 MG/2 ML INJ IV (01:31)
[2023-04-14] MEDS: diphenhydrAMINE 50 MG/ML VIAL 25 MG IV (01:31)
--- NOTE | 2023-04-14 01:41 | ED.HA ---
HPI - Headache General Chief Complaint: Headache Stated Complaint: severe migraine Time Seen by Provider: 04/14/23 00:46 Source: patient Mode of arrival: Ambulatory Limitations: no limitations History of Present Illness HPI Narrative: Patient is a 37-year-old male. Has a history of migraines. Is here for 1 of his typical migraines. He states that it started at approximately 1000 hours this morning. Has a gradual onset. He states he took his normal migraine medications without any improvement. He did drink some caffeine which he states may have helped his headache somewhat but it is still present. He is having some photophobia. No fevers. Related Data Home Medications Medication Instructions Recorded Confirmed Unknown Night Medication 1 tab PO BEDTIME PRN Migraine 03/11/18 03/11/18 Headache diphenhydramine 12.5 1 tab PO PRN PRN Headache 03/11/18 03/11/18 mg-acetaminophen 325 mg tablet (Percogesic) metoprolol tartrate 25 mg tablet 1 tab PO BID 03/11/18 03/11/18 Previous Rx's Medication Instructions Recorded hydrocodone 5 mg-acetaminophen 325 1 tab PO Q4-6H PRN pain #10 tabs 12/21/ mg tablet ([place]) ondansetron HCl 4 mg tablet 4 mg PO Q6H PRN nausea and 12/06/19 (Zofran) vomiting #5 tabs cyclobenzaprine 10 mg tablet 10 mg PO TID PRN muscle spasm #12 12/10/19 tabs hydrocodone 5 mg-acetaminophen 325 1 tab PO Q6H PRN pain #7 tabs 12/09/ mg tablet ([place]) ondansetron 4 mg disintegrating 4 mg PO Q6H PRN nausea and 09/09/20 tablet vomiting #20 tabs hydrocodone 5 mg-acetaminophen 325 1 tab PO Q6H PRN pain #7 tabs 10/30/20 mg tablet ondansetron 4 mg disintegrating 4 mg PO Q8H PRN nausea and 10/30/20 tablet vomiting #10 tabs cyclobenzaprine 10 mg tablet 10 mg PO TID PRN muscle spasm #21 07/19/22 tabs ondansetron 4 mg disintegrating 4 mg PO Q8H PRN nausea and 09/20/22 tablet vomiting #14 tabs Allergies Allergy/AdvReac Type Severity Reaction Status Date / Time amoxicillin Allergy Verified 05/16/20 19:50 Review of Systems Constitutional Constitutional: Reports system reviewed and no additional complaints, except as documented Eyes Eyes: Reports system reviewed and no additional complaints, except as documented ENT Ears, Nose, Mouth, and Throat: Reports system reviewed and no additional complaints, except as documented Integumentary/Breasts Skin/Breast: Reports system reviewed and no additional complaints, except as documented Neurologic Neurologic: Reports system reviewed and no additional complaints, except as documented Hematologic/Lymphatic On Anticoagulants: No Patient History Medical History (Updated 04/14/23 @ 02:32 by Neo Galaviz DO) Chronic back pain Chronic daily headache History of multiple concussions Migraine headache Tendinitis Surgical History Hx of tympanostomy tubes Social History Smoking Status: Current every day smoker Tobacco: How many years used: 20 alcohol intake: current substance use type: marijuana Smoking Status: Current every day smoker tobacco type: cigarettes alcohol intake frequency: a few times a month Substance Use Type: marijuana Exam Initial Vital Signs Initial Vital Signs: Vital Signs Temperature 97.7 F 04/13/23 23:59 Pulse Rate 75 04/13/23 23:59 Respiratory Rate 18 04/13/23 23:59 Blood Pressure 146/88 H 04/13/23 23:59 Pulse Oximetry 97 04/13/23 23:59 Oxygen Delivery Method Room Air 04/13/23 23:59 HENMT Head: normal to inspection and normocephalic Resp Effort & Inspection: normal respiratory effort Cardio Rate: regular rate Rhythm: regular rhythm GI Inspection: normal to inspection Skin General: no rashes or lesions noted Neuro General: patient alert, patient awake, patient oriented x3 and moves all extremities Course Orders Ordered: Discontinued Medications Diphenhydramine HCl (Diphenhydramine 50 Mg/Ml Vial) 25 mg IV NOW ONE Stop: 04/14/23 01:14 Last Admin: 04/14/23 01:31 Dose: 25 mg Documented By: OW Sodium Chloride (Normal Saline 0.9%) 1,000 mls @ 1,000 mls/hr IV BOLUS ONE Stop: 04/14/23 02:12 Last Infusion: 04/14/23 02:21 Dose: 0 mls/hr Documented By: Admin: 04/14/23 01:31 Dose: 1,000 mls/hr Documented By: FRANK Metoclopramide HCl (Metoclopramide 10 Mg/2 Ml Inj) 10 mg IV NOW ONE Stop: 04/14/23 01:14 Last Admin: 04/14/23 01:31 Dose: 10 mg Documented By: FRANK Vital Signs Vital signs: Vital Signs - 8 hr 04/13/23 23:59 04/14/23 01:29 04/14/23 01:30 Temperature 97.7 F Pulse Rate 75 Respiratory Rate 18 Blood Pressure 146/88 H 148/72 H Pulse Oximetry 97 96 Oxygen Delivery Method Room Air 04/14/23 01:30 04/14/23 02:00 04/14/23 02:00 Temperature Pulse Rate 69 59 L Respiratory Rate Blood Pressure 125/72 Pulse Oximetry 96 96 Oxygen Delivery Method MDM - Headache Medical Records Attestation: I reviewed the patient's medical records. [facility] Narrative Medical decision making narrative: Patient states he feels much better after the above therapies. Low suspicion for meningitis. Low suspicion for acute intra cranial bleed. Will hold on any radiologic studies. Will discharge patient home with instructions to continue to take all of his medications as directed. He can return to the emergency department for new or worsening symptoms. Discharge Plan Departure Patient Disposition: Home Clinical Impression: Migraine Instructions: DI for Migraine Activity Restrictions/Additional Instructions: Recommend that you continue to take all of your medications as directed. Contact your primary doctor for follow-up. Return to the emergency department for new or worsening symptoms. Prescriptions: No Action ondansetron HCl [Zofran] 4 mg tablet 4 mg PO Q6H PRN (Reason: nausea and vomiting) Qty: 5 0RF hydrocodone-acetaminophen 5-325 mg tablet 1 tab PO Q6H PRN (Reason: pain) Qty: 7 0RF ondansetron 4 mg tablet,disintegrating 4 mg PO Q8H PRN (Reason: nausea and vomiting) Qty: 10 0RF metoprolol tartrate 25 mg tablet 1 tab PO BID Patient Comments: not sure of date last taken...states was in November. cannot find medication. diphenhydramine-acetaminophen [Percogesic] 12.5-325 mg Tablet 1 tab PO PRN PRN (Reason: Headache) Unknown Night Medication 1 tab PO BEDTIME PRN (Reason: Migraine Headache) Patient Comments: patient misplaced medication. has not taken for some time. Written for by Dr. Harriet Palacios hydrocodone-acetaminophen [[place]] 5-325 mg tablet 1 tab PO Q4-6H PRN (Reason: pain) Qty: 10 0RF cyclobenzaprine 10 mg tablet 10 mg PO TID PRN (Reason: muscle spasm) Qty: 12 0RF hydrocodone-acetaminophen [[place]] 5-325 mg tablet 1 tab PO Q6H PRN (Reason: pain) Qty: 7 0RF ondansetron 4 mg tablet,disintegrating 4 mg PO Q6H PRN (Reason: nausea and vomiting) Qty: 20 0RF cyclobenzaprine 10 mg tablet 10 mg PO TID PRN (Reason: muscle spasm) Qty: 21 0RF ondansetron 4 mg tablet,disintegrating 4 mg PO Q8H PRN (Reason: nausea and vomiting) Qty: 14 0RF Referrals: Sylvia Huynh MD [Primary Care Provider] - Stand Alone Forms: Patient Portal/API
[2023-04-14 02:00] VITALS: BP 125/72; PULSE 59; O2SAT 96
== END 2023-04-14 02:39 | disposition home or self-care (01) ==
PROVIDERS: Emergency Provider Emergency Medicine; PCP Family Medicine
DX: G43.909 Migraine, unspecified, not intractable, without status migrainosus (principal)
CPT/HCPCS: 36415; 96361; 96374; 96375; 99284; J1200; J2765

== ENCOUNTER 2024-01-22 18:55 | Emergency (ER) | payer BC, OTHER, SELFPAY ==
[2024-01-22 19:03] VITALS: BP 131/78; PULSE 100; O2SAT 95
[2024-01-22 19:08] VITALS: BP 131/78; PULSE 102; RESP 18; TEMP 36.6; O2SAT 95; BMI 31.9
[2024-01-22 19:26] VITALS: PULSE 78
--- NOTE | 2024-01-22 19:32 | DI.RAD.S_ITS ---
PROCEDURE: XR FINGER LT MIN 2V INDICATIONS: Saw cut to upper pointer TECHNIQUE: AP hand, 2 views of the 2nd distal finger acquired. COMPARISON: [facility], CR, XR FINGER RT MIN 2V, 02/25/2020, 21:01. FINDINGS: Bones: No fractures or dislocations. No suspicious bony lesions. Soft tissues: No suspicious soft tissue calcifications. IMPRESSION: No acute bony abnormality. Mild soft tissue irregularity over the distal 2nd digit without fracture or foreign body seen. Dictated by: Cruz Strong M.D. on 01/22/2024 at 20:20 Approved by: Cruz Strong M.D. on 01/22/2024 at 20:21
[2024-01-22] MEDS: TET,DIPH,PERTUSS(ACELL),VAC/PF 0.5 ML SYRINGE IM (19:48)
--- NOTE | 2024-01-22 21:06 | ED.UPPEXIN ---
HPI - Extremity Injury (Upper) General Chief Complaint: Extremity Injury, Upper Stated Complaint: finger injury with sawblade Time Seen by Provider: 01/22/24 20:58 Source: patient Mode of arrival: Ambulatory History of Present Illness HPI narrative: Patient is a 38-year-old male who presents today with left index finger injury. He reports that he is finishing his daughter's nursery when he nicked it with a circular saw not on antiplatelet or anticoagulation medication. Tetanus is up-to-date. Related Data Home Medications Medication Instructions Recorded Confirmed Unknown Night Medication 1 tab PO BEDTIME PRN Migraine 03/11/18 03/11/18 Headache diphenhydramine 12.5 1 tab PO PRN PRN Headache 03/11/18 03/11/18 mg-acetaminophen 325 mg tablet (Percogesic) metoprolol tartrate 25 mg tablet 1 tab PO BID 03/11/18 03/11/18 Previous Rx's Medication Instructions Recorded hydrocodone 5 mg-acetaminophen 325 1 tab PO Q4-6H PRN pain #10 tabs 12/21/18 mg tablet ([place]) ondansetron HCl 4 mg tablet 4 mg PO Q6H PRN nausea and 12/06/19 (Zofran) vomiting #5 tabs cyclobenzaprine 10 mg tablet 10 mg PO TID PRN muscle spasm #12 12/10/19 tabs hydrocodone 5 mg-acetaminophen 325 1 tab PO Q6H PRN pain #7 tabs 12/09/ mg tablet ([place]) ondansetron 4 mg disintegrating 4 mg PO Q6H PRN nausea and 09/09/20 tablet vomiting #20 tabs hydrocodone 5 mg-acetaminophen 325 1 tab PO Q6H PRN pain #7 tabs 10/30/20 mg tablet ondansetron 4 mg disintegrating 4 mg PO Q8H PRN nausea and 10/30/20 tablet vomiting #10 tabs cyclobenzaprine 10 mg tablet 10 mg PO TID PRN muscle spasm #21 07/19/22 tabs ondansetron 4 mg disintegrating 4 mg PO Q8H PRN nausea and 09/20/22 tablet vomiting #14 tabs Allergies Allergy/AdvReac Type Severity Reaction Status Date / Time amoxicillin Allergy Verified 05/16/20 19:50 Patient History Medical History (Updated 01/22/24 @ 21:14 by Marysol Vazquez DO) Tendinitis Chronic back pain History of multiple concussions Chronic daily headache Migraine headache Surgical History Hx of tympanostomy tubes Social History Smoking Status: Current every day smoker Tobacco: How many years used: 20 alcohol intake: current substance use type: marijuana Smoking Status: Current every day smoker tobacco type: cigarettes alcohol intake frequency: a few times a month Substance Use Type: marijuana Exam Initial Vital Signs Initial Vital Signs: Vital Signs Pulse Rate 100 H 01/22/24 19:03 Blood Pressure 131/78 01/22/24 19:03 Pulse Oximetry 95 01/22/24 19:03 GENERAL: Well-appearing, well-nourished and in no acute distress. CARDIOVASCULAR: peripheral pulses in tact, cap refill <2 sec RESPIRATORY: No respiratory distress, speaks in full sentences without difficulty EXTREMITIES: Normal range of motion, no clubbing or edema. Neurovascularly intact NEUROLOGICAL: Cranial nerves II through XII grossly intact. Normal gait and speech. SKIN: Left index finger distal tip laceration. On the palmar side no significant avulsion no bony involvement no nail bed involvement Course Orders Ordered: ED Orders 01/22/24 19:32 XR finger LT min 2V Stat Discontinued Medications Diphtheria/Tetanus/Acell Pertussis (Tet,Diph,Pertuss(Acell),Vac/Pf 0.5 Ml Syringe) 0.5 ml IM .ONCE ONE Stop: 01/22/24 19:34 Last Admin: 01/22/24 19:48 Dose: 0.5 ml Documented By: POOJA Vital Signs Vital signs: Vital Signs - 8 hr 01/22/24 19:03 01/22/24 19:03 01/22/24 19:08 Temperature 97.8 F Pulse Rate 100 H 102 H Pulse Rate [Left Radial] Respiratory Rate 18 Blood Pressure 131/78 131/78 Pulse Oximetry 95 95 Oxygen Delivery Method Room Air 01/22/24 19:26 01/22/24 21:32 Temperature Pulse Rate Pulse Rate [Left Radial] 78 Respiratory Rate Blood Pressure Pulse Oximetry Oxygen Delivery Method Room Air MDM - Extremity Injury (Upper) Imaging Data Extremity x-ray #1: Radiologist's Impression: PROCEDURE: XR FINGER LT MIN 2V INDICATIONS: Saw cut to upper pointer TECHNIQUE: AP hand, 2 views of the 2nd distal finger acquired. COMPARISON: [facility], CR, XR FINGER RT MIN 2V, 02/25/2020, 21:01. FINDINGS: Bones: No fractures or dislocations. No suspicious bony lesions. Soft tissues: No suspicious soft tissue calcifications. IMPRESSION: No acute bony abnormality. Mild soft tissue irregularity over the distal 2nd digit without fracture or foreign body seen. Dictated by: Cruz Strong M.D. on 01/22/2024 at 20:20 [facility] Narrative Medical decision making narrative: Patient 38-year-old male presents today with left index finger laceration from a circular saw. Small laceration not suturable. Dressing placed, supportive care only. X-ray has been reviewed and negative for fracture Discharge Plan Departure Patient Disposition: Home Clinical Impression: Laceration of blood vessel of left index finger Instructions: DI for Avulsion Laceration (Not Requiring Sutures) Activity Restrictions/Additional Instructions: *You have been diagnosed with avulsion laceration *What to do: At this time keep covered. Please clean with soap and water. *Continue to take medications as directed Tylenol Motrin as needed for pain *Follow up with your primary care provider in 2-3 days or call [phone] *Return to ER if you should have increasing redness swelling pain or any new, worsening or concerning symptoms Prescriptions: No Action ondansetron HCl [Zofran] 4 mg tablet 4 mg PO Q6H PRN (Reason: nausea and vomiting) Qty: 5 0RF hydrocodone-acetaminophen 5-325 mg tablet 1 tab PO Q6H PRN (Reason: pain) Qty: 7 0RF ondansetron 4 mg tablet,disintegrating 4 mg PO Q8H PRN (Reason: nausea and vomiting) Qty: 10 0RF metoprolol tartrate 25 mg tablet 1 tab PO BID Patient Comments: not sure of date last taken...states was in November. cannot find medication. diphenhydramine-acetaminophen [Percogesic] 12.5-325 mg Tablet 1 tab PO PRN PRN (Reason: Headache) Unknown Night Medication 1 tab PO BEDTIME PRN (Reason: Migraine Headache) Patient Comments: patient misplaced medication. has not taken for some time. Written for by Dr. aHrriet Palacios hydrocodone-acetaminophen [[place]] 5-325 mg tablet 1 tab PO Q4-6H PRN (Reason: pain) Qty: 10 0RF cyclobenzaprine 10 mg tablet 10 mg PO TID PRN (Reason: muscle spasm) Qty: 12 0RF hydrocodone-acetaminophen [[place]] 5-325 mg tablet 1 tab PO Q6H PRN (Reason: pain) Qty: 7 0RF ondansetron 4 mg tablet,disintegrating 4 mg PO Q6H PRN (Reason: nausea and vomiting) Qty: 20 0RF cyclobenzaprine 10 mg tablet 10 mg PO TID PRN (Reason: muscle spasm) Qty: 21 0RF ondansetron 4 mg tablet,disintegrating 4 mg PO Q8H PRN (Reason: nausea and vomiting) Qty: 14 0RF Referrals: Sylvia Huynh MD [Primary Care Provider] - Stand Alone Forms: Patient Portal/API
== END 2024-01-22 21:36 | disposition home or self-care (01) ==
PROVIDERS: Emergency Provider Emergency Medicine; PCP Family Medicine
DX: S61.211A Laceration without foreign body of left index finger without damage to nail, initial encounter (principal); W27.0XXA Contact with workbench tool, initial encounter; Y93.H3 Activity, building and construction; Y92.003 Bedroom of unspecified non-institutional (private) residence as the place of occurrence of the external cause; Z23 Encounter for immunization
CPT/HCPCS: 73140; 90471; 99283; 90715

== ENCOUNTER 2024-10-16 12:47 | Emergency (ER) | payer BC, SELFPAY ==
[2024-10-16 12:57] VITALS: BP 152/102; PULSE 90; RESP 16; TEMP 36.6; O2SAT 96; BMI 32.6
--- NOTE | 2024-10-16 14:20 | ED_ITS ---
HPI - Extremity Injury (Upper) <Roger Amador PA-C - Last Filed: 10/16/24 16:43> General Chief Complaint: Extremity Injury, Upper Stated Complaint: left arm px seen at [facility] x1 day now numb Time Seen by Provider: 10/16/24 14:18 Source: patient Mode of arrival: Ambulatory History of Present Illness HPI narrative: 39-year-old male with no reported past medical history presents to the ED with 2 days of left-sided shoulder pain. Patient states that he was lifting his daughter yesterday, when he felt pain in the left shoulder. Patient was seen in the walk-in clinic this morning, given ketorolac. Patient states that when he returned home and tried to take off his jacket, he felt a pop and his pain has worsened since then. Patient denies numbness, tingling, weakness. Patient endorses pain with right arm movement. Localizes the pain to the left shoulder. Related Data Home Medications Medication Instructions Recorded Confirmed Unknown Night Medication 1 tab PO BEDTIME PRN Migraine 03/11/18 03/11/18 Headache diphenhydramine 12.5 1 tab PO PRN PRN Headache 03/11/18 03/11/18 mg-acetaminophen 325 mg tablet (Percoges[employer]) metoprolol tartrate 25 mg tablet 1 tab PO BID 03/11/18 03/11/18 Previous Rx's Medication Instructions Recorded hydrocodone 5 mg-acetaminophen 325 1 tab PO Q4-6H PRN pain #10 tabs 12/21/ mg tablet ([place]) ondansetron HCl 4 mg tablet 4 mg PO Q6H PRN nausea and 12/06/19 (Zofran) vomiting #5 tabs cyclobenzaprine 10 mg tablet 10 mg PO TID PRN muscle spasm #12 12/10/19 tabs hydrocodone 5 mg-acetaminophen 325 1 tab PO Q6H PRN pain #7 tabs 12/10/19 mg tablet ([place]) ondansetron 4 mg disintegrating 4 mg PO Q6H PRN nausea and 09/09/20 tablet vomiting #20 tabs hydrocodone 5 mg-acetaminophen 325 1 tab PO Q6H PRN pain #7 tabs 10/30/20 mg tablet ondansetron 4 mg disintegrating 4 mg PO Q8H PRN nausea and 10/30/20 tablet vomiting #10 tabs cyclobenzaprine 10 mg tablet 10 mg PO TID PRN muscle spasm #21 07/19/22 tabs ondansetron 4 mg disintegrating 4 mg PO Q8H PRN nausea and 09/20/22 tablet vomiting #14 tabs Allergies Allergy/AdvReac Type Severity Reaction Status Date / Time amoxicillin Allergy Verified 10/16/24 13:00 Review of Systems <Roger Amador PA-C - Last Filed: 10/16/24 16:43> Constitutional Constitutional: Denies chills, Denies fatigue, Denies fever(s), Denies frequent falls, Denies lethargy and Denies weakness Eyes Eyes: Denies change in vision, Denies eye discharge, Denies irritation and Denies loss of vision ENT Ears, Nose, Mouth, and Throat: Denies change in voice, Denies dizziness, Denies neck pain, Denies sore throat and Denies throat swelling Cardiovascular Cardiovascular: Denies chest pain, Denies irregular heart rhythm, Denies lightheadedness, Denies palpitations, Denies dyspnea, Denies dyspnea on exertion and Denies orthopnea Respiratory Respiratory: Denies cough, Denies dyspnea, Denies dyspnea on exertion and Denies wheezing Gastrointestinal Gastrointestinal: Denies abdominal pain, Denies change in bowel habits, Denies diarrhea, Denies nausea and Denies vomiting Musculoskeletal Musculoskeletal: Denies neck pain and Denies numbness Comments: Left shoulder pain Integumentary/Breasts Skin/Breast: Denies pruritus, Denies erythema, Denies rash and Denies wounds Neurologic Neurologic: Denies behavioral changes, Denies confusion, Denies dizziness, Denies frequent falls, Denies loss of vision, Denies numbness and Denies weakness Psychiatric Psychiatric: Denies anxiety, Denies behavioral changes, Denies confusion, Denies depression, Denies homicidal ideation and Denies suicidal ideation Endocrine Endocrine: Denies fatigue, Denies flushing and Denies palpitations Hematologic/Lymphatic Hematologic/Lymphatic: Denies easy bruising Allergic/Immunologic Allergic/Immunologic: Denies urticaria, Denies throat swelling and Denies wheezing Patient History <Roger Amador PA-C - Last Filed: 10/16/24 16:43> Medical History (Updated 10/16/24 @ 16:35 by Roger Amador PA-C) Tendinitis Chronic back pain History of multiple concussions Chronic daily headache Migraine headache Surgical History Hx of tympanostomy tubes Social History Smoking Status: Current every day smoker Tobacco: How many years used: 20 alcohol intake: current substance use type: marijuana Smoking Status: Current every day smoker tobacco type: cigarettes alcohol intake frequency: a few times a month Exam <Roger Amador PA-C - Last Filed: 10/16/24 16:43> Narrative Exam Narrative: Const General:?cooperative, healthy appearing and comfortable [facility] Head:?normal to inspection Ears:?hearing grossly normal bilaterally Nose:?external nose normal Face and sinus:?normal facial exam and sinuses nontender Mouth:?oral mucosae normal Throat:?posterior oropharynx normal Eyes General:?appearance normal, both eyes and all related structures Neck Neck:?normal visual inspection and no lymphadenopathy noted Resp Effort & Inspection:?normal respiratory effort Auscultation:?clear to auscultation bilaterally Cardio Rate:?regular rate Rhythm:?regular rhythm Musculoskeletal No bony tenderness to palpation. There is some tenderness to soft tissues around the left shoulder. No bruising, deformities. There is full range of motion, although range of motion is somewhat limited by pain. Strength and sensation is intact. Patient is neurovascularly intact. Neuro General:?patient alert, patient awake and patient oriented x3 Initial Vital Signs Initial Vital Signs: Vital Signs Temperature 98 F 10/16/24 12:57 Pulse Rate 90 10/16/24 12:57 Respiratory Rate 16 10/16/24 12:57 Blood Pressure 152/102 H 10/16/24 12:57 Pulse Oximetry 96 10/16/24 12:57 Oxygen Delivery Method Room Air 10/16/24 12:57 <Marysol Vazquez DO - Last Filed: 10/20/24 09:14> Initial Vital Signs Initial Vital Signs: Vital Signs Temperature 98 F 10/16/24 12:57 Pulse Rate 90 10/16/24 12:57 Respiratory Rate 16 10/16/24 12:57 Blood Pressure 152/102 H 10/16/24 12:57 Pulse Oximetry 96 10/16/24 12:57 Oxygen Delivery Method Room Air 10/16/24 12:57 Course <Roger Amador PA-C - Last Filed: 10/16/24 16:43> Orders Ordered: ED Orders 10/16/24 14:56 XR shoulder LT min 2V Stat Vital Signs Vital signs: Vital Signs - 8 hr 10/16/24 12:57 Temperature 98 F Pulse Rate 90 Respiratory Rate 16 Blood Pressure 152/102 H Pulse Oximetry 96 Oxygen Delivery Method Room Air <Marysol Vazquez DO - Last Filed: 10/20/24 09:14> Orders Ordered: ED Orders 10/16/24 14:56 XR shoulder LT min 2V Stat Vital Signs Vital signs: Vital Signs - 8 hr 10/16/24 12:57 Temperature 98 F Pulse Rate 90 Respiratory Rate 16 Blood Pressure 152/102 H Pulse Oximetry 96 Oxygen Delivery Method Room Air MDM - Extremity Injury (Upper) <Roger Amador PA-C - Last Filed: 10/16/24 16:43> MDM Narrative Medical decision making narrative: 39-year-old male with no reported past medical history presents to the ED with 2 days of left-sided shoulder pain. Concern for fracture/dislocation versus musculoskeletal sprain/strain versus other. Will obtain x-ray. Will reassess. X-ray without acute findings. Patient's symptoms likely due to musculoskeletal sprain/strain of the shoulder. Recommend heat packs, lidocaine patches, sling, Tylenol, ibuprofen. Recommend follow-up with PCP as soon as possible. ED return precautions discussed with patient. Patient verbalized understanding. Medical records reviewed: Yes Discharge Plan Departure Patient Disposition: Home Clinical Impression: Shoulder sprain Qualifiers: Encounter type: initial encounter Shoulder sprain type: unspecified sprain Laterality: left Qualified Code(s): S43.402A - Unspecified sprain of left shoulder joint, initial encounter Instructions: DI for Shoulder Sprain Activity Restrictions/Additional Instructions: You were evaluated in the ED today for a shoulder injury. Your x-ray did not show any fractures or dislocations. Your symptoms are likely due to a musculoskeletal sprain/strain of the shoulder. You may apply heat packs, lidocaine patches, continue to wear the sling for comfort. You may take 600-800 mg of ibuprofen every 8 hours with food. You may also take 1000 mg of Tylenol every 8 hours. Please follow-up with your PCP as soon as possible. Return to the ED if you have worsening symptoms, numbness, tingling, weakness. Prescriptions: No Action ondansetron HCl [Zofran] 4 mg tablet 4 mg PO Q6H PRN (Reason: nausea and vomiting) Qty: 5 0RF hydrocodone-acetaminophen 5-325 mg tablet 1 tab PO Q6H PRN (Reason: pain) Qty: 7 0RF ondansetron 4 mg tablet,disintegrating 4 mg PO Q8H PRN (Reason: nausea and vomiting) Qty: 10 0RF metoprolol tartrate 25 mg tablet 1 tab PO BID Patient Comments: not sure of date last taken...states was in November. cannot find medication. diphenhydramine-acetaminophen [Percogesic] 12.5-325 mg Tablet 1 tab PO PRN PRN (Reason: Headache) Unknown Night Medication 1 tab PO BEDTIME PRN (Reason: Migraine Headache) Patient Comments: patient misplaced medication. has not taken for some time. Written for by Dr. Harriet Palacios hydrocodone-acetaminophen [[place]] 5-325 mg tablet 1 tab PO Q4-6H PRN (Reason: pain) Qty: 10 0RF cyclobenzaprine 10 mg tablet 10 mg PO TID PRN (Reason: muscle spasm) Qty: 12 0RF hydrocodone-acetaminophen [[place]] 5-325 mg tablet 1 tab PO Q6H PRN (Reason: pain) Qty: 7 0RF ondansetron 4 mg tablet,disintegrating 4 mg PO Q6H PRN (Reason: nausea and vomiting) Qty: 20 0RF cyclobenzaprine 10 mg tablet 10 mg PO TID PRN (Reason: muscle spasm) Qty: 21 0RF ondansetron 4 mg tablet,disintegrating 4 mg PO Q8H PRN (Reason: nausea and vomiting) Qty: 14 0RF Referrals: Sylvia Huynh MD [Primary Care Provider] - Stand Alone Forms: Patient Portal/API/Survey, Work Release Note ED Sign-out <Marysol Vazquez DO - Last Filed: 10/20/24 09:14> Cosign ED Attending Khurramature Attestation: I was available for consultation.
--- NOTE | 2024-10-16 14:56 | DI.RAD.S_ITS ---
PROCEDURE: XR SHOULDER LT MIN 2V INDICATIONS: left shoulder pain TECHNIQUE: 3 views of the shoulder were acquired. COMPARISON: None. FINDINGS: Bones: No fractures or dislocations. No suspicious bony lesions. Visualized ribs appear intact. Soft tissues: No suspicious soft tissue calcifications. IMPRESSION: No acute osseous abnormality. If pain persists with conservative management, consider repeat x-ray in 10-14 days or cross-sectional imaging. Dictated by: Willam Monreal M.D. on 10/16/2024 at 15:52 Approved by: Willam Monreal M.D. on 10/16/2024 at 15:52
[2024-10-16 17:14] VITALS: BP 120/68; PULSE 65; RESP 16; O2SAT 98
== END 2024-10-16 17:18 | disposition home or self-care (01) ==
PROVIDERS: Emergency Provider Student in an Organized Health Care Education/Training Program; PCP Family Medicine
DX: S43.402A Unspecified sprain of left shoulder joint, initial encounter (principal); X58.XXXA Exposure to other specified factors, initial encounter
CPT/HCPCS: 73030; 99282; 99283

== ENCOUNTER 2025-08-02 15:17 | Emergency (ER) | payer BC, SELFPAY ==
[2025-08-02 15:20] VITALS: BP 153/86; PULSE 82; RESP 16; TEMP 37.1; O2SAT 97; BMI 28.8
--- NOTE | 2025-08-02 15:31 | DI.CT.S_ITS ---
PROCEDURE: CT ABDOMEN PELVIS W CON
--- NOTE | 2025-08-02 15:32 | ED_ITS ---
HPI - Abdominal Pain
--- NOTE | 2025-08-02 15:32 | ED.ABDPAIN ---
HPI - Abdominal Pain General Chief Complaint: Abdominal Pain Stated Complaint: Stomach issues, loss of appetite, PC ref Time Seen by Provider: 08/02/25 15:31 History of Present Illness HPI narrative: 40-year-old gentleman with no significant past medical history presents with left lower quadrant pain for 3 days along with decreased appetite and nausea for which he denies vomiting, diarrhea, constipation, rectal bleeding, urinary complaints, back pain, hematuria, chest pain, or shortness of breath. Nothing makes it better or worse. He does use marijuana. Other than what is stated 14 point review of system is negative. Related Data Home Medications ?Medication ?Instructions ?Recorded ?Confirmed Unknown Night Medication 1 tab PO BEDTIME PRN Migraine 03/11/18 03/11/18 Headache diphenhydramine 12.5 1 tab PO PRN PRN Headache 03/11/18 03/11/18 mg-acetaminophen 325 mg tablet ([place]) metoprolol tartrate 25 mg tablet 1 tab PO BID 03/11/18 03/11/18 Previous Rx's ?Medication ?Instructions ?Recorded hydrocodone 5 mg-acetaminophen 325 1 tab PO Q4-6H PRN pain #10 tabs 12/21/ mg tablet ([employer]) ondansetron HCl 4 mg tablet 4 mg PO Q6H PRN nausea and 12/06/19 (Zofran) vomiting #5 tabs cyclobenzaprine 10 mg tablet 10 mg PO TID PRN muscle spasm #12 12/10/19 tabs hydrocodone 5 mg-acetaminophen 325 1 tab PO Q6H PRN pain #7 tabs 12/09/ mg tablet ([employer]) ondansetron 4 mg disintegrating 4 mg PO Q6H PRN nausea and 09/09/20 tablet vomiting #20 tabs hydrocodone 5 mg-acetaminophen 325 1 tab PO Q6H PRN pain #7 tabs 10/30/20 mg tablet ondansetron 4 mg disintegrating 4 mg PO Q8H PRN nausea and 10/30/20 tablet vomiting #10 tabs cyclobenzaprine 10 mg tablet 10 mg PO TID PRN muscle spasm #21 07/19/22 tabs ondansetron 4 mg disintegrating 4 mg PO Q8H PRN nausea and 09/20/22 tablet vomiting #14 tabs ondansetron HCl 4 mg tablet 4 mg PO Q6H PRN nausea and 08/02/25 vomiting #30 tabs Allergies Allergy/AdvReac Type Severity Reaction Status Date / Time amoxicillin Allergy Verified 10/16/24 13:00 Review of Systems Review of Systems ROS Unobtainable: All systems reviewed & are unremarkable except as noted in HPI and below Patient History Medical History (Updated 08/02/25 @ 17:29 by Austin Lopez, DO) Tendinitis Chronic back pain History of multiple concussions Chronic daily headache Migraine headache Surgical History Hx of tympanostomy tubes Social History Tobacco: How many years used: 20 alcohol intake: current substance use type: marijuana tobacco type: cigarettes alcohol intake frequency: a few times a month Exam Narrative Exam Narrative: GENERAL: [40] year old patient appears stated age. Well-developed patient, in mild distress. HEAD: Atraumatic. Normocephalic. EYES: Pupils equal round and reactive. Extraocular motions intact. No scleral icterus. No injection or drainage. NECK: Trachea midline. Non tender CARDIOVASCULAR: Regular rate and rhythm without murmurs, gallops, or rubs. RESPIRATORY: Clear to auscultation. Breath sounds equal bilaterally. No wheezes, rales, or rhonchi. GASTROINTESTINAL: Abdomen soft, LLQ TTP no r/r/g nondistended. EXTREMITIES: No edema or joint tenderness. BACK: Nontender without deformity or crepitance. No flank tenderness. NEURO: AOx3. SKIN: No rash or erythema of visible areas Initial Vital Signs Initial Vital Signs: Vital Signs Temperature 98.8 F 08/02/25 15:20 Pulse Rate 82 08/02/25 15:20 Respiratory Rate 16 08/02/25 15:20 Blood Pressure 153/86 H 08/02/25 15:20 Pulse Oximetry 97 08/02/25 15:20 Oxygen Delivery Method Room Air 08/02/25 15:20 Course Orders Ordered: ED Orders 08/02/25 15:27 Complete Blood Count AUTO DIFF Stat Comprehensive Metabolic Panel Stat Lipase Stat 08/02/25 15:31 CT abdomen pelvis w con Stat 08/02/25 17:35 Urine Culture Stat Urine Microscopic Stat Discontinued Medications Lactated Ringer's (Lactated Ringers) 1,000 mls @ 1,000 mls/hr IV BOLUS ONE Stop: 08/02/25 16:31 Last Infusion: 08/02/25 17:38 Dose: Infused Documented By: Admin: 08/02/25 17:05 Dose: 1,000 mls/hr Documented By: ABBI Ketorolac Tromethamine (Ketorolac 30 Mg/Ml Vial) 15 mg IV NOW ONE Stop: 08/02/25 15:33 Last Admin: 08/02/25 15:39 Dose: 15 mg Documented By: YINA Ondansetron HCl (Ondansetron 4 Mg/2 Ml Inj) 4 mg IV NOW PRN PRN Reason: Nausea And Vomiting Ondansetron HCl (Ondansetron 4 Mg Odt) 4 mg PO NOW PRN PRN Reason: Nausea And Vomiting Vital Signs Vital signs: Vital Signs - 8 hr 08/02/25 15:20 Temperature 98.8 F Pulse Rate 82 Respiratory Rate 16 Blood Pressure 153/86 H Pulse Oximetry 97 Oxygen Delivery Method Room Air MDM - Abdominal Pain Lab Data 08/02/25 15:27 08/02/25 15:27 Labs: Lab Results 08/02/25 08/02/25 Range/Units 15:27 17:35 WBC 9.1 (4.5-11.0) X10^3/uL RBC 5.63 (4.5-5.9) X10^6/uL Hgb 17.3 (13.5-17.5) g/dL Hct 48.7 (41-53) % MCV 86.5 (80-100) fL MCH 30.8 (26-34) PG MCHC 35.6 (30-36) % RDW 13.2 (11.6-14.8) % Plt Count 273 (150-400) X10^3/uL Neut % (Auto) 61.5 (50-75) % Lymph % (Auto) 23.5 L (25-40) % [place] % (Auto) 6.0 (3-14) % Eos % (Auto) 8.1 H (2-4) % Baso % (Auto) 0.9 (0-2) % Neut # (Auto) 5600 (0292-1605) /uL Lymph # (Auto) 2100 (0648-6127) /uL [place] # (Auto) 500 (0-900) /uL Eos # (Auto) 700 H (0-450) /uL Baso # (Auto) 100 (0-100) /uL Sodium 140 (137-145) mmol/L Potassium 3.7 (3.4-5.1) mmol/L Chloride 104 (98-107) mmol/L Carbon Dioxide 26 (22-32) mmol/L BUN 10 (9-20) mg/dL Creatinine 0.92 (0.66-1.25) mg/dL Estimated GFR > 60 (>60) mL/min BUN/Creatinine Ratio 10.9 (6-22) Glucose 95 (70-99) mg/dL Calcium 9.4 (8.4-10.2) mg/dL Total Bilirubin 0.4 (0.2-1.3) mg/dL AST 30 (17-59) IU/L ALT 24 (<50) IU/L Alkaline Phosphatase 48 (38-126) U/L Total Protein 8.2 (6.3-8.2) g/dL Albumin 5.2 H (3.5-5.0) g/dL Globulin 3.0 (1.7-4.1) g/dL Albumin/Globulin Ratio 1.7 (1.0-2.8) Lipase 60 (23-300) U/L Urine RBC None seen (0-5/HPF) Urine WBC 0-1/hpf (0-5/HPF) Ur Squamous Epith Cells 0-1 /hpf (0-5/HPF) Urine Bacteria None seen (None) Vol Urine Centrifuged 10ml (spun) Point of care testing: Urine Dip Bedside Urine Glucose Negative Bedside Urine Bilirubin - Negative Bedside Urine Ketone - Negative Urine Specific [place] 1.005 Bedside Urine Occult Blood - Negative Bedside Urine pH 7.5 Bedside Urine Protein +/- 15 Bedside Urine Urobilinogen - Negative Bedside Urine Nitrite - Negative Bedside Urine Leukocytes - Negative Esterase Imaging Data CT scan - abdomen/pelvis: Radiologist's Impression: [address] [address] [address] Scan Report Signed Patient: Andrzej Kirkland MR#: [id number] : 1985 Acct:[id number] Age/Sex: 40 / M Date of Service: 08/02/25 Loc: ED Accession Number: [id number] Procedure: CT abdomen pelvis w con Ordering Provider: Austin Lopez D.O. PROCEDURE: CT ABDOMEN PELVIS W CON INDICATIONS: abd pain TECHNIQUE: After the administration of intravenous contrast, axial sections acquired from the lung bases to the pubic symphysis. Coronal and sagittal reformats were performed. For radiation dose reduction, the following was used: automated exposure control, adjustment of mA and/or kV according to patient size. COMPARISON: None. FINDINGS: Image quality: Diagnostic. Lower Chest: No significant findings. ABDOMEN: Liver: No solid mass. Gallbladder: No radiopaque gallstones or wall thickening. Biliary ducts: No biliary dilation. Pancreas: No ductal dilation. Spleen: Size is within normal limits. Adrenal Glands: No adrenal nodules. Kidneys and Ureters: No hydronephrosis. No solid mass. No complex renal cystic lesion which requires follow up. Stomach and Bowel: Normal colonic caliber, without significant wall thickening. Normal appendix. Peritoneum: No abnormal intraperitoneal fluid. No free air. Ventral Wall: No significant ventral hernia. Abdominal Nodes: No retroperitoneal or mesenteric adenopathy by size criteria. Vessels: Aorta and inferior vena cava are normal in size. PELVIS: Pelvic Organs: Unremarkable. Bladder: No bladder wall thickening, accounting for underdistention. Pelvic Nodes: No enlarged lymph nodes. Miscellaneous: No inguinal hernias are seen. Bones: No aggressive osseous abnormality. IMPRESSION: Negative examination. Dictated by: Mook Arteaga M.D. on 08/02/2025 at 16:27 Approved by: Mook Arteaga M.D. on 08/02/2025 at 16:33 [facility] Narrative Medical decision making narrative: All lab work, vital signs, nurse triage note, medication list, previous ER visits, and all imaging studies reviewed. WBC 9.1 hemoglobin 17.3 platelet 273 sodium 140 potassium 3.7 chloride 104 CO2 26 BUN 10 creatinine 0.[address] UA [address] abdomen and pelvis showed no acute process. Patient given LR 1 L bolus, toradol and zofran here. Patient will be discharged on Zofran rx. Differential diagnosis pancreatitis, diverticulitis, appendicitis, kidney stone, kidney infection, cyclic abdominal vomiting syndrome. Discharge Plan Departure Patient Disposition: Home Clinical Impression: Abdominal pain, acute, left lower quadrant, Nausea Instructions: DI for Abdominal Pain-Adult Activity Restrictions/Additional Instructions: Return with new or worsening symptoms. Keep hydrated. Follow up PCP next week if no improvement in symptoms. Clear liquid diet advance as tolerated. Prescriptions: New ondansetron HCl 4 mg tablet 4 mg PO Q6H PRN (Reason: nausea and vomiting) Qty: 30 0RF No Action ondansetron HCl [Zofran] 4 mg tablet 4 mg PO Q6H PRN (Reason: nausea and vomiting) Qty: 5 0RF hydrocodone-acetaminophen 5-325 mg tablet 1 tab PO Q6H PRN (Reason: pain) Qty: 7 0RF ondansetron 4 mg tablet,disintegrating 4 mg PO Q8H PRN (Reason: nausea and vomiting) Qty: 10 0RF metoprolol tartrate 25 mg tablet 1 tab PO BID Patient Comments: not sure of date last taken...states was in November. cannot find medication. diphenhydramine-acetaminophen [[place]] 12.5-325 mg Tablet 1 tab PO PRN PRN (Reason: Headache) Unknown Night Medication 1 tab PO BEDTIME PRN (Reason: Migraine Headache) Patient Comments: patient misplaced medication. has not taken for some time. Written for by Dr. Harriet Palacios hydrocodone-acetaminophen [[employer]] 5-325 mg tablet 1 tab PO Q4-6H PRN (Reason: pain) Qty: 10 0RF cyclobenzaprine 10 mg tablet 10 mg PO TID PRN (Reason: muscle spasm) Qty: 12 0RF hydrocodone-acetaminophen [[employer]] 5-325 mg tablet 1 tab PO Q6H PRN (Reason: pain) Qty: 7 0RF ondansetron 4 mg tablet,disintegrating 4 mg PO Q6H PRN (Reason: nausea and vomiting) Qty: 20 0RF cyclobenzaprine 10 mg tablet 10 mg PO TID PRN (Reason: muscle spasm) Qty: 21 0RF ondansetron 4 mg tablet,disintegrating 4 mg PO Q8H PRN (Reason: nausea and vomiting) Qty: 14 0RF Referrals: Sylvia Huynh MD [Primary Care Provider, Family Practice] Stand Alone Forms: Patient Portal/API
[2025-08-02] MEDS: KETOROLAC 30 MG/ML VIAL 15 MG IV (15:39)
[2025-08-02 15:41] LABS: Add Manual Diff / Slide Review NO; Hematocrit 48.7 % (41-53); Hemoglobin 17.3 g/dL (13.5-17.5); Lymphocytes Absolute Auto 2100 /uL (1100-4500); Mean Corpuscular HGB Conc 35.6 % (30-36); Mean Corpuscular Hemoglobin 30.8 PG (26-34); Mean Corpuscular Volume 86.5 fL (80-100); Platelet Count 273 X10^3/uL (150-400)
[2025-08-02 15:50] LABS: Alanine Aminotransferase 24 IU/L (<50); Albumin 5.2 g/dL (3.5-5.0); Albumin Globulin Ratio 1.7 (1.0-2.8); Alkaline Phosphatase 48 U/L (38-126); Blood Urea Nitrogen 10 mg/dL (9-20); Calcium 9.4 mg/dL (8.4-10.2); Carbon Dioxide 26 mmol/L (22-32); Chloride 104 mmol/L (98-107); Estimated Glomerular Filt Rate > 60 mL/min (>60); Globulin 3.0 g/dL (1.7-4.1); Glucose 95 mg/dL (70-99); HEMOLYSIS < 15 (0-50); Lipase 60 U/L (23-300); Potassium 3.7 mmol/L (3.4-5.1); Sodium 140 mmol/L (137-145); Total Protein 8.2 g/dL (6.3-8.2)
[2025-08-02] MEDS: LACTATED RINGERS 1,000 ML 1000 ML IV (17:05)
== END 2025-08-02 18:07 | disposition home or self-care (01) ==
PROVIDERS: Emergency Provider Family Medicine; PCP Family Medicine
DX: R10.32 Left lower quadrant pain (principal); R11.0 Nausea
CPT/HCPCS: 36415; 74177; 80053; 81003; 81015; 83690; 85025; 87086; 96361; 96374; 99284; J1885; J7120; Q9967